=== PATIENT | male | born 1950 | race Caucasian/White ===

== ENCOUNTER → 2017-05-19 | Outpatient (CLI) | payer MEDICARE, OTHER | LOC: M ADAMS 11:13 | DX: S42.251A Displaced fracture of greater tuberosity of right humerus, initial encounter for closed fracture (principal); M85.80 Other specified disorders of bone density and structure, unspecified site; S20.211A Contusion of right front wall of thorax, initial encounter; W19.XXXA Unspecified fall, initial encounter; Y92.89 Other specified places as the place of occurrence of the external cause; Y93.89 Activity, other specified; Y99.8 Other external cause status | CPT/HCPCS: 71101 ==

== ENCOUNTER → 2019-06-22 | Outpatient (REF) | payer OTHER ==
[~2019-06-22] MED LIST: ASPI-527 PO; ATOR1TAB21 PO; DIGO0.12 PO; LEVA750T7 PO; LISI-542 PO; LOPR1TAB7 PO; METF500T13 PO; METO100T5 PO; NICO21DI3 TD; PRED20TAB PO; PROAAER10 INH; PROT1TAB2 PO; TAMS0.4C2 PO
[2019-06-22 17:34] LABS: APPEARANCE, URINE CLEAR (CLEAR); BACTERIA, URINE AUTO NEGATIVE (NEGATIVE); BILIRUBIN, URINE AUTO NEGATIVE (NEGATIVE); BLOOD, URINE BLOOD NEGATIVE (NEGATIVE); COLOR, URINE YELLOW (YELLOW); GLUCOSE, URINE (UA) AUTO 1+ mg/dL (NEGATIVE); KETONE, URINE AUTO NEGATIVE (NEGATIVE); LEUKOCYTE ESTERASE, URINE AUTO NEGATIVE (NEGATIVE); NITRITE, URINE AUTO NEGATIVE (NEGATIVE); PROTEIN, URINE AUTO NEGATIVE (NEGATIVE); RBC, URINE AUTO 1 /HPF (0-3); SQUAMOUS EPITHELIAL CELL UR AU 0 /HPF (0-6); UROBILINOGEN, URINE AUTO 0.2 mg/dL (0.0-2.0); WBC, URINE AUTO 5 /HPF (0-3)
== END ==
LOC: M SMT 16:56
PROVIDERS: ATTEND Nurse Practitioner Women's Health
DX: N40.1 Benign prostatic hyperplasia with lower urinary tract symptoms (principal)
CPT/HCPCS: 51798; 81001; 87088; 87186; G0463

== ENCOUNTER → 2019-10-25 | Outpatient (CLI) | payer MEDICARE, OTHER ==
[~2019-10-25] MED LIST changes: +AMOX875T2 PO; +CIPR-249 PO; +D3 +TAB PO; +DIGO0.123 PO; +GABA-1171 PO; +LISI2.5T2; +METF10004; +METO100T5; +TAMS1CAP17
--- NOTE | 2019-10-26 04:36 | REP ---
REASON: Heel pain. I have been given no history of trauma. The exam is limited by technique. The angle of Gissane appears somewhat acute and sclerotic. I cannot rule out the possibility of a compressed fracture involving the os calcis. Consider followup with CT. Electronically Signed by Jack Adair DO 10/26/2019 04:33 P
== END ==
LOC: M ADAMS 14:05
PROVIDERS: ATTEND Physician Assistant
DX: M79.671 Pain in right foot (principal)

== ENCOUNTER 2020-01-10 19:56 | Emergency (ER) | payer MEDICARE, OTHER ==
[~2020-01-10] VITALS: Ht 172.7 cm; Wt 94.5 kg
[~2020-01-10 19:56] MED LIST changes: -AMOX875T2 PO; -CIPR-249 PO; -D3 +TAB PO; -DIGO0.123 PO; -GABA-1171 PO; -LISI2.5T2; -METF10004; -METO100T5; -TAMS1CAP17
[2020-01-10 19:57] VITALS: BP 130/83
[2020-01-10] MEDS ORDERED: D3 +TAB PO (20:06)
[2020-01-10 21:07] LABS: HEMATOCRIT 47.6 % (42.0-52.0); HEMOGLOBIN 15.6 g/dl (13.5-17.5); MEAN CORPUSCULAR HEMOGLOBIN 32.1 pg (27.0-33.0); MEAN CORPUSCULAR HGB CONC 32.8 g/dl (32.0-36.5); MEAN CORPUSCULAR VOLUME 97.9 fl (80.0-96.0); PLATELET COUNT, AUTOMATED 188 10^3/uL (150-450); RED BLOOD COUNT 4.86 10^6/uL (4.30-6.10); WHITE BLOOD COUNT 8.8 10^3/uL (4.0-10.0)
[2020-01-10 21:32] LABS: BLOOD UREA NITROGEN 12 MG/DL (7-18); CALCIUM LEVEL 8.9 MG/DL (8.8-10.2); CARBON DIOXIDE LEVEL 29 MEQ/L (21-32); CHLORIDE LEVEL 106 MEQ/L (98-107); CREATININE FOR GFR 0.96 MG/DL (0.70-1.30); GLOMERULAR FILTRATION RATE > 60.0 (>42); GLUCOSE, FASTING 145 MG/DL (70-100); POTASSIUM SERUM 4.6 MEQ/L (3.5-5.1); SODIUM LEVEL 139 MEQ/L (136-145); URIC ACID 4.5 MG/DL (3.5-7.2)
--- NOTE | 2020-01-10 21:56 | REPVR ---
PROCEDURE INFORMATION: Exam: US Duplex Right Lower Extremity Veins, Limited Exam date and time: 01/10/2020 9:46 PM Age: 70 years old Clinical indication: Swelling (edema) of limb; Lower extremity, right; Additional info: Rubor TECHNIQUE: Imaging protocol: Real-time Duplex ultrasound of the Right Lower Extremity with 2-D bermudez scale, color Doppler flow and spectral waveform analysis with image documentation. Limited exam was focused on the right lower extremity veins. COMPARISON: No relevant prior studies available. FINDINGS: Right deep veins: Unremarkable. The common femoral, femoral, proximal profunda femoral and popliteal veins are patent without thrombus. Normal Doppler waveforms. Normal compressibility and/or augmentation response. Right superficial veins: Unremarkable. Saphenofemoral junction is patent without thrombus. Soft tissues: Unremarkable. IMPRESSION: No sonographic evidence of deep vein thrombosis. Electronically signed by: Jaswinder Varma On 01/10/2020 21:56:05 PM
[2020-01-10] MEDS ORDERED: GABA-1171 PO (22:26)
[2020-01-10] MEDS ORDERED: GABAPENTIN 100 MG CAP PO ONE (22:30)
[2020-02-09] MEDS ORDERED: DIGO0.123 PO (15:33)
[2020-02-09] MEDS ORDERED: TAMS1CAP17 (15:33)
[2020-02-09] MEDS ORDERED: LISI2.5T2 (15:33)
[2020-02-09] MEDS ORDERED: METO100T5 (15:33)
[2020-02-09] MEDS ORDERED: METF10004 (15:33)
[2020-02-16] MEDS ORDERED: AMOX875T2 PO (10:46)
[2020-02-16] MEDS ORDERED: CIPR-249 PO (13:33)
== END 2020-01-10 23:20 | disposition home or self-care (01) ==
LOC: M ED 19:56
DX: I73.9 Peripheral vascular disease, unspecified (principal); R22.41 Localized swelling, mass and lump, right lower limb; E11.40 Type 2 diabetes mellitus with diabetic neuropathy, unspecified; R20.8 Other disturbances of skin sensation; I51.9 Heart disease, unspecified; I10 Essential (primary) hypertension; E78.5 Hyperlipidemia, unspecified; J44.9 Chronic obstructive pulmonary disease, unspecified; F17.200 Nicotine dependence, unspecified, uncomplicated; Z79.82 Long term (current) use of aspirin; Z79.84 Long term (current) use of oral hypoglycemic drugs; Z79.899 Other long term (current) drug therapy

== ENCOUNTER → 2020-02-11 | Outpatient (CLI) | payer MEDICARE, OTHER ==
[~2020-02-11] MED LIST changes: +AMOX875T2 PO; +CIPR-249 PO; +D3 +TAB PO; +DIGO0.123 PO; +GABA-1171 PO; +LISI2.5T2; +METF10004; +METO100T5; +TAMS1CAP17
== END ==
LOC: M LABSMTC 10:05
PROVIDERS: ATTEND Anesthesiology
DX: Z01.812 Encounter for preprocedural laboratory examination (principal); Z20.828 Contact with and (suspected) exposure to other viral communicable diseases
CPT/HCPCS: C9803; U0003

== ENCOUNTER → 2020-02-16 | Day surgery (SDC) | payer OTHER ==
[~2020-02-16] VITALS: Ht 172.7 cm; Wt 95.6 kg
[~2020-02-16] MED LIST changes: +ACETAMINOPHEN 1000MG 100ML IV BTL (OFIRMEV) (J0131 PER 10MG) As Ordered ONE; +ACETAMINOPHEN TAB 650MG DOSE (2X325MG) PO PRN; +FUROSEMIDE 100MG/10ML VIAL (J1940) As Ordered ONE; +HumaLOG INSULIN (NovoLOG) PER UNIT As Ordered ONE; +HumaLOG INSULIN (NovoLOG) PER UNIT SC ONE; +LIDOCAINE 2% 100MG/5ML SDV (FOR ANES.) As Ordered ONE; +LR 1,000 ML IV ONE; +LR 1,000 ML IV SCH; +METOCLOPRAMIDE INJ 10MG/2ML VIAL (J2765 PER 1) IV PRN; +METOPROLOL 5 MG/5 ML VIAL As Ordered ONE; +MIDAZOLAM INJ 2MG/2ML VIAL (J2250 PER 1MG) As Ordered ONE; +ONDANSETRON 4MG/2ML VIAL As Ordered ONE; +ONDANSETRON 4MG/2ML VIAL IV PRN; +PERCOCET 5MG/325MG TAB PO PRN; +PHENYLEPHRINE 10MG/ML 1ML VIAL (J2370 PER 1) As Ordered ONE; +ROCURONIUM BROMIDE 50 MG/5 ML VIAL As Ordered ONE; +SUGAMMADEX SODIUM 500 MG/5 ML VIAL (BRIDION) As Ordered ONE; +VASOPRESSIN INJ 20 UNITS/ML VIAL As Ordered ONE; +ceFAZolin SOD 2 GM in IV 1 EA IV ONE; +dexameTHASONE 4 MG/ML 1ML VIAL (J1100 PER 1MG) As Ordered ONE; +fentaNYL 100 MCG/2 ML INJECTION (J3010) IV PRN; +fentaNYL 250 MCG/5 ML INJECTION (J3010) As Ordered ONE; +propofoL 200 MG/20 ML VIAL As Ordered ONE
--- NOTE | 2020-02-16 13:31 | ROOPDOC ---
[facility] Report Of Operation Report of Operation DATE OF PROCEDURE: 02/16/20 PREPROCEDURE DIAGNOSIS: Benign prostatic hyperplasia. POSTPROCEDURE DIAGNOSIS: Benign prostatic hyperplasia, meatal stenosis PROCEDURE: Cystoscopy, button transurethral electrovaporization of the prostate, urethral dilation. SURGEON: Daniella Vicente MD OVERHEAD LINE WORKER: None. ANESTHESIA: General. OPERATIVE INDICATIONS: This is a 70-year-old male with benign prostatic and lower urinary tract symptoms refractory to medical therapy. He was brought to the operating room today for treatment. DESCRIPTION OF PROCEDURE: The patient was brought to the operating room and general anesthesia was induced. Prophylactic antibiotics were infused. He was placed in the dorsal lithotomy position and prepped and draped in the usual sterile fashion. At this point, I attempted to insert a resectoscope into the urethral meatus using a visual obturator, but it would not go as the urethral meatus was a little bit too narrow. I, therefore, dilated the urethral meatus to a 30-Mohawk using curved metal sounds. I then was able to advance the resectoscope into the urethra and into the bladder. Of note, the patient's urethra was narrow throughout, but I was ultimately able to get the scope into the bladder. The patient had trilobar benign prostatic hyperplasia. I made note of the location of both ureteral orifices, as well as the verumontanum. At this point, I began vaporizing hyperplastic tissue on the median lobe and then circumferentially of the bladder neck. I then vaporized hyperplastic tissue on both lateral lobes. I kept doing this until there was a clear channel established. Once there was a clear channel established, hemostasis was obtained using the coagulation curren t. Once satisfied with hemostasis, the resectoscope was removed and an 18-Mohawk Stewart catheter was inserted into the bladder. The balloon was filled with 15 mL of sterile water and then the catheter was connected to gravity drainage. This marked the conclusion of the procedure. The patient was taken out of the dorsal lithotomy position, awakened from anesthesia and transported to the recovery room in stable condition. Estimated blood loss: 20 mL. Complications: None. Specimens: None. PLAN: The patient will followup in the clinic in approximately 1 week for catheter removal and a voiding trial. DANIELLA VICENTE MD Feb 16, 2020 13:31
[2020-02-16 16:00] VITALS: BP 129/81
== END | disposition home or self-care (01) ==
LOC: M SDC 09:58
PROVIDERS: ATTEND Urology
DX: N40.1 Benign prostatic hyperplasia with lower urinary tract symptoms (principal); N35.911 Unspecified urethral stricture, male, meatal; I10 Essential (primary) hypertension; I48.91 Unspecified atrial fibrillation; J44.9 Chronic obstructive pulmonary disease, unspecified; E11.9 Type 2 diabetes mellitus without complications; F17.218 Nicotine dependence, cigarettes, with other nicotine-induced disorders; E78.00 Pure hypercholesterolemia, unspecified; K21.9 Gastro-esophageal reflux disease without esophagitis; Z79.82 Long term (current) use of aspirin; Z79.84 Long term (current) use of oral hypoglycemic drugs; Z79.51 Long term (current) use of inhaled steroids; Z79.899 Other long term (current) drug therapy
CPT/HCPCS: 52601; J0131; J0690; J1100; J1940; J2250; J2370; J2405; J3010

== ENCOUNTER 2020-03-11 14:41 | Inpatient (IN) | payer OTHER ==
[~2020-03-11] VITALS: Ht 175.3 cm; Wt 99.3 kg
[~2020-03-11 14:41] MED LIST changes: -ACETAMINOPHEN 1000MG 100ML IV BTL (OFIRMEV) (J0131 PER 10MG) As Ordered ONE; -ACETAMINOPHEN TAB 650MG DOSE (2X325MG) PO PRN; -FUROSEMIDE 100MG/10ML VIAL (J1940) As Ordered ONE; -HumaLOG INSULIN (NovoLOG) PER UNIT As Ordered ONE; -HumaLOG INSULIN (NovoLOG) PER UNIT SC ONE; -LIDOCAINE 2% 100MG/5ML SDV (FOR ANES.) As Ordered ONE; -LISI2.5T2; +LISI2.5T2 PO; -LR 1,000 ML IV ONE; -LR 1,000 ML IV SCH; -METF10004; +METF10004 PO; -METO100T5; -METOCLOPRAMIDE INJ 10MG/2ML VIAL (J2765 PER 1) IV PRN; -METOPROLOL 5 MG/5 ML VIAL As Ordered ONE; -MIDAZOLAM INJ 2MG/2ML VIAL (J2250 PER 1MG) As Ordered ONE; -ONDANSETRON 4MG/2ML VIAL As Ordered ONE; -ONDANSETRON 4MG/2ML VIAL IV PRN; -PERCOCET 5MG/325MG TAB PO PRN; -PHENYLEPHRINE 10MG/ML 1ML VIAL (J2370 PER 1) As Ordered ONE; -ROCURONIUM BROMIDE 50 MG/5 ML VIAL As Ordered ONE; -SUGAMMADEX SODIUM 500 MG/5 ML VIAL (BRIDION) As Ordered ONE; -TAMS1CAP17; +TAMS1CAP17 PO; -VASOPRESSIN INJ 20 UNITS/ML VIAL As Ordered ONE; -ceFAZolin SOD 2 GM in IV 1 EA IV ONE; -dexameTHASONE 4 MG/ML 1ML VIAL (J1100 PER 1MG) As Ordered ONE; -fentaNYL 100 MCG/2 ML INJECTION (J3010) IV PRN; -fentaNYL 250 MCG/5 ML INJECTION (J3010) As Ordered ONE; -propofoL 200 MG/20 ML VIAL As Ordered ONE
[2020-03-11] MEDS ORDERED: ACETAMINOPHEN TAB 650MG DOSE (2X325MG) PO ONE (15:30)
[2020-03-11 16:15] LABS: BASO # 0.1 10^3/uL (0.0-0.2); BASO % 0.3 % (0.0-1.0); EOS % 0.1 % (0.0-3.0); HEMATOCRIT 46.2 % (42.0-52.0); HEMOGLOBIN 15.3 g/dl (13.5-17.5); LYMPH # 0.6 10^3/uL (1.5-5.0); LYMPH % 3.1 % (24.0-44.0); MEAN CORPUSCULAR HEMOGLOBIN 30.7 pg (27.0-33.0); MEAN CORPUSCULAR HGB CONC 33.1 g/dl (32.0-36.5); MEAN CORPUSCULAR VOLUME 92.8 fl (80.0-96.0); MONO # 1.2 10^3/uL (0.0-0.8); MONO % 6.3 % (0.0-5.0); NEUTROPHILS # 17.1 10^3/uL (1.5-8.5); NEUTROPHILS % 88.5 % (36.0-66.0); PLATELET COUNT, AUTOMATED 175 10^3/uL (150-450); RED BLOOD COUNT 4.98 10^6/uL (4.30-6.10); WHITE BLOOD COUNT 19.4 10^3/uL (4.0-10.0)
[2020-03-11] MEDS ORDERED: cefTRIAXone SOD 2 GM in D5W MINI-BAG PLUS 50 ML IV ONE (17:00)
--- NOTE | 2020-03-11 17:23 | REP ---
INDICATION: Altered Mental Status COMPARISON: 09/18/2015 TECHNIQUE: Portable AP view of the chest FINDINGS: The mediastinum and cardiac silhouette are stable and within normal limits for portable technique. The lung guerra are clear without acute consolidation, effusion, or pneumothorax. Skeletal structures are intact. IMPRESSION: No acute cardiopulmonary process appreciated. <Electronically signed by Kojo Meyers > 03/11/20 [id number]
[2020-03-11] MEDS ORDERED: NS 500 ML IV ONE (17:30)
[2020-03-11] MEDS ORDERED: METOPROLOL 5 MG/5 ML VIAL IV STA ×2 (17:45→18:47)
[2020-03-11 18:17] LABS: ACETAMINOPHEN LEVEL 3.6 UG/ML (10.0-30.0); ALBUMIN 3.4 GM/DL (3.2-5.2); ALT/SGPT 45 U/L (12-78); BILIRUBIN,DIRECT 0.4 MG/DL (0.0-0.2); BILIRUBIN,TOTAL 1.1 MG/DL (0.2-1.0); BLOOD UREA NITROGEN 18 MG/DL (7-18); CALCIUM LEVEL 9.5 MG/DL (8.8-10.2); CARBON DIOXIDE LEVEL 26 MEQ/L (21-32); CHLORIDE LEVEL 102 MEQ/L (98-107); CK-MB VALUE MASS 1.2 NG/ML (<3.6); CPK CREATINE PHOSPHOKINASE 47 U/L (39-308); CREATININE FOR GFR 1.09 MG/DL (0.70-1.30); DIGOXIN LEVEL 0.4 NG/ML (0.5-2.0); ETHYL ALCOHOL (ETHANOL) < 0.003 % (0.000-0.010); GLOMERULAR FILTRATION RATE > 60.0 (>42); GLUCOSE, FASTING 195 MG/DL (70-100); MB/CK RELATIVE INDEX 2.55 (< OR =4); POTASSIUM SERUM 4.7 MEQ/L (3.5-5.1); SALICYLATE LEVEL < 1.7 MG/DL (5.0-30.0); SODIUM LEVEL 136 MEQ/L (136-145); THYROID STIMULATING HORMONE 0.294 uIU/ML (0.358-3.740); TOTAL PROTEIN 6.6 GM/DL (6.4-8.2); TROPONIN I 0.04 NG/ML (< 0.10)
--- NOTE | 2020-03-11 18:18 | REPVR ---
PROCEDURE INFORMATION: Exam: CT Head Without Contrast Exam date and time: 03/11/2020 6:00 PM Age: 70 years old Clinical indication: Altered mental status/memory loss TECHNIQUE: Imaging protocol: Computed tomography of the head without contrast. Radiation optimization: All CT scans at this facility use at least one of these dose optimization techniques: automated exposure control; mA and/or kV adjustment per patient size (includes targeted exams where dose is matched to clinical indication); or iterative reconstruction. COMPARISON: No relevant prior studies available. FINDINGS: Brain: There is no acute intracranial hemorrhage, cerebral edema, or midline shift. Age-related cerebral and cerebellar volume loss is present. Cerebral ventricles: No hydrocephalus. Bones/joints: No acute fracture. Paranasal sinuses: There is no acute sinusitis. Mastoid air cells: Visualized mastoid air cells are well aerated. Orbital cavity: Unremarkable as visualized. Soft tissues: Unremarkable. IMPRESSION: No acute intracranial abnormality. Electronically signed by: Josiah Vasquez On 03/11/2020 18:18:46 PM
[2020-03-11] MEDS ORDERED: VITA-122 PO (18:44)
[2020-03-11] MEDS ORDERED: HYDR-3713 PO (18:44)
[2020-03-11] MEDS ORDERED: GUAI400T9 PO (18:44)
[2020-03-11] MEDS ORDERED: PATIENT COMMENT (18:46)
[2020-03-11 18:52] LABS: FREE T4 1.37 NG/DL (0.76-1.46)
[2020-03-11 19:14] LABS: AMPHETAMINES LEVEL URINE NEGATIVE (NEGATIVE); BARBITURATES URINE NEGATIVE (NEGATIVE); BENZODIAZEPINES URINE NEGATIVE (NEGATIVE); CANNABINOIDS URINE NEGATIVE (NEGATIVE); COCAINE METABOLITE URINE NEGATIVE (NEGATIVE); METHADONE URINE NEGATIVE (NEGATIVE); OPIATES URINE NEGATIVE (NEGATIVE); PHENCYCLIDINE URINE NEGATIVE (NEGATIVE)
[2020-03-11] MEDS ORDERED: NS 1,000 ML IV ONE (20:00)
[2020-03-11] MEDS ORDERED: MOM 30ML SUSPENSION UDC PO PRN (20:00)
[2020-03-11] MEDS ORDERED: MAALOX 30 ML SUSP *UDC PO PRN (20:00)
[2020-03-11] MEDS ORDERED: DIGOXIN INJ 0.5 MG/2 ML AMP (J1160) IV SCH (20:00)
[2020-03-11] MEDS ORDERED: SODIUM CHLORIDE 0.9% 1000ML IV ONE (20:00)
--- NOTE | 2020-03-11 20:05 | HPEPDOC ---
[facility] Medical History & Physical Date of Admission Mar 11, 2020 Date of Service: Mar 11, 2020 Primary Care Physician: Estefania Herzog Attending Physician: TRACEY MORALEZ MD History and Physical TIME OF SERVICE: 9:37 PM CHIEF COMPLAINT: Confusion HISTORY OF PRESENT ILLNESS: This 70 year old woman was found by his walking around his backyard in a confused state at around 1 PM; she noted that he appeared to be leaning to the left when he was walking. Based on EMS assessment, he was noted to be febrile. Per Dr. Solomon the patient did not answer any questions and just stared at him blankly. Some of the nursing staff reported that the patient was able to say his name but he wasn't able to provide some history. At the time of my evaluation, the patient was unable to explain why he came to the hospital, and occasionally stared at me or stared into space, as I asked him questions. During one of the moments when he was lucid, he denied having any pain. REVIEW OF SYSTEMS: Unobtainable because the patient is confused PAST MEDICAL/ SURGICAL HISTORY: Atrial fibrillation HTN Type 2 diabetes Dyslipidemia Probable COPD has a [id number] habit BPH Bilateral inguinal hernia repair and umbilical hernia repair SOCIAL HISTORY: He smokes He lives with his FAMILY HISTORY: Unobtainable because the patient is confused ALLERGIES: Please see below. HOME MEDICATIONS: Please see below. PHYSICAL EXAMINATION: Vital Signs Date Time Temp Pulse Resp B/P (MAP) Pulse Ox O2 Delivery O2 Flow Rate FiO2 03/11/20 15:00 101.0 128 20 145/78 97 Nasal Cannula 2.0 GEN: well-nourished / well developed INTEGUMENT: not flushed/ not jaundice / has multiple ulcers on RLE, the foot and leg are purplish in color and cool to touch but he does't grimace or withdraw w ith palpation of the lower leg or foot HEENT: lips acyanotic /mucus membranes moist and pink CVS: HR irregularly irregular /NMRG/ radial pulses intact/ LLE edema LUNGS: no coughing / breath sounds are diminished ABDOMEN: Contour (flat ) /soft & he doesn't grimace with palpation MSK/EXTREMITIES: NCAT / LLE is swollen when compared to RLE PSYCH: alert / not tracking my movements / inconsistently following commands and answering questions / intermittently seems distracted and stares into space LABORATORY DATA: 03/11/20 15:28 03/11/20 17:22 03/11/20 15:28: Immature Granulocyte % (Auto) 1.7, Neutrophils (%) (Auto) 88.5H, Lymphocytes (%) (Auto) 3.1L, Monocytes (%) (Auto) 6.3H, Eosinophils (%) (Auto) 0.1, Basophils (%) (Auto) 0.3, Neutrophils # (Auto) 17.1H, Lymphocytes # (Auto) 0.6L, Monocytes # (Auto) 1.2H, Eosinophils # (Auto) 0.0, Basophils # (Auto) 0.1, Nucleated Red Blood Cells % (auto) 0.0, Urine Color YELLOW, Urine Appearance CLOUDYH, Urine pH 6.0, Urine Specific Barrett 1.019, Urine Protein 1+H, Urine Glucose (UA) 1+H, Urine Ketones NEGATIVE, Urine Blood 3+H, Urine Nitrite POSITIVEH, Urine Bilirubin NEGATIVE, Urine Urobilinogen 0.2, Urine Leukocyte Esterase 3+H, Urine WBC (Auto) TNTCH, Urine RBC (Auto) 177H, Urine Hyaline Casts (Auto) 0, Urine Bacteria (Auto) 2+H, Urine Squamous Epithelial Cells 1, Urine Mucus (Auto) SMALL, Urine Sperm (Auto) , Lactic Acid Level 2.3*H, Ammonia 28, Urine Opiates Screen NEGATIVE, Urine Methadone Screen NEGATIVE, Urine Barbiturates Screen NEGATIVE, Urine Phencyclidine Screen NEGATIVE, Urine Amphetamines Screen NEGATIVE, Urine Benzodiazepines Screen NEGATIVE, Urine Cocaine Metabolite Screen NEGATIVE, Urine Cannabinoids Screen NEGATIVE 03/11/20 17:22: Anion Gap 8, Glomerular Filtration Rate > 60.0, Calcium Level 9.5, Total Bi lirubin 1.1H, Direct Bilirubin 0.4H, Aspartate Amino Transf (AST/SGOT) 14, Alanine Aminotransferase (ALT/SGPT) 45, Alkaline Phosphatase 125H, Total Creatine Kinase 47, Creatine Kinase MB 1.2, Creatine Kinase MB Relative Index 2.55, Troponin I 0.04, Total Protein 6.6, Albumin 3.4, Albumin/Globulin Ratio 1.1, Thyroid Stimulating Hormone (TSH) 0.294L, Free Thyroxine 1.37, Digoxin Level 0.4L, Salicylates Level < 1.7L, Acetaminophen Level 3.6L, Ethyl Alcohol Level < 0.003 IMAGING: CT head "No acute intracranial abnormality. " Chest xray "No acute cardiopulmonary process appreciated." MRI Brain "No acute intracranial lesion or injury within the limits of motion artifact." MRA Brain "Severely limited by motion artifact. No gross large vessel occlusion." MICROBIOLOGY: 03/11/20 Urine Culture, Received Pending 03/11/20 Respiratory Virus Panel (PCR) (DAISY) - Final, Complete 03/11/20 Blood Culture, Received Pending 03/11/20 Blood Culture, Received Pending ASSESSMENT: Mr. Vazquez is a 70-year-old with a history of atrial fibrillation, HTN, dyslipidemia, DM, BPH and probable COPD who was brought to the hospital for evaluation of confusion; he'll be admitted for management of sepsis secondary to UTI, metabolic encephalopathy, and rapid A. fib. PLAN: 1. Sepsis 2/2 UTI SIRS criteria: Temp >101 / HR >90 / WBC >12 / RR >20 Lactic acid >1 UA reviewed He received ceftriaxone and IV fluids in the ER Plan: admit to ICU / telemetry / trend lactic acid/ c/w IVF and ceftriaxone pending UCx and blood cx / Acetaminophen PRN for fever / target MAP at least 65 to 70 mmHG / f/u Is and Os with target UOP of at least 0.5 ml/kg/H / target serum glucose 140-180 while acutely ill 2. Encephalopathy Likley delerium due to infection and hypoperfusion of the brain due to rapid A. fib. I CT, MRI and MRA of the head are unrevealing Plan: frequent neurochecks / treat infection and afib / give one dose of Narcan now / hold Hydrocodone/Acetaminophen 3. Atrial Fibrillation w RVR Likely due to sepsis EKG showed rapid A. fib with a rate of 126 His dig levels were also little bit low. He received some digoxin and Lopressor in the ER, but continues to be tachycardic For unclear reasons he doesn't seem to be taking anticoagulation at home Plan: telemetry / c/w digoxin / start heparin drip / the day time team may consider calling his or PCP to obtain info about AC / trend trops & f/u Echo to r/o valvulopathy 4. Tachypnea likely 2/2 Mild Acute COPD I couldn't find documentation confirming a formal diagnosis of COPD but he has been smoking for 55yrs, takes albuterol at home and has treated for presumed acute COPD during previous hospital admissions Plan: supplemental O2 / continuous pulse oximetry / aspiration precautions / f/u VBG / Dunebs Q6H, Levalbuterol Q4HP/ Solmedrol now / Prednisone + PPI / he should be refer to [facility] for PFTs when he is ready for discharge 5. LLE swelling Plan: f/u US to r/o DVT 6. RLE discoloration and ulcers possibly due to PVD Plan: f/u RLE arterial duplex / day time team may consider Wound care consult for ulcers if they feel it is indicated in the morning 7. Chronic HTN Plan: c/w Metoprolol bc & hold lisinopril b/c I anticipate blood pressure might drop because of sepsis 8. Type 2 diabetes Plan: diabetic diet / f/u accuchecks & A1C / hypoglycemia protocol / sliding scale insulin / hold Metformin 9. Dyslipidemia Plan: Atorvastatin 10. BPH Plan: hold tamsulosin to avoid hypotension / Stewart DVT PROPHYLAXIS: Heparin drip DISPOSITION: home after more than 2 midnight's stay LATE ENTRY Hypomagnesemia. Plan: Replete magnesium Home Medications Scheduled Aspirin (Aspirin EC) 325 Mg Tab, 325 MG PO DAILY Atorvastatin Calcium (Atorvastatin Calcium) 20 Mg Tab, 20 MG PO DAILY Cholecalciferol (Vitamin D3) (Vitamin D3) 25 Mcg Tablet, 50 MCG PO DAILY Digoxin (Digoxin) 125 Mcg Tablet, 125 MCG PO DAILY Lisinopril (Lisinopril) 2.5 Mg Tablet, 2.5 MG PO DAILY Metformin HCl (Metformin HCl) 1,000 Mg Tablet, 1,000 MG PO BID Metoprolol Tartrate (Metoprolol Tartrate) 100 Mg Tablet, 100 MG PO BID Tamsulosin Hcl (Tamsulosin HCl) 0.4 Mg Capsule, 0.8 MG PO DAILY Scheduled PRN Albuterol Sulfate (Proair Hfa) 108 Mcg/Act Aer, 216 MCG INH Q4H PRN for SHORTNESS OF BREATH Guaifenesin (Guaifenesin) 400 Mg Tablet, 400 MG PO Q4H PRN for COUGH Hydrocodone/Acetaminophen (Hydrocodone-Acetamin 5-325 mg) 1 Each Tablet, 1 TAB PO Q4-6HP PRN for PAIN MDD 4 Miscellaneous Medications [Patient Comment] UNABLE TO VERIFY MEDICATIONS WITH PATIENT - MED LIST OBTAINED FROM PILL BOTTLES. PATIENT'S UNSURE IF PATIENT TOOK MORNING MEDICATIONS Allergies Coded Allergies: No Known Allergies (Unverified , 09/19/15) A-FIB/CHADSVASC A-FIB History Current/History of A-Fib/PAF?: No Current PO Anticoag Therapy: No TRACEY MORALEZ MD Mar 11, 2020 20:05
[2020-03-11] MEDS ORDERED: GLUCAGON INJ 1MG VIAL SC PRN (20:15)
[2020-03-11] MEDS ORDERED: DEXTROSE 50% 50 ML SYRINGE IV PRN (20:15)
[2020-03-11] MEDS ORDERED: HEPARIN SOD (PORCINE) 5000UNITS/ML 1ML VIAL/SYRINGE IV PRN (20:15)
[2020-03-11] MEDS ORDERED: GLUCOSE 4GM CHEW TABLET PO PRN (20:15)
[2020-03-11 21:16] LABS: VENOUS HCO3 24.2 MEQ/L (23.0-27.0); VENOUS O2 SATURATION 84.4 % (60.0-80.0); VENOUS PARTIAL PRESSURE CO2 38.1 mmHg (38.0-50.0); VENOUS STANDARD HCO3 24.1 MEQ/L; VENOUS TOTAL CO2 25.3 MEQ/L (24.0-28.0)
[2020-03-11] MEDS: HEPARIN DRIP 25,000 UNITS in IV 1 EA IV SCH (21:16)
[2020-03-11 21:21] LABS: MAGNESIUM LEVEL 1.5 MG/DL (1.8-2.4); NT-PRO BNP 591 PG/ML (<125); PHOSPHORUS LEVEL 3.1 MG/DL (2.5-4.9)
[2020-03-11 21:26] LABS: HEMATOCRIT 45.2 % (42.0-52.0); HEMOGLOBIN 14.8 g/dl (13.5-17.5); MEAN CORPUSCULAR HEMOGLOBIN 30.8 pg (27.0-33.0); MEAN CORPUSCULAR HGB CONC 32.7 g/dl (32.0-36.5); MEAN CORPUSCULAR VOLUME 94.2 fl (80.0-96.0); PLATELET COUNT, AUTOMATED 187 10^3/uL (150-450); WHITE BLOOD COUNT 20.9 10^3/uL (4.0-10.0)
--- NOTE | 2020-03-11 21:30 | REPVR ---
PROCEDURE INFORMATION: Exam: MR Head Without Contrast Exam date and time: 03/11/2020 8:40 PM Age: 70 years old Clinical indication: Altered mental status/memory loss; Confusion or disorientation; Patient HX: AMS; Additional info: CVA TECHNIQUE: Imaging protocol: MR of the head without contrast. COMPARISON: CT Head without contrast 03/11/2020 5:52 PM FINDINGS: Limitations: Extensive motion artifact limits this scan.. Brain: There is volume loss. DWI demonstrates no evidence of acute infarct. Gradient echo images demonstrate no evidence of hemorrhage. No extra-axial collection. Cerebral ventricles: There is no hydrocephalus. Bones/joints: Unremarkable. Paranasal sinuses: Normal as visualized. No acute sinusitis. Mastoid air cells: Normal as visualized. No mastoid effusion. Orbits: Unremarkable. Soft tissues: Unremarkable. IMPRESSION: No acute intracranial lesion or injury within the limits of motion artifact. Electronically signed by: Prince Fiore On 03/11/2020 21:30:27 PM
--- NOTE | 2020-03-11 21:32 | REPVR ---
PROCEDURE INFORMATION: Exam: MR Angiogram Head Without Contrast, Arteries Exam date and time: 03/11/2020 8:40 PM Age: 70 years old Clinical indication: Cognitive deficit; Altered mental status; Patient HX: AMS; Additional info: CVA TECHNIQUE: Imaging protocol: MR angiogram head without contrast. Exam focused on the arteries. 3D rendering (Not supervised by radiologist): MIP and/or 3D reconstructed images were created by the technologist. COMPARISON: CT Head without contrast 03/11/2020 5:52 PM FINDINGS: ANTERIOR CIRCULATION: Right internal carotid artery: Intracranial segment is patent with no significant stenosis. No aneurysm. Right middle cerebral artery: No occlusion or significant stenosis. No aneurysm. Right anterior cerebral artery: No occlusion or significant stenosis. No aneurysm. Left internal carotid artery: Intracranial segment is patent with no significant stenosis. No aneurysm. Left middle cerebral artery: No occlusion or significant stenosis. No aneurysm. Left anterior cerebral artery: No occlusion or significant stenosis. No aneurysm. POSTERIOR CIRCULATION: Right vertebral artery: No occlusion or significant stenosis. No aneurysm. Left vertebral artery: No occlusion or significant stenosis. No aneurysm. Basilar artery: No occlusion or significant stenosis. No aneurysm. Right posterior cerebral artery: No occlusion or significant stenosis. No aneurysm. Left posterior cerebral artery: No occlusion or significant stenosis. No aneurysm. Other findings: Extensive motion artifact limits the scan. IMPRESSION: Severely limited by motion artifact. No gross large vessel occlusion. Electronically signed by: Prince Fiore On 03/11/2020 21:31:57 PM
[2020-03-11 21:40] LABS: INR 1.16; PROTHROMBIN TIME 15.1 SECONDS (12.5-14.3)
[2020-03-11 21:41] LABS: PARTIAL THROMBOPLASTIN TIME 31.5 SECONDS (24.2-38.5)
[2020-03-11 22:00] VITALS: BP 122/79
--- NOTE | 2020-03-11 22:09 | ECGEPIP ---
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
[2020-03-11 23:45] VITALS: BP 127/74
--- NOTE | 2020-03-11 23:52 | REPVR ---
PROCEDURE INFORMATION: Exam: US Duplex Left Lower Extremity Veins, Limited Exam date and time: 03/11/2020 11:46 PM Age: 70 years old Clinical indication: Swelling (edema) of limb; Lower extremity, left; Additional info: R/O dvt TECHNIQUE: Imaging protocol: Real-time Duplex ultrasound of the Left Lower Extremity with 2-D bermudez scale, color Doppler flow and spectral waveform analysis with image documentation. Limited exam focused on the left lower extremity veins. COMPARISON: No relevant prior studies available. FINDINGS: Left deep veins: Unremarkable. The common femoral, femoral, proximal profunda femoral and popliteal veins are patent without thrombus. Normal Doppler waveforms. Normal compressibility and/or augmentation response. Left superficial veins: Unremarkable. Saphenofemoral junction is patent without thrombus. Soft tissues: Unremarkable. IMPRESSION: No evidence of deep vein thrombosis. Electronically signed by: Prince Fiore On 03/11/2020 23:52:01 PM
[2020-03-11] MEDS ORDERED: NALOXONE INJ 0.4MG/1ML VIAL (J2310 PER 1MG) IV STA (23:54)
[2020-03-12] VITALS (23 sets, daily range): BP systolic 102–170; BP diastolic 56–84
[2020-03-12] MEDS ORDERED: ACETAMINOPHEN 650 MG SUPP PR ONE
[2020-03-12] MEDS: HumaLOG INSULIN (NovoLOG) PER UNIT SC SCH ×4 (00:14→17:24)
[2020-03-12] MEDS ORDERED: methylPREDNISolone 125MG 2ML VIAL IV STA (01:28)
[2020-03-12] MEDS ORDERED: LEVALBUTEROL 1.25 MG/0.5 ML CONCENTRATE NEB INH PRN (01:30)
[2020-03-12] MEDS ORDERED: MAG SULF 1GM/100ML (MAG RUN) 1 GM in IV 1 EA IV ONE (01:30)
[2020-03-12] MEDS ORDERED: NS 1,000 ML IV ONE (01:30)
[2020-03-12] MEDS ORDERED: cefTRIAXone SOD 1GM VIAL (J0696 PER 250MG) IM SCH (02:00)
[2020-03-12 03:00] LABS: PHOSPHORUS LEVEL 2.2 MG/DL (2.5-4.9); TROPONIN I 0.05 NG/ML (< 0.10)
[2020-03-12] MEDS: NICOTINE 14 MG/24 HR TRANSDERMAL TD SCH ×2 (03:56→20:38)
[2020-03-12] MEDS ORDERED: ACETAMINOPHEN 650 MG SUPP PR PRN (05:00)
[2020-03-12] MEDS: IPRATROPIUM 0.5MG/ALBUTEROL 2.5MG INH SOL UD 3ML (DUONEB) NEB SCH ×4 (05:44→19:16)
[2020-03-12] MEDS: METOPROLOL TART 25 MG TABLET PO SCH ×3 (07:51→22:16)
[2020-03-12] MEDS: LACTOBACILLUS ACIDOPHILUS CAP (BACID) PO SCH ×3 (08:00→17:24)
[2020-03-12 08:18] LABS: BASO % 0.2 % (0.0-1.0); HEMATOCRIT 41.5 % (42.0-52.0); HEMOGLOBIN 13.7 g/dl (13.5-17.5); LYMPH # 0.7 10^3/uL (1.5-5.0); LYMPH % 4.3 % (24.0-44.0); MEAN CORPUSCULAR HEMOGLOBIN 31.1 pg (27.0-33.0); MEAN CORPUSCULAR VOLUME 94.1 fl (80.0-96.0); MONO # 0.7 10^3/uL (0.0-0.8); MONO % 4.1 % (0.0-5.0); NEUTROPHILS # 15.4 10^3/uL (1.5-8.5); NEUTROPHILS % 89.1 % (36.0-66.0); PLATELET COUNT, AUTOMATED 150 10^3/uL (150-450); RED BLOOD COUNT 4.41 10^6/uL (4.30-6.10); WHITE BLOOD COUNT 17.3 10^3/uL (4.0-10.0)
[2020-03-12 08:30] LABS: D-DIMER QUANT 1087.76 ng/ml (<500)
[2020-03-12 08:49] LABS: FREE THYROXINE INDEX 2.8 % (1.4-3.8); THYROID STIMULATING HORMONE 0.386 uIU/ML (0.358-3.740); THYROXINE (T4) 7.7 UG/DL (4.5-12.0)
[2020-03-12] MEDS ORDERED: ASPIRIN ENTERIC 325 MG TAB PO SCH (09:00)
[2020-03-12] MEDS ORDERED: METOPROLOL TARTRATE 100 MG TAB PO SCH (09:00)
[2020-03-12] MEDS ORDERED: VANCOMYCIN HCL 1,000 MG, VIAL MATE ADAPTER 1 EACH in D5W 250 ML IV ONE (09:00)
[2020-03-12] MEDS ORDERED: LISINOPRIL *2.5 MG* TAB PO SCH (09:00)
[2020-03-12 09:01] LABS: ALT/SGPT 35 U/L (12-78); BILIRUBIN,TOTAL 0.7 MG/DL (0.2-1.0); BLOOD UREA NITROGEN 17 MG/DL (7-18); C REACTIVE PROTEIN QUANTITATIV 9.91 MG/DL (0.00-0.30); CALCIUM LEVEL 8.8 MG/DL (8.8-10.2); CARBON DIOXIDE LEVEL 23 MEQ/L (21-32); CHLORIDE LEVEL 105 MEQ/L (98-107); CK-MB VALUE MASS 4.9 NG/ML (<3.6); CPK CREATINE PHOSPHOKINASE 599 U/L (39-308); CREATININE FOR GFR 1.03 MG/DL (0.70-1.30); FERRITIN 468 NG/ML (26-388); GLOMERULAR FILTRATION RATE > 60.0 (>42); GLUCOSE, FASTING 215 MG/DL (70-100); LDH LACTATE DEHYDROGENASE 221 U/L (87-241); MB/CK RELATIVE INDEX 0.82 (< OR =4); POTASSIUM SERUM 4.1 MEQ/L (3.5-5.1); SODIUM LEVEL 137 MEQ/L (136-145); TOTAL PROTEIN 6.2 GM/DL (6.4-8.2); TROPONIN I 0.05 NG/ML (< 0.10)
[2020-03-12 09:08] LABS: ERYTHROCYTE SEDIMENTATION RATE 20 mm/hr (0-20)
[2020-03-12] MEDS: PANTOPRAZOLE 40MG TAB (PROTONIX) PO SCH (09:14)
[2020-03-12] MEDS: TAMSULOSIN 0.4 MG CAP PO SCH (09:14)
[2020-03-12] MEDS: predniSONE 20 MG TAB PO SCH (09:14)
[2020-03-12] MEDS: ATORVASTATIN 20 MG TAB PO SCH (09:14)
[2020-03-12] MEDS: VITAMIN D 1,000 INTERNATIONAL UNITS TABLET PO SCH (09:14)
[2020-03-12] MEDS: DIGOXIN 0.125 MG TAB PO SCH (09:14)
[2020-03-12] MEDS ORDERED: VANCOMYCIN HCL 750 MG, VIAL MATE ADAPTER 1 EACH in D5W 250 ML IV ONE (10:00)
[2020-03-12 10:14] LABS: HEMOGLOBIN A1c 7.2 %
--- NOTE | 2020-03-12 10:26 | IPNPDOC ---
Date Seen The patient was seen on 03/12/20. Progress Note SUBJECTIVE: All patient was seen and examined at the bedside chart it's been reviewed. He remains tachycardic in atrial fibrillation but denies any chest pain, pressure, tightness, lightheadedness, palpitations, no nausea, vomiting, epigastric pain, feeling of impending doom or diaphoresis. He remains febrile with MAXIMUM TEMPERATURE of 103.8 despite being on IV ceftriaxone 1 g every 24 hourly. OBJECTIVE: PHYSICAL EXAMINATION: VITAL SIGNS: SEE BELOW. GENERAL: Awake, alert, oriented to person, answering questions appropriately. No respiratory distress or use of respiratory accessory muscles. HEENT: Dry mucous membranes, no JVD, thyromegaly or cervical lymphadenopathy. LUNGS: Diminished breath sounds. No wheezing or rales. No adventitious breath sounds. No use of respiratory accessory muscles. HEART: S1, S2, irregularly irregular. Tachycardic ABDOMEN:, Soft, nontender, nondistended, positive bowel sounds. No rebound or guarding EXTREMITIES: 2+ pitting edema to the sacrum. Chronic venous stasis changes bilaterally. Ecchymosis. Chronic venous ulcers noted in the right lower extr emity. 2 on the medial aspect 2 in the dorsal and 2 on the lateral aspect. No signs of cellulitis clean without purulence. LABORATORY DATA: SEE BELOW. MICROBIOLOGY: SEE BELOW. IMAGING STUDIES: SEE BELOW ASSESSMENT: 70-year-old with past medical history significant for chronic A. fib, hypertension, staph epi UTI, diabetes, dyslipidemia, [id number] history of tobacco abuse, BPH, bilateral inguinal hernia repair and umbilical hernia repair, still actively smoking cigarettes presented to the emergency room with complaints of confusion was found to have urinary tract infection and A. fib wit h RVR. Sepsis secondary to urinary tract infection Urinary tract infection A. fib with RVR Diabetes Dyslipidemia. Tobacco abuse. Actively smoking. BPH. Hypertension. Dyslipidemia. Acute encephalopathy secondary to sepsis and A. fib with RVR. Chronic venous sufficiency. Chronic venous ulcers in the bilateral lower extremities. PLAN: Patient has a history of gram-positive urinary tract infection. We will continue the patient's ceftriaxone but will add vancomycin and check an MRSA screen. If t he MRSA screen is negative, we'll discontinue patient's intravenous vancomycin. Blood cultures have also been sent and we will await the results. Due to increased risk of C. difficile with broad-spectrum antibiotics. We will start him on CHANDRA ID with meals and at hour of sleep. He is continued on his metoprolol for rate control, but will increase the dose to 75 mg every 8 hourly for a goal of 5 less than 100 on the heart rate. He is continued on a 22 g sodium consistent carbohydrate diet, sliding scale, fingersticks every before meals and at bedtime. Tobacco cessation counseling. Nicotine patch. Continue all other medications. If it has not already been checked. We'll also check A1c and lipid panel and adjust medications accordingly to reach his goals, PT will be consulted once patient's heart rate is improved and rate controlled. He may be transferred to medical surgical floor for now. He continues to need PCU. Digoxin level was within normal 0.4. If the blood pressure were to decrease less than 100. He may need IV digoxin for better rate control.. [facility] Vital Signs Date Time Temp Pulse Resp B/P (MAP) Pulse Ox O2 Delivery O2 Flow Rate FiO2 03/12/20 09:14 102 03/12/20 07:51 146/80 03/12/20 06:00 103.8 29 95 Room Air 03/11/20 16:30 2.0 I&O- Last 24 Hours up to 6 AM 03/12/20 06:00 Intake Total 3773.0 ml Output Total 330 ml Balance 3443.0 ml Laboratory Data 24H LABS Laboratory Tests 2 03/11/20 15:28: Immature Granulocyte % (Auto) 1.7, Neutrophils (%) (Auto) 88.5H, Lymphocytes (%) (Auto) 3.1L, Monocytes (%) (Auto) 6.3H, Eosinophils (%) (Auto) 0.1, Basophils (%) (Auto) 0.3, Neutrophils # (Auto) 17.1H, Lymphocytes # (Auto) 0.6L, Monocytes # (Auto) 1.2H, Eosinophils # (Auto) 0.0, Basophils # (Auto) 0.1, Nucleated Red Blood Cells % (auto) 0.0, Urine Color YELLOW, Urine Appearance CLOUDYH, Urine pH 6.0, Urine Specific [place] 1.019, Urine Protein 1+H, Urine Glucose (UA) 1+H, Urine Ketones NEGATIVE, Urine Blood 3+H, Urine Nitrite POSITIVEH, Urine Bilir ubin NEGATIVE, Urine Urobilinogen 0.2, Urine Leukocyte Esterase 3+H, Urine WBC (Auto) TNTCH, Urine RBC (Auto) 177H, Urine Hyaline Casts (Auto) 0, Urine Bacteria (Auto) 2+H, Urine Squamous Epithelial Cells 1, Urine Mucus (Auto) SMALL, Urine Sperm (Auto) , Lactic Acid Level 2.3*H, Ammonia 28, Urine Opiates Screen NEGATIVE, Urine Methadone Screen NEGATIVE, Urine Barbiturates Screen NEGATIVE, Urine Phencyclidine Screen NEGATIVE, Urine Amphetamines Screen NEGATIVE, Urine Benzodiazepines Screen NEGATIVE, Urine Cocaine Metabolite Screen NEGATIVE, Urine Cannabinoids Screen NEGATIVE 03/11/20 17:22: Anion Gap 8, Glomerular Filtration Rate > 60.0, Calcium Level 9.5, Phosphorus Level 3.1, Magnesium Level 1.5L, Total Bilirubin 1.1H, Direct Bilirubin 0.4H, Aspartate Amino Transf (AST/SGOT) 14, Alanine Aminotransferase (ALT/SGPT) 45, Alkaline Phosphatase 125H, Total Creatine Kinase 47, Creatine Kinase MB 1.2, Creatine Kinase MB Relative Index 2.55, Troponin I 0.04, CK-Nwn-B-Type Natriuretic Peptide 591H, Total Protein 6.6, Albumin 3.4, Albumin/Globulin Ratio 1.1, Thyroid Stimulating Hormone (TSH) 0.294L, Free Thyroxine 1.37, Digoxin Level 0.4L, Salicylates Level < 1.7L, Acetaminophen Level 3.6L, Ethyl Alcohol Level < 0.003 03/11/20 21:09: Nucleated Red Blood Cells % (auto) 0.0, Prothrombin Time 15.1H, Prothromb Time International Ratio 1.16, Activated Partial Thromboplast Time 31.5, Blood Gas Bicarbonate Standard 24.1, Venous Blood pH 7.420, Venous Blood Partial Pressure CO2 38.1, Venous Blood Partial Pressure O2 46.0, Venous Blood Total Carbon Dioxide 25.3, Venous Blood HCO3 24.2, Venous Blood Oxygen Saturation 84.4H, Venous Blood Base Excess 0.0, Lactic Acid Followup at 4 Hours 3.2*H 03/11/20 23:39: Bedside Glucose (Misc Panel) 187H 03/12/20 01:45: Activated Partial Thromboplast Time 70.0H, Lactic Acid Level 2.7*H, Phosphorus Level 2.2#L, Troponin I 0.05# 03/12/20 05:48: Bedside Glucose (Misc Panel) 182H 03/12/20 07:53: Activated Partial Thromboplast Time 98.5H, Troponin I 0.05, Immature Granulocyte % (Auto) 2.3, Neutrophils (%) (Auto) 89.1H, Lymphocytes (%) (Auto) 4.3L, Monocytes (%) (Auto) 4.1, Eosinophils (%) (Auto) 0.0, Basophils (%) (Auto) 0.2, Neutrophils # (Auto) 15.4H, Lymphocytes # (Auto) 0.7L, Monocytes # (Auto) 0.7, Eosinophils # (Auto) 0.0, Basophils # (Auto) 0.0, Nucleated Red Blood Cells % (auto) 0.0, Erythrocyte Sedimentation Rate 20, Fibrinogen 466H, D-Dimer, Quantitative 1087.76H, Anion Gap 9, Glomerular Filtration Rate > 60.0, Estimated Mean Plasma Glucose 160H, Hemoglobin A1c 7.2, Lactic Acid Followup at 4 Hours 2.7*H, Calcium Level 8.8, Ferritin 468H, Total Bilirubin 0.7, Aspartate Amino Transf (AST/SGOT) 27, Alanine Aminotransferase (ALT/SGPT) 35, Alkaline Phosphatase 97, Lactate Dehydrogenase 221, Total Creatine Kinase 599#H, Creatine Kinase MB 4.9H, Creatine Kinase MB Relative Index 0.82, C-Reactive Protein, Quantitative 9.91H, Total Protein 6.2L, Albumin 3.0L, Albumin/Globulin Ratio 0.9, Thyroid Stimulating Hormone (TSH) 0.386, Free Thyroxine Index 2.8, Thyroxine (T4) 7.7, Triiodothyronine (T3) Uptake 36 CBC/BMP Laboratory Tests 03/11/20 15:28 03/11/20 17:22 03/11/20 21:09 03/12/20 07:53 Microbiology Microbiology 03/11/20 Urine Culture, Received Pending 03/11/20 Respiratory Virus Panel (PCR) (DAISY) - Final, Complete 03/11/20 Blood Culture, Received Pending 03/11/20 Blood Culture, Received Pending TRICIA GREEN MD Mar 12, 2020 10:26
[2020-03-12 10:58] LABS: DIGOXIN LEVEL 0.6 NG/ML (0.5-2.0)
[2020-03-12] MEDS: HEPARIN DRIP 25,000 UNITS in IV 1 EA IV SCH (14:29)
--- NOTE | 2020-03-12 14:47 | REP ---
INDICATION: cool purple leg COMPARISON: None. TECHNIQUE: Real time linares scale and color Doppler evaluation of the right lower extremity arterial vasculature using linear high frequency transducer. FINDINGS: Linares scale and color images demonstrate severe atherosclerotic disease including findings to suggest proximal disease likely involving the iliac artery with monophasic essentially venous appearing arterial waveforms with little cardiac phasicity. Trickle flow is noted within the superficial femoral artery distally. Evaluation was significantly limited due to overlying wound dressings. Peak systolic velocities (cm/sec) Common femoral artery: Right 78 Profunda femoris: Right 32 SFA (proximal): Right 17 SFA (mid): Right 19 SFA (distal): Right 12 Popliteal artery: Right 18/23 MARIA LUISA (prox.): Right 12 Tibioperoneal trunk: Right - ASSISTANT HEALTH EDUCATOR (prox.): Right 7 ASSISTANT HEALTH EDUCATOR (distal): Right 4 MARIA LUISA (distal): Right - IMPRESSION: Severe atherosclerotic disease with findings to suggest significant upstream stenosis likely involving the more proximal iliac artery. <Electronically signed by Kojo Meyers > 03/12/20 1426
[2020-03-12] MEDS ORDERED: cefTRIAXone SOD 1 GM in D5W MINI-BAG PLUS 50 ML IV SCH (17:00)
[2020-03-12] MEDS: cefTRIAXone SOD 2 GM in D5W MINI-BAG PLUS 50 ML IV SCH (17:24)
[2020-03-12] MEDS: ACETAMINOPHEN TAB 650MG DOSE (2X325MG) PO PRN ×3 (18:10→23:29)
[2020-03-12] MEDS ORDERED: VANCOMYCIN HCL 1,000 MG, VIAL MATE ADAPTER 1 EACH in D5W 250 ML IV SCH (21:00)
[2020-03-12] MEDS ORDERED: HumaLOG INSULIN (NovoLOG) PER UNIT SC SCH (21:00)
[2020-03-13] VITALS (17 sets, daily range): BP systolic 103–134; BP diastolic 55–87
[2020-03-13 00:10] LABS: HEMATOCRIT 37.2 % (42.0-52.0); HEMOGLOBIN 12.5 g/dl (13.5-17.5)
[2020-03-13] MEDS: NS 1,000 ML IV SCH ×3 (00:46→16:20)
[2020-03-13] MEDS: IPRATROPIUM 0.5MG/ALBUTEROL 2.5MG INH SOL UD 3ML (DUONEB) NEB SCH ×4 (01:28→20:07)
[2020-03-13 05:00] LABS: HEMATOCRIT 38.8 % (42.0-52.0); HEMOGLOBIN 13.1 g/dl (13.5-17.5); MEAN CORPUSCULAR HEMOGLOBIN 31.7 pg (27.0-33.0); MEAN CORPUSCULAR HGB CONC 33.8 g/dl (32.0-36.5); MEAN CORPUSCULAR VOLUME 93.9 fl (80.0-96.0); PLATELET COUNT, AUTOMATED 157 10^3/uL (150-450); RED BLOOD COUNT 4.13 10^6/uL (4.30-6.10); WHITE BLOOD COUNT 18.3 10^3/uL (4.0-10.0)
[2020-03-13 05:22] LABS: ALBUMIN 2.6 GM/DL (3.2-5.2); ALT/SGPT 43 U/L (12-78); BILIRUBIN,TOTAL 0.9 MG/DL (0.2-1.0); BLOOD UREA NITROGEN 17 MG/DL (7-18); CALCIUM LEVEL 8.7 MG/DL (8.8-10.2); CARBON DIOXIDE LEVEL 27 MEQ/L (21-32); CHLORIDE LEVEL 98 MEQ/L (98-107); CREATININE FOR GFR 0.93 MG/DL (0.70-1.30); GLOMERULAR FILTRATION RATE > 60.0 (>42); GLUCOSE, FASTING 139 MG/DL (70-100); POTASSIUM SERUM 4.3 MEQ/L (3.5-5.1); SODIUM LEVEL 130 MEQ/L (136-145); TOTAL PROTEIN 6.4 GM/DL (6.4-8.2)
[2020-03-13] MEDS: ACETAMINOPHEN TAB 650MG DOSE (2X325MG) PO PRN ×2 (05:29→20:31)
[2020-03-13] MEDS: METOPROLOL TART 25 MG TABLET PO SCH ×4 (05:30→23:12)
[2020-03-13] MEDS ORDERED: NS 500 ML IV ONE (07:30)
[2020-03-13] MEDS: HumaLOG INSULIN (NovoLOG) PER UNIT SC SCH ×5 (09:12→20:04)
[2020-03-13] MEDS: predniSONE 20 MG TAB PO SCH (09:13)
[2020-03-13] MEDS: TAMSULOSIN 0.4 MG CAP PO SCH (09:13)
[2020-03-13] MEDS: PANTOPRAZOLE 40MG TAB (PROTONIX) PO SCH (09:14)
[2020-03-13] MEDS: VITAMIN D 1,000 INTERNATIONAL UNITS TABLET PO SCH (09:14)
[2020-03-13] MEDS: LACTOBACILLUS ACIDOPHILUS CAP (BACID) PO SCH ×3 (09:14→17:14)
[2020-03-13] MEDS: DIGOXIN 0.125 MG TAB PO SCH (09:14)
[2020-03-13] MEDS: ATORVASTATIN 20 MG TAB PO SCH (09:14)
--- NOTE | 2020-03-13 09:58 | IPNPDOC ---
Date Seen The patient was seen on 03/13/20. Progress Note SUBJECTIVE: Patient is seen and examined the bedside chart it's been reviewed. Patient continues to be febrile with elevated white count despite changing to vancomycin and continuing with gram-negative coverage with ceftriaxone. His A. fib remains uncontrolled despite increasing dose of metoprolol. He currently has no complaints. Denies fever, chills, chest pain, pressure, tightness, lighthea dedness, dizziness or palpitations. He has not been out of bed. OBJECTIVE: PHYSICAL EXAMINATION: VITAL SIGNS: SEE BELOW. GENERAL: Awake, alert, oriented to person, place and time. No respiratory dist ress HEENT: Moist mucous membranes, no JVD, thyromegaly or cervical lymphadenopathy. LUNGS: Diminished breath sounds. No wheezing or rales. . No use of respiratory accessory muscles. HEART: S1, S2, irregularly irregular. Tachycardic ABDOMEN:, Soft, nontender, nondistended, positive bowel sounds. No rebound or guarding no abdominal bruit EXTREMITIES: 2+ pitting edema to the sacrum. Chronic venous stasis changes bilaterally. Ecchymosis. Chronic venous ulcers noted in the right lower extremity. LABORATORY DATA: SEE BELOW. MICROBIOLOGY: SEE BELOW. IMAGING STUDIES: SEE BELOW ASSESSMENT: 70-year-old with past medical history significant for chronic A. fib, hypertension, staph epi UTI, diabetes, dyslipidemia, [id number] history of tobacco abuse, BPH, bilateral inguinal hernia repair and umbilical hernia repair, still actively smoking cigarettes presented to the emergency room with complaints of confusion was found to have urinary tract infection and A. fib with RVR. Sepsis secondary to urinary tract infection Urinary tract infection A. fib with RVR Diabetes Dyslipidemia. Tobacco abuse. Actively smoking. BPH. Hypertension. Dyslipidemia. Acute encephalopathy secondary to sepsis and A. fib with RVR. Chronic venous sufficiency. Chronic venous ulcers in the bilateral lower extremities. PLAN: Despite Adam and metoprolol. Patient remains with A. fib with RVR. Metoprolol is currently increased to every 6 hourly. Patient's digoxin level was 0.8 yesterday. Patient is broadly covered her Vanco ceftriaxone. We have discontinued the vancomycin due to MRSA being negative. Patient is not medically stable, not medically stable to be transferred to medical surgical floor at this time. He continues to require telemetry for rate control. We will continue to titrate patient's metoprolol due to low blood pressure. We have had to give him IV fluids to increase the blood pressure for rate control medications to work well. If needed. Patient may need amiodarone or more digoxin. VS, I&O, 24H, Fishbone Vital Signs/I&O Vital Signs Date Time Temp Pulse Resp B/P (MAP) Pulse Ox O2 Delivery O2 Flow Rate FiO2 03/13/20 09:14 121 03/13/20 08:00 100.9 22 123/84 (97) 93 Room Air 03/11/20 16:30 2.0 I&O- Last 24 Hours up to 6 AM 03/13/20 06:00 Intake Total 1940 ml Output Total 1245 ml Balance 695 ml Laboratory Data 24H LABS Laboratory Tests 2 03/12/20 14:08: Bedside Glucose (Misc Panel) 243H 03/12/20 17:14: Bedside Glucose (Misc Panel) 222H 03/12/20 17:38: Methicillin-Resist S.aureus DNA PCR NOT DETECTED 03/13/20 00:08: Bedside Glucose (Misc Panel) 144H 03/13/20 04:38: Nucleated Red Blood Cells % (auto) 0.0, Activated Partial Thromboplast Time 32.0, Anion Gap 5L, Glomerular Filtration Rate > 60.0, Calcium Level 8.7L, Total Bilirubin 0.9, Aspartate Amino Transf (AST/SGOT) 54H, Alanine Aminotransferase (ALT/SGPT) 43, Alkaline Phosphatase 87, Total Protein 6.4, Albumin 2.6L, Albumin/Globulin Ratio 0.7 03/13/20 08:17: Bedside Glucose (Misc Panel) 153H CBC/BMP Laboratory Tests 03/12/20 23:51 03/13/20 04:38 Microbiology Microbiology 03/11/20 Urine Culture, Received Pending 03/11/20 Respiratory Virus Panel (PCR) (DAISY) - Final, Complete 03/11/20 Blood Culture - Preliminary, Resulted No growth after 24 hours . All specim... 03/11/20 Blood Culture - Preliminary, Resulted No growth after 24 hours . All specim... TRICIA GREEN MD Mar 13, 2020 09:58
--- NOTE | 2020-03-13 10:10 | REP ---
INDICATION: SEPSIS R/O PNEUMONIA COMPARISON: None TECHNIQUE: Axial noncontrast images from the thoracic inlet to the upper abdomen with coronal and sagittal reformations. This CT examination was performed using the following dose reduction techniques: Automated exposure control, adjustment of mA and/or kv according to the patient's size, and use of iterative reconstruction technique. FINDINGS: Chronic emphysematous changes and age-related interstitial findings are noted. Very small subtle superimposed alveolar infiltrates are suggested in the right apex and posterior/medial left upper lobe. Mild right basilar atelectasis and small pleural reaction also noted. Tracheobronchial tree is patent. No significant adenopathy noted. No pneumothorax. Significant atherosclerotic changes to the thoracic aorta and coronary arteries noted without aortic aneurysm or cardiomegaly. No pericardial effusion. Musculoskeletal structures demonstrate age-related changes without acute osseous abnormality. IMPRESSION: 1. Small alveolar infiltrates at the right apex and left upper lobe as well as minimal right basilar atelectasis and small right pleural reaction. Findings are nonspecific and should be correlated clinically. Early pneumonia cannot be excluded. <Electronically signed by Kojo Meyers > 03/13/20 [id number]
--- NOTE | 2020-03-13 10:14 | REP ---
INDICATION: SEPSIS R/O PYELONEPHRITIS/PERINEPHRIC ABSCESS COMPARISON: None TECHNIQUE: Axial noncontrast images from the lung bases to the pubic symphysis with coronal and sagittal reformations. This CT examination was performed using the following dose reduction techniques: Automated exposure control, adjustment of mA and/or kv according to the patient's size, and use of iterative reconstruction technique. FINDINGS: Evaluation is limited due to significant motion artifact. Liver, spleen, pancreas, gallbladder, and bilateral adrenal glands are relatively normal for noncontrast evaluation. Bilateral perinephric stranding noted without hydronephrosis or nephrolithiasis. The enteric system is without obvious acute obstruction or inflammatory process. Colonic and sigmoid diverticula noted without acute diverticulitis. Normal appendix identified in the right lower quadrant. A thin wires identified extending via the anus into the rectum. Pelvis demonstrates Stewart catheter in partially collapsed bladder and essentially age-appropriate prostate/seminal vesicles. Incidental 1.2 cm right posterior bladder diverticulum noted. No ascites. No free air. No significant adenopathy. Atherosclerotic changes to the aorta and vasculature without aneurysm. Musculoskeletal structures demonstrate age-related degenerative changes without acute osseous abnormality. IMPRESSION: 1. Bilateral perinephric stranding may represent chronic change although correlation with urinalysis is recommended to exclude the possibility of pyelonephritis. 2. Chronic nonacute findings as described above. <Electronically signed by Kojo Meyers > 03/13/20 1163
[2020-03-13] MEDS: cefTRIAXone SOD 2 GM in D5W MINI-BAG PLUS 50 ML IV SCH (16:19)
[2020-03-13] MEDS: NICOTINE 14 MG/24 HR TRANSDERMAL TD SCH (20:20)
[2020-03-14] VITALS (14 sets, daily range): BP systolic 107–141; BP diastolic 65–93
[2020-03-14] MEDS: IPRATROPIUM 0.5MG/ALBUTEROL 2.5MG INH SOL UD 3ML (DUONEB) NEB SCH ×4 (02:02→19:28)
[2020-03-14] MEDS: NS 1,000 ML IV SCH (02:43)
[2020-03-14 05:23] LABS: BASO % 0.2 % (0.0-1.0); EOS % 0.2 % (0.0-3.0); HEMATOCRIT 37.7 % (42.0-52.0); HEMOGLOBIN 12.3 g/dl (13.5-17.5); LYMPH # 1.3 10^3/uL (1.5-5.0); LYMPH % 10.5 % (24.0-44.0); MEAN CORPUSCULAR HEMOGLOBIN 30.9 pg (27.0-33.0); MEAN CORPUSCULAR HGB CONC 32.6 g/dl (32.0-36.5); MEAN CORPUSCULAR VOLUME 94.7 fl (80.0-96.0); MONO % 7.4 % (0.0-5.0); NEUTROPHILS # 10.2 10^3/uL (1.5-8.5); NEUTROPHILS % 79.5 % (36.0-66.0); PLATELET COUNT, AUTOMATED 142 10^3/uL (150-450); RED BLOOD COUNT 3.98 10^6/uL (4.30-6.10); WHITE BLOOD COUNT 12.8 10^3/uL (4.0-10.0)
[2020-03-14 05:44] LABS: BLOOD UREA NITROGEN 10 MG/DL (7-18); CALCIUM LEVEL 8.5 MG/DL (8.8-10.2); CARBON DIOXIDE LEVEL 29 MEQ/L (21-32); CHLORIDE LEVEL 104 MEQ/L (98-107); CREATININE FOR GFR 0.84 MG/DL (0.70-1.30); GLOMERULAR FILTRATION RATE > 60.0 (>42); GLUCOSE, FASTING 137 MG/DL (70-100); POTASSIUM SERUM 3.8 MEQ/L (3.5-5.1); SODIUM LEVEL 137 MEQ/L (136-145)
[2020-03-14] MEDS: ACETAMINOPHEN TAB 650MG DOSE (2X325MG) PO PRN ×2 (05:52→20:22)
[2020-03-14] MEDS: METOPROLOL TART 25 MG TABLET PO SCH (05:53)
[2020-03-14] MEDS ORDERED: AMIODARONE HCL 150 MG in IV 1 EA IV ONE (07:15)
[2020-03-14] MEDS: HumaLOG INSULIN (NovoLOG) PER UNIT SC SCH ×4 (08:04→20:22)
[2020-03-14] MEDS: ATORVASTATIN 20 MG TAB PO SCH (08:05)
[2020-03-14] MEDS: TAMSULOSIN 0.4 MG CAP PO SCH (08:05)
[2020-03-14] MEDS: VITAMIN D 1,000 INTERNATIONAL UNITS TABLET PO SCH (08:05)
[2020-03-14] MEDS: LACTOBACILLUS ACIDOPHILUS CAP (BACID) PO SCH ×3 (08:05→18:09)
[2020-03-14] MEDS: PANTOPRAZOLE 40MG TAB (PROTONIX) PO SCH (08:05)
[2020-03-14] MEDS: predniSONE 20 MG TAB PO SCH (08:05)
[2020-03-14] MEDS ORDERED: AMIODARONE HCL 360 MG in IV 1 EA IV SCH (08:30)
[2020-03-14] MEDS: APIXABAN 5 MG TAB (ELIQUIS) PO SCH ×2 (09:14→20:23)
--- NOTE | 2020-03-14 10:27 | IPNPDOC ---
Date Seen The patient was seen on 03/14/20. Progress Note SUBJECTIVE: Patient was seen and examined the bedside chart it's been reviewed. Despite 300 mg of metoprolol and digoxin. Patient's heart rate remains in atrial fibrillation with rapid ventricular rate of 05/09/1970 at the bedside with blood pressure maintained at 110-120. Patient has slight dyspnea today, even with he is resting in bed, but denies any chest pressure, tightness, CT chest, abdomen and pelvis yesterday was obtained due to persistent leukocytosis and elevated white count. Sepsis with only documented UTI as reason for patient's fevers. CT chest shows possible early infiltrate versus pulmonary edema. Patient denies any PND or orthopnea. Was able to lay down about 2 pillows without any trouble breathing this morning. Patient was started on meropenem for healthcare associated pneumonia for broader coverage for Pseudomonas. His MRSA screen was negative. Therefore, vancomycin was discontinued. He is continued on doxycycline for atypical coverage as well as for staph epidermidis urinary tract infection. Patient denies any palpitations, lightheadedness or dizziness, but has not been ambulating at all. He complains of bilateral lower extremity discomfort secondary to persistent lower extremity edema. Patient was initially given IV fluids in order to increase the blood pressure enough so that we can obtain rate control with metoprolol with increasing doses of beta blockade. OBJECTIVE: PHYSICAL EXAMINATION: VITAL SIGNS: SEE BELOW. GENERAL: Awake, alert, oriented to person, place and time. Mild respiratory distress. No use of respiratory accessory muscle 6-7 word conversational dyspnea HEENT: Moist mucous membranes, slightly elevated JVD, thyromegaly or cervical lymphadenopathy. LUNGS: Diminished breath sounds with bibasilar crackles. No rhonchi HEART: S1, S2, irregularly irregular. Tachycardic ABDOMEN:, Soft, nontender, nondistended, positive bowel sounds. No rebound or guarding no abdominal bruit EXTREMITIES: 2+ pitting edema to the sacrum. Chronic venous stasis changes bilaterally. Ecchymosis. Chronic venous ulcers noted in the right lower extremity. LABORATORY DATA: SEE BELOW. MICROBIOLOGY: SEE BELOW. IMAGING STUDIES: SEE BELOW ASSESSMENT: 70-year-old with past medical history significant for chronic A. fib, hypertension, staph epi UTI, diabetes, dyslipidemia, [id number] history of tobacco abuse, BPH, bilateral inguinal hernia repair and umbilical hernia repair, still actively smoking cigarettes presented to the emergency room with complaints of confusion was found to have urinary tract infection and A. fib with RVR. Sepsis secondary to urinary tract infection and possible hospital-acquired pneumonia Urinary tract infection with staph epidermidis Hospital-acquired pneumonia A. fib with RVR, uncontrolled New onset diastolic congestive heart failure secondary to fluid overload with preserved systolic function, exacerbated by infection in the urinary tract and possible pneumonia Diabetes Dyslipidemia. Tobacco abuse. Actively smoking. BPH. Hypertension. Dyslipidemia. Acute encephalopathy secondary to sepsis and A. fib with RVR. Chronic venous sufficiency. Chronic venous ulcers in the bilateral lower extremities. PLAN: Patient did not respond well to DIGOXIN and an increasing doses of metoprolol at 300 mg daily total dose with still uncontrolled rate of 160-170 at the bedside without any hypotension. Patient's ECG is normal. He will be started on amiodarone per protocol for better control. Patient was found to have possible early pneumonia and CT chest and with recurrent fevers despite decrease in white count. Patient's antibiotics will be broadly increased to meropenem, renal dosing as well as doxycycline for UTI as well as coverage for atypical bacteria causing pneumonia. We'll obtain urine legionella antigen and strep pneumonia antigen. Sputum culture and further titrate antibiotics accordingly. Once cul ture results are obtained. Since the patient was MRSA negative. His vancomycin has been discontinued due to increasing effusions and infiltrates on CT of the chest. IV fluids have been discontinued. If he continues to have worsening distress. Patient will be given intravenous Lasix, providing that the blood pressure remains stable. Patient is now medically stable to be transferred from telemetry unit. Therefore, he will remain here today until patient's rate is controlled and respiratory status has improved. Monitor patient's electrolytes as well as serial basic metabolic panel in order to monitor for elevated sodium and elevated creatinine. VS, I&O, 24H, Fishbone Vital Signs/I&O Vital Signs Date Time Temp Pulse Resp B/P (MAP) Pulse Ox O2 Delivery O2 Flow Rate FiO2 03/14/20 10:00 99.7 114 24 121/90 (100) 97 Room Air 03/11/20 16:30 2.0 I&O- Last 24 Hours up to 6 AM 03/14/20 06:00 Intake Total 4070 ml Output Total 2715 ml Balance 1355 ml Laboratory Data 24H LABS Laboratory Tests 2 03/13/20 11:33: Bedside Glucose (Misc Panel) 226H 03/13/20 17:10: Bedside Glucose (Misc Panel) 166H 03/13/20 20:01: Bedside Glucose (Misc Panel) 190H 03/14/20 05:03: Immature Granulocyte % (Auto) 2.2, Neutrophils (%) (Auto) 79.5H, Lymphocytes (%) (Auto) 10.5L, Monocytes (%) (Auto) 7.4H, Eosinophils (%) (Auto) 0.2, Basophils (%) (Auto) 0.2, Neutrophils # (Auto) 10.2H, Lymphocytes # (Auto) 1.3L, Monocytes # (Auto) 1.0H, Eosinophils # (Auto) 0.0, Basophils # (Auto) 0.0, Nucleated Red Blood Cells % (auto) 0.0, Anion Gap 4L, Glomerular Filtration Rate > 60.0, Calcium Level 8.5L CBC/BMP Laboratory Tests 03/14/20 05:03 Microbiology Microbiology 03/11/20 Urine Culture - Final, Complete Staphylococcus Epidermidis 03/11/20 Respiratory Virus Panel (PCR) (DAISY) - Final, Complete 03/11/20 Blood Culture - Preliminary, Resulted No Growth after 48 hours. All Specime... 03/11/20 Blood Culture - Preliminary, Resulted No Growth after 48 hours. All Specime... TRICIA GREEN MD Mar 14, 2020 10:27
[2020-03-14] MEDS ORDERED: FUROSEMIDE 40MG/4ML VIAL (J1940) IV ONE (10:30)
[2020-03-14] MEDS: MEROPENEM INJ 1 GM in IV 1 EA IV SCH ×2 (11:05→18:09)
[2020-03-14] MEDS: DOXYCYCLINE HYCLATE 100 MG in D5W MINI-BAG PLUS 100 ML IV SCH (12:14)
[2020-03-14] MEDS ORDERED: METOPROLOL 5 MG/5 ML VIAL IV STA (14:24)
[2020-03-14] MEDS: atenoloL 50 MG TAB PO SCH ×2 (15:16→20:23)
[2020-03-14] MEDS: DIGOXIN INJ 0.5 MG/2 ML AMP (J1160) IV SCH ×2 (15:18→20:22)
[2020-03-14] MEDS: AMIODARONE HCL 360 MG in IV 1 EA IV SCH (15:22)
[2020-03-14] MEDS: NICOTINE 14 MG/24 HR TRANSDERMAL TD SCH (20:24)
[2020-03-15] VITALS (10 sets, daily range): BP systolic 118–145; BP diastolic 65–86
[2020-03-15] MEDS: DOXYCYCLINE HYCLATE 100 MG in D5W MINI-BAG PLUS 100 ML IV SCH ×2 (00:58→13:18)
[2020-03-15] MEDS: IPRATROPIUM 0.5MG/ALBUTEROL 2.5MG INH SOL UD 3ML (DUONEB) NEB SCH ×2 (02:00→07:20)
[2020-03-15] MEDS: DIGOXIN INJ 0.5 MG/2 ML AMP (J1160) IV SCH (02:38)
[2020-03-15] MEDS: AMIODARONE HCL 360 MG in IV 1 EA IV SCH (02:41)
[2020-03-15] MEDS: MEROPENEM INJ 1 GM in IV 1 EA IV SCH ×3 (02:41→20:06)
[2020-03-15 05:28] LABS: BASO % 0.3 % (0.0-1.0); EOS # 0.2 10^3/uL (0.0-0.5); EOS % 1.3 % (0.0-3.0); HEMATOCRIT 37.6 % (42.0-52.0); HEMOGLOBIN 12.5 g/dl (13.5-17.5); LYMPH # 1.6 10^3/uL (1.5-5.0); LYMPH % 13.9 % (24.0-44.0); MEAN CORPUSCULAR HEMOGLOBIN 31.2 pg (27.0-33.0); MEAN CORPUSCULAR HGB CONC 33.2 g/dl (32.0-36.5); MEAN CORPUSCULAR VOLUME 93.8 fl (80.0-96.0); MONO # 0.9 10^3/uL (0.0-0.8); MONO % 7.4 % (0.0-5.0); NEUTROPHILS # 8.7 10^3/uL (1.5-8.5); NEUTROPHILS % 76.4 % (36.0-66.0); PLATELET COUNT, AUTOMATED 168 10^3/uL (150-450); RED BLOOD COUNT 4.01 10^6/uL (4.30-6.10); WHITE BLOOD COUNT 11.4 10^3/uL (4.0-10.0)
[2020-03-15 06:55] LABS: BLOOD UREA NITROGEN 17 MG/DL (7-18); CALCIUM LEVEL 8.6 MG/DL (8.8-10.2); CARBON DIOXIDE LEVEL 29 MEQ/L (21-32); CHLORIDE LEVEL 103 MEQ/L (98-107); CREATININE FOR GFR 0.82 MG/DL (0.70-1.30); DIGOXIN LEVEL 1.1 NG/ML (0.5-2.0); GLOMERULAR FILTRATION RATE > 60.0 (>42); GLUCOSE, FASTING 124 MG/DL (70-100); POTASSIUM SERUM 3.6 MEQ/L (3.5-5.1); SODIUM LEVEL 138 MEQ/L (136-145)
[2020-03-15] MEDS: LACTOBACILLUS ACIDOPHILUS CAP (BACID) PO SCH ×3 (07:38→18:16)
[2020-03-15] MEDS: ATORVASTATIN 20 MG TAB PO SCH (07:38)
[2020-03-15] MEDS: HumaLOG INSULIN (NovoLOG) PER UNIT SC SCH ×4 (07:38→21:00)
[2020-03-15] MEDS: VITAMIN D 1,000 INTERNATIONAL UNITS TABLET PO SCH (07:39)
[2020-03-15] MEDS: PANTOPRAZOLE 40MG TAB (PROTONIX) PO SCH (07:39)
[2020-03-15] MEDS: TAMSULOSIN 0.4 MG CAP PO SCH (07:39)
[2020-03-15] MEDS: APIXABAN 5 MG TAB (ELIQUIS) PO SCH ×2 (07:39→20:06)
[2020-03-15] MEDS: atenoloL 50 MG TAB PO SCH ×2 (07:42→20:10)
[2020-03-15] MEDS: predniSONE 20 MG TAB PO SCH (07:42)
[2020-03-15] MEDS ORDERED: FUROSEMIDE 40MG/4ML VIAL (J1940) IV ONE (10:00)
[2020-03-15] MEDS ORDERED: DIGOXIN 0.125 MG TAB PO ONE (10:30)
--- NOTE | 2020-03-15 10:53 | IPNPDOC ---
Date Seen The patient was seen on 03/15/20. Progress Note SUBJECTIVE: Overnight. Patient's heart rate has been better controlled now ranging from 70- 90 after amiodarone drip. He is on atenolol 100 mg twice a day and digoxin level has been reviewed. He denies any palpitations, shortness of breath, chest pain. He admits to slight cough without chills or fever. Chest x-ray shows possible infiltrates bilaterally. Patient was started on antibiotics. Urine culture showed staph epidermidis sensitive to doxycycline. Patient has no nausea, vomiting. He has not ambulated outside his room. He still complains of bilateral lower extremity discomfort with chronic lower extremity edema and chronic venous stasis ulcers on the right leg. OBJECTIVE: PHYSICAL EXAMINATION: VITAL SIGNS: SEE BELOW. GENERAL: Sitting at 90 in bed, answering questions appropriately. No use of respiratory accessory muscles HEENT: Moist mucous membranes, slightly elevated JVD, thyromegaly or cervical lymphadenopathy. LUNGS: Diminished breath sounds with bibasilar crackles. No rhonchi. Air entry is equal bilaterally HEART: S1, S2, irregularly irregular. Tachycardic ABDOMEN:, Soft, nontender, nondistended, positive bowel sounds. No rebound or guarding no abdominal bruit EXTREMITIES: 2+ pitting edema to the sacrum. Chronic venous stasis changes bilaterally. Ecchymosis. Chronic venous ulcers noted in the right lower extremity. LABORATORY DATA: SEE BELOW. MICROBIOLOGY: SEE BELOW. IMAGING STUDIES: SEE BELOW ASSESSMENT: 70-year-old with past medical history significant for chronic A. fib, hypertension, staph epi UTI, diabetes, dyslipidemia, [id number] history of tobacco abuse, BPH, bilateral inguinal hernia repair and umbilical hernia repair, still actively smoking cigarettes presented to the emergency room with complaints of confusion was found to have urinary tract infection and A. fib with RVR. Sepsis secondary to urinary tract infection and possible hospital-acquired pneumonia Urinary tract infection with staph epidermidis sensitive to doxycycline Hospital-acquired pneumonia A. fib with RVR, controlled New onset diastolic congestive heart failure secondary to fluid overload with preserved systolic function, exacerbated by infection in the urinary tract and possible pneumonia Diabetes Dyslipidemia. Tobacco abuse. Actively smoking. BPH. Hypertension. Dyslipidemia. Acute encephalopathy secondary to sepsis and A. fib with RVR. Chronic venous sufficiency. Chronic venous ulcers in the bilateral lower extremities. PLAN: Despite a total of 300 mg of metoprolol and digoxin. Patient's rate was not controlled and he was started on intravenous amiodarone drip yesterday with significant improvement. Per Dr. Lama. Patient may be continued now just on atenolol 100 twice a day and his home dose of digoxin 125 g daily and not to continue on amiodarone orally. He is to follow with Dr. Flood as outpatient after hospital discharge due to bilateral infiltrates and recurrent fevers. Patient was started on intravenous meropenem and doxycycline for staph epidermidis UTI as well as for atypical coverage for pneumonia. Patient's white count and fevers have improved since antibiotic coverage was broadened. He was MRSA negative and vancomycin has been discontinued. Patient continues to have 2+ to 3+ edema in the lower extremities with complains of legs feeling heavy. Therefore, if the blood pressure permits. We will continue with Lasix diuresis. Patient may be transferred to medical surgical floor, but needs to be continued on telemetry due to A. fib with RVR with medications being titrated currently. Physical therapy will be consulted. VS, I&O, 24H, [facility] Vital Signs/I&O Vital Signs Date Time Temp Pulse Resp B/P (MAP) Pulse Ox O2 Delivery O2 Flow Rate FiO2 03/15/20 10:00 70 23 141/77 (98) 97 Room Air 03/15/20 08:00 99.5 03/11/20 16:30 2.0 I&O- Last 24 Hours up to 6 AM 03/15/20 06:00 Intake Total 3504 ml Output Total 5520 ml Balance -2016 ml Laboratory Data 24H LABS Laboratory Tests 2 03/14/20 11:19: 03/14/20 11:48: Bedside Glucose (Misc Panel) 232H 03/14/20 16:44: Bedside Glucose (Misc Panel) 260H 03/14/20 20:04: Bedside Glucose (Misc Panel) 256H 03/15/20 05:18: Immature Granulocyte % (Auto) 0.7, Neutrophils (%) (Auto) 76.4H, Lymphocytes (%) (Auto) 13.9L, Monocytes (%) (Auto) 7.4H, Eosinophils (%) (Auto) 1.3, Basophils (%) (Auto) 0.3, Neutrophils # (Auto) 8.7H, Lymphocytes # (Auto) 1.6, Monocytes # (Auto) 0.9H, Eosinophils # (Auto) 0.2, Basophils # (Auto) 0.0, Nucleated Red Blood Cells % (auto) 0.0, Anion Gap 6L, Glomerular Filtration Rate > 60.0, Calcium Level 8.6L, Digoxin Level 1.1 03/15/20 07:25: Bedside Glucose (Misc Panel) 138H CBC/BMP Laboratory Tests 03/15/20 05:18 Microbiology Microbiology 03/14/20 Gram Stain - Final, Resulted 03/14/20 Sputum Culture, Resulted Pending 03/11/20 Urine Culture - Final, Complete Staphylococcus Epidermidis 03/11/20 Respiratory Virus Panel (PCR) (DAISY) - Final, Complete 03/11/20 Blood Culture - Preliminary, Resulted No Growth after 72 hours. All specime... 03/11/20 Blood Culture - Preliminary, Resulted No Growth after 72 hours. All specime... TRICIA GREEN MD Mar 15, 2020 10:53
--- NOTE | 2020-03-15 10:54 | REP ---
INDICATION: cough r/o chf COMPARISON: 03/11/2020 TECHNIQUE: PA and lateral. FINDINGS: The mediastinum and cardiac silhouette are normal. Lung guerra demonstrate stable chronic interstitial changes. There is subtle right basilar atelectasis and small right pleural reaction with blunting of the costophrenic angle on both frontal and lateral radiographs similar to the findings on recent CT dated 03/13/2020. No obvious significant focal consolidation. No pneumothorax. Skeletal structures again demonstrate age-related osteopenia and degenerative changes. IMPRESSION: 1. Small right basilar atelectasis and trace right pleural reaction similar to findings on CT dated 03/13/2020. 2. No significant area of consolidation otherwise noted. 3. No evidence for CHF. <Electronically signed by Kojo Meyers > 03/15/20 [id number]
[2020-03-15] MEDS ORDERED: AMIODARONE 200 MG TAB (PACERONE) PO SCH (12:00)
[2020-03-15] MEDS ORDERED: VANCOMYCIN HCL 1,000 MG, VIAL MATE ADAPTER 1 EACH in D5W 250 ML IV ONE ×2 (14:00→18:00)
[2020-03-15] MEDS: NICOTINE 14 MG/24 HR TRANSDERMAL TD SCH (20:07)
[2020-03-16] MEDS: DOXYCYCLINE HYCLATE 100 MG in D5W MINI-BAG PLUS 100 ML IV SCH ×2 (01:03→13:51)
[2020-03-16] MEDS: MEROPENEM INJ 1 GM in IV 1 EA IV SCH (02:35)
[2020-03-16 03:51] VITALS: O2SAT 95
[2020-03-16 06:00] VITALS: BP 130/89
[2020-03-16] MEDS ORDERED: VANCOMYCIN HCL 750 MG, VIAL MATE ADAPTER 1 EACH in D5W 250 ML IV SCH ×2 (06:00→07:00)
[2020-03-16 06:28] LABS: BASO # 0.1 10^3/uL (0.0-0.2); BASO % 0.6 % (0.0-1.0); EOS # 0.2 10^3/uL (0.0-0.5); HEMATOCRIT 37.7 % (42.0-52.0); HEMOGLOBIN 12.3 g/dl (13.5-17.5); MEAN CORPUSCULAR HEMOGLOBIN 30.5 pg (27.0-33.0); MEAN CORPUSCULAR HGB CONC 32.6 g/dl (32.0-36.5); MEAN CORPUSCULAR VOLUME 93.5 fl (80.0-96.0); MONO # 1.1 10^3/uL (0.0-0.8); MONO % 9.5 % (0.0-5.0); NEUTROPHILS # 7.9 10^3/uL (1.5-8.5); NEUTROPHILS % 68.4 % (36.0-66.0); PLATELET COUNT, AUTOMATED 189 10^3/uL (150-450); RED BLOOD COUNT 4.03 10^6/uL (4.30-6.10); WHITE BLOOD COUNT 11.6 10^3/uL (4.0-10.0)
[2020-03-16 06:55] LABS: BLOOD UREA NITROGEN 14 MG/DL (7-18); CALCIUM LEVEL 8.7 MG/DL (8.8-10.2); CARBON DIOXIDE LEVEL 30 MEQ/L (21-32); CHLORIDE LEVEL 101 MEQ/L (98-107); CREATININE FOR GFR 0.72 MG/DL (0.70-1.30); GLOMERULAR FILTRATION RATE > 60.0 (>42); GLUCOSE, FASTING 131 MG/DL (70-100); POTASSIUM SERUM 3.4 MEQ/L (3.5-5.1); SODIUM LEVEL 137 MEQ/L (136-145)
[2020-03-16] MEDS: HumaLOG INSULIN (NovoLOG) PER UNIT SC SCH ×4 (08:38→21:03)
[2020-03-16] MEDS: TAMSULOSIN 0.4 MG CAP PO SCH (08:39)
[2020-03-16] MEDS: ATORVASTATIN 20 MG TAB PO SCH (08:39)
[2020-03-16] MEDS: PANTOPRAZOLE 40MG TAB (PROTONIX) PO SCH (08:39)
[2020-03-16] MEDS: predniSONE 20 MG TAB PO SCH (08:39)
[2020-03-16] MEDS: APIXABAN 5 MG TAB (ELIQUIS) PO SCH ×2 (08:40→21:02)
[2020-03-16] MEDS: DIGOXIN 0.125 MG TAB PO SCH (08:40)
[2020-03-16] MEDS: VITAMIN D 1,000 INTERNATIONAL UNITS TABLET PO SCH (08:40)
[2020-03-16] MEDS: LACTOBACILLUS ACIDOPHILUS CAP (BACID) PO SCH ×3 (08:40→17:14)
[2020-03-16] MEDS: atenoloL 50 MG TAB PO SCH ×2 (08:41→21:02)
--- NOTE | 2020-03-16 09:48 | IPNPDOC ---
Date Seen The patient was seen on 03/16/20. Progress Note SUBJECTIVE: no sob, palpitations, fever, or chills. denies cough. OBJECTIVE: PHYSICAL EXAMINATION: VITAL SIGNS: SEE BELOW. GENERAL: no distress HEENT: Moist mucous membranes, LUNGS: Diminished breath sounds No rhonchi. HEART: S1, S2, irregularly irregular. ABDOMEN:, Soft, nontender, nondistended, positive bowel sounds. EXTREMITIES: 2+ pitting edema to the sacrum. Chronic venous stasis changes bilaterally. Ecchymosis. Chronic venous ulcers noted in the right lower extremity. LABORATORY DATA: SEE BELOW. MICROBIOLOGY: SEE BELOW. IMAGING STUDIES: SEE BELOW ASSESSMENT: 70-year-old with past medical history significant for chronic A. fib, hypertension, staph epi UTI, diabetes, dyslipidemia, [id number] history of tobacco abuse, BPH, bilateral inguinal hernia repair and umbilical hernia repair, still actively smoking cigarettes presented to the emergency room with complaints of confusion was found to have urinary tract infection and A. fib with RVR. Sepsis secondary to urinary tract infection Urinary tract infection A. fib with RVR, controlled New onset diastolic congestive heart failure secondary to fluid overload with preserved systolic function, exacerbated by infection in the urinary tract Diabetes Dyslipidemia. Tobacco abuse. Actively smoking. BPH. Hypertension. Dyslipidemia. Acute encephalopathy secondary to sepsis and A. fib with RVR. Chronic venous sufficiency. Chronic venous ulcers in the bilateral lower extremities. PLAN: Per Dr. Lama continue atenolol and digoxin. dc vanco and cefepime since repeat cxr-cleared infiltrates and no consolidation. continue doxy for urine. rate controlled and continue net negative diuresis. VS, I&O, 24H, [facility] Vital Signs/I&O Vital Signs Date Time Temp Pulse Resp B/P (MAP) Pulse Ox O2 Delivery O2 Flow Rate FiO2 03/16/20 08:41 81 138/75 03/16/20 06:00 98.1 17 95 03/16/20 03:51 Room Air 03/11/20 16:30 2.0 l I&O- Last 24 Hours up to 6 AM 03/16/20 06:00 Intake Total 1871 ml Output Total 3355 ml Balance -1484 ml Laboratory Data 24H LABS Laboratory Tests 2 03/15/20 11:35: Bedside Glucose (Misc Panel) 263H 03/15/20 17:16: Bedside Glucose (Misc Panel) 239H 03/15/20 21:45: Bedside Glucose (Misc Panel) 241H 03/16/20 05:44: Immature Granulocyte % (Auto) 2.5, Neutrophils (%) (Auto) 68.4H, Lymphocytes (%) (Auto) 17.0L, Monocytes (%) (Auto) 9.5H, Eosinophils (%) (Auto) 2.0, Basophils (%) (Auto) 0.6, Neutrophils # (Auto) 7.9, Lymphocytes # (Auto) 2.0, Monocytes # (Auto) 1.1H, Eosinophils # (Auto) 0.2, Basophils # (Auto) 0.1, Nucleated Red Blood Cells % (auto) 0.0, Anion Gap 6L, Glomerular Filtration Rate > 60.0, Calcium Level 8.7L CBC/BMP Laboratory Tests 03/16/20 05:44 Microbiology Microbiology 03/14/20 Gram Stain - Final, Resulted 03/14/20 Sputum Culture - Preliminary, Resulted Yeast Like Organism 03/11/20 Urine Culture - Final, Complete Staphylococcus Epidermidis 03/11/20 Respiratory Virus Panel (PCR) (DAISY) - Final, Complete 03/11/20 Blood Culture - Preliminary, Resulted No Growth after 72 hours. All specime... 03/11/20 Blood Culture - Preliminary, Resulted No Growth after 72 hours. All specime... TRICIA GREEN MD Mar 16, 2020 09:48
[2020-03-16] MEDS: POTASSIUM CHLORIDE 10 MEQ SR TABLET PO SCH ×2 (10:28→21:01)
[2020-03-16] MEDS ORDERED: metOLazone 5 MG TAB PO ONE (10:30)
[2020-03-16] MEDS: FUROSEMIDE 40MG/4ML VIAL (J1940) IV SCH ×3 (11:03→23:20)
[2020-03-16] MEDS ORDERED: MAG SULF 1GM/100ML (MAG RUN) 1 GM in IV 1 EA IV ONE (13:00)
[2020-03-16] MEDS ORDERED: POTASSIUM CHLORIDE 10 MEQ SR TABLET PO ONE (13:00)
[2020-03-16 14:00] VITALS: BP 142/84
[2020-03-16] MEDS: NICOTINE 14 MG/24 HR TRANSDERMAL TD SCH (21:02)
[2020-03-16 22:00] VITALS: BP 117/83
[2020-03-16 23:15] VITALS: BP 136/84
[2020-03-17] VITALS (7 sets, daily range): BP systolic 105–137; BP diastolic 61–88; O2SAT 92–94
[2020-03-17] MEDS: DOXYCYCLINE HYCLATE 100 MG in D5W MINI-BAG PLUS 100 ML IV SCH ×2 (00:56→13:15)
[2020-03-17] MEDS: FUROSEMIDE 40MG/4ML VIAL (J1940) IV SCH ×4 (05:11→23:59)
[2020-03-17 05:55] LABS: HEMATOCRIT 45.1 % (42.0-52.0); MEAN CORPUSCULAR HEMOGLOBIN 30.8 pg (27.0-33.0); MEAN CORPUSCULAR HGB CONC 33.3 g/dl (32.0-36.5); MEAN CORPUSCULAR VOLUME 92.6 fl (80.0-96.0); PLATELET COUNT, AUTOMATED 243 10^3/uL (150-450); RED BLOOD COUNT 4.87 10^6/uL (4.30-6.10); WHITE BLOOD COUNT 15.9 10^3/uL (4.0-10.0)
[2020-03-17 06:17] LABS: BLOOD UREA NITROGEN 15 MG/DL (7-18); CALCIUM LEVEL 9.8 MG/DL (8.8-10.2); CARBON DIOXIDE LEVEL 38 MEQ/L (21-32); CHLORIDE LEVEL 90 MEQ/L (98-107); CREATININE FOR GFR 0.99 MG/DL (0.70-1.30); GLOMERULAR FILTRATION RATE > 60.0 (>42); GLUCOSE, FASTING 144 MG/DL (70-100); POTASSIUM SERUM 3.6 MEQ/L (3.5-5.1); SODIUM LEVEL 136 MEQ/L (136-145)
[2020-03-17 06:37] LABS: ATYPICAL LYMPH 1 % (0-5); EOSINOPHILS 4 % (0-3); LYMPHOCYTES 24 % (16-44); METAMYELOCYTES 3 % (0-0); MONOCYTES 8 % (0-5); MYELOCYTES 1 % (0-0); NEUTROPHILS 57 % (28-66)
[2020-03-17 06:38] LABS: PLATELET ESTIMATE NORMAL (NORMAL)
[2020-03-17 06:39] LABS: ANISOCYTOSIS 1+
[2020-03-17] MEDS: HumaLOG INSULIN (NovoLOG) PER UNIT SC SCH ×4 (08:39→21:07)
[2020-03-17] MEDS: predniSONE 20 MG TAB PO SCH (08:40)
[2020-03-17] MEDS: POTASSIUM CHLORIDE 10 MEQ SR TABLET PO SCH ×3 (08:40→21:06)
[2020-03-17] MEDS: TAMSULOSIN 0.4 MG CAP PO SCH (08:40)
[2020-03-17] MEDS: atenoloL 50 MG TAB PO SCH ×2 (08:40→21:06)
[2020-03-17] MEDS: DIGOXIN 0.125 MG TAB PO SCH (08:41)
[2020-03-17] MEDS: PANTOPRAZOLE 40MG TAB (PROTONIX) PO SCH (08:41)
[2020-03-17] MEDS: VITAMIN D 1,000 INTERNATIONAL UNITS TABLET PO SCH (08:41)
[2020-03-17] MEDS: ATORVASTATIN 20 MG TAB PO SCH (08:41)
[2020-03-17] MEDS: LACTOBACILLUS ACIDOPHILUS CAP (BACID) PO SCH ×3 (08:41→18:02)
[2020-03-17] MEDS: APIXABAN 5 MG TAB (ELIQUIS) PO SCH ×2 (08:41→21:05)
--- NOTE | 2020-03-17 12:32 | IPNPDOC ---
Date Seen The patient was seen on 03/17/20. Progress Note SUBJECTIVE: feeling better and wants to go home soon. no fever chills. no sob. no james. denies cp, pressure, lightheadedness, or dizziness. OBJECTIVE: PHYSICAL EXAMINATION: VITAL SIGNS: SEE BELOW. GENERAL: no distress sitting on chair at bedside. no use of respiratory acc mm. HEENT: Moist mucous membranes, no jvd LUNGS: Diminished breath sounds No rhonchi. HEART: S1, S2, irregularly irregular. ABDOMEN:, Soft, nontender, nondistended, positive bowel sounds. EXTREMITIES: 1+ pitting edema to the sacrum. Chronic venous stasis changes bilaterally. Ecchymosis. Chronic venous ulcers noted in the right lower extremity. LABORATORY DATA: SEE BELOW. MICROBIOLOGY: SEE BELOW. IMAGING STUDIES: SEE BELOW ASSESSMENT: 70-year-old with past medical history significant for chronic A. fib, hypertension, staph epi UTI, diabetes, dyslipidemia, [id number] history of tobacco abuse, BPH, bilateral inguinal hernia repair and umbilical hernia repair, still actively smoking cigarettes presented to the emergency room with complaints of confusion was found to have urinary tract infection and A. fib with RVR. Sepsis secondary to urinary tract infection Urinary tract infection A. fib with RVR, controlled New onset diastolic congestive heart failure secondary to fluid overload with preserved systolic function, exacerbated by infection in the urinary tract Diabetes Dyslipidemia. Tobacco abuse. Actively smoking. BPH. Hypertension. Dyslipidemia. Acute encephalopathy secondary to sepsis and A. fib with RVR. Chronic venous sufficiency. Chronic venous ulcers in the bilateral lower extremities. PLAN: doing well with diuresis. no orthostatic complaints. feels much better. continue with creatinine and urine output monitoring. once cleared by physical therapy,may dc home if euvolemic continue w fluid restriction, dialy weights, electrolyte supplementation. per dr. Lama, no need for po amio as long as rate controlled. monitor electrolytes anddigoxin level. stillerman consult for venous ulcers. VS, I&O, 24H, Fishbone Vital Signs/I&O Vital Signs Date Time Temp Pulse Resp B/P (MAP) Pulse Ox O2 Delivery O2 Flow Rate FiO2 03/17/20 09:56 94 Room Air 03/17/20 08:41 101 03/17/20 08:40 138/87 03/17/20 06:00 97.9 18 03/11/20 16:30 2.0 I&O- Last 24 Hours up to 6 AM 03/17/20 06:00 Intake Total 3195 ml Output Total 5100 ml Balance -1905 ml Laboratory Data 24H LABS Laboratory Tests 2 03/16/20 12:05: Bedside Glucose (Misc Panel) 254H 03/16/20 16:29: Bedside Glucose (Misc Panel) 270H 03/16/20 20:41: Bedside Glucose (Misc Panel) 324H 03/17/20 05:35: Immature Granulocyte % (Auto) , Neutrophils (%) (Auto) , Nucleated Red Blood Cells % (auto) 0.0, Neutrophils 57, Band Neutrophils 2, Lymphocytes (Manual) 24, Monocytes (Manual) 8H, Eosinophils (Manual) 4H, Metamyelocytes 3H, Myelocytes 1H, Atypical Lymphocytes 1, Anisocytosis 1+, Platelet Estimate NORMAL, Anion Gap 8, Glomerular Filtration Rate > 60.0, Calcium Level 9.8 CBC/BMP Laboratory Tests 03/17/20 05:35 Microbiology Microbiology 03/14/20 Gram Stain - Final, Complete 03/14/20 Sputum Culture - Final, Complete Yeast Like Organism 03/11/20 Urine Culture - Final, Complete Staphylococcus Epidermidis 03/11/20 Respiratory Virus Panel (PCR) (DAISY) - Final, Complete 03/11/20 Blood Culture - Final, Complete NO GROWTH AFTER 5 DAYS 03/11/20 Blood Culture - Final, Complete NO GROWTH AFTER 5 DAYS TRICIA GREEN MD Mar 17, 2020 10:15
[2020-03-17] MEDS ORDERED: atenoloL 25 MG TAB PO ONE (13:00)
[2020-03-17 13:06] LABS: BODY FLUID CULTURE Not indicated. (.); LEGIONELLA ANTIGEN URINE Negative (Negative); ORGANISM ID Not indicated. (.); SPECIMEN SOURCE Urine (.); URINE STREP PNEUMONIAE ANTIGEN Negative (Negative)
[2020-03-17 15:19] LABS: MAGNESIUM LEVEL 1.7 MG/DL (1.8-2.4); POTASSIUM SERUM 4.5 MEQ/L (3.5-5.1)
[2020-03-17] MEDS: MAGNESIUM CHLORIDE 64 MG TABCR (SLO MAG) PO SCH (15:21)
[2020-03-17] MEDS ORDERED: MAG SULF 1GM/100ML (MAG RUN) 1 GM in IV 1 EA IV ONE (16:00)
[2020-03-17] MEDS ORDERED: HumaLOG INSULIN (NovoLOG) PER UNIT SC STA (18:22)
[2020-03-17] MEDS ORDERED: LEVEMIR (INSULIN DETEMIR) 1 UNITS/0.01ML SC SCH (21:00)
[2020-03-17] MEDS: NICOTINE 14 MG/24 HR TRANSDERMAL TD SCH (21:06)
[2020-03-18] MEDS ORDERED: POTA1TAB14 PO (05:29)
[2020-03-18] MEDS ORDERED: LASI40TA9 PO (05:29)
[2020-03-18] MEDS ORDERED: SLOWTAB2 PO (05:29)
[2020-03-18] MEDS ORDERED: PRED10TA2 PO (05:30)
[2020-03-18] MEDS: FUROSEMIDE 40MG/4ML VIAL (J1940) IV SCH ×2 (05:32→12:30)
[2020-03-18 06:00] VITALS: BP 130/79
[2020-03-18 06:17] LABS: HEMATOCRIT 46.2 % (42.0-52.0); HEMOGLOBIN 15.8 g/dl (13.5-17.5); MEAN CORPUSCULAR HGB CONC 34.2 g/dl (32.0-36.5); MEAN CORPUSCULAR VOLUME 90.8 fl (80.0-96.0); PLATELET COUNT, AUTOMATED 277 10^3/uL (150-450); RED BLOOD COUNT 5.09 10^6/uL (4.30-6.10); WHITE BLOOD COUNT 17.6 10^3/uL (4.0-10.0)
[2020-03-18 06:44] LABS: BLOOD UREA NITROGEN 25 MG/DL (7-18); CALCIUM LEVEL 9.8 MG/DL (8.8-10.2); CARBON DIOXIDE LEVEL 36 MEQ/L (21-32); CHLORIDE LEVEL 89 MEQ/L (98-107); CREATININE FOR GFR 0.98 MG/DL (0.70-1.30); GLOMERULAR FILTRATION RATE > 60.0 (>42); GLUCOSE, FASTING 136 MG/DL (70-100); POTASSIUM SERUM 4.4 MEQ/L (3.5-5.1); SODIUM LEVEL 131 MEQ/L (136-145)
[2020-03-18 06:55] LABS: EOSINOPHILS 4 % (0-3); LYMPHOCYTES 27 % (16-44); MONOCYTES 5 % (0-5); NEUTROPHILS 64 % (28-66); NUCLEATED RED BLOOD CELL 1 % (0-0); PLATELET ESTIMATE NORMAL (NORMAL)
[2020-03-18 06:59] LABS: HEMOGLOBIN A1c 7.9 %
[2020-03-18] MEDS: HumaLOG INSULIN (NovoLOG) PER UNIT SC SCH ×2 (07:30→12:33)
[2020-03-18] MEDS: APIXABAN 5 MG TAB (ELIQUIS) PO SCH (08:33)
[2020-03-18] MEDS: LACTOBACILLUS ACIDOPHILUS CAP (BACID) PO SCH ×2 (08:34→12:33)
[2020-03-18] MEDS: ATORVASTATIN 20 MG TAB PO SCH (08:34)
[2020-03-18] MEDS: TAMSULOSIN 0.4 MG CAP PO SCH (08:34)
[2020-03-18] MEDS: VITAMIN D 1,000 INTERNATIONAL UNITS TABLET PO SCH (08:34)
[2020-03-18] MEDS: POTASSIUM CHLORIDE 10 MEQ SR TABLET PO SCH (08:34)
[2020-03-18] MEDS: predniSONE 20 MG TAB PO SCH (08:34)
[2020-03-18] MEDS: DIGOXIN 0.125 MG TAB PO SCH (08:35)
[2020-03-18] MEDS: PANTOPRAZOLE 40MG TAB (PROTONIX) PO SCH (08:35)
[2020-03-18 08:36] VITALS: BP 128/79
[2020-03-18] MEDS: atenoloL 50 MG TAB PO SCH (08:36)
[2020-03-18] MEDS: MAGNESIUM CHLORIDE 64 MG TABCR (SLO MAG) PO SCH (08:37)
[2020-03-18] MEDS: DOXYCYCLINE HYCLATE 100 MG in D5W MINI-BAG PLUS 100 ML IV SCH ×3 (12:32)
[2020-03-18 14:00] VITALS: BP 114/73
== END 2020-03-18 16:42 | disposition home or self-care (01) | DRG 871 ==
LOC: M ED 14:41 → M ED INP 19:59 → ENRESERV 20:45 → M ICU 21:52 → M MSPAV 03-15 16:12
PROVIDERS: ADMIT Internal Medicine; ATTEND General Practice
DX: A41.9 Sepsis, unspecified organism (principal); G93.41 Metabolic encephalopathy; J18.9 Pneumonia, unspecified organism; I50.31 Acute diastolic (congestive) heart failure; N39.0 Urinary tract infection, site not specified; I48.20 Chronic atrial fibrillation, unspecified; E11.51 Type 2 diabetes mellitus with diabetic peripheral angiopathy without gangrene; N40.0 Benign prostatic hyperplasia without lower urinary tract symptoms; E78.5 Hyperlipidemia, unspecified; J44.9 Chronic obstructive pulmonary disease, unspecified; I11.0 Hypertensive heart disease with heart failure; Z79.82 Long term (current) use of aspirin; Z79.899 Other long term (current) drug therapy; F17.210 Nicotine dependence, cigarettes, uncomplicated

== ENCOUNTER → 2020-03-26 | Outpatient (REF) | payer OTHER ==
[~2020-03-26] MED LIST changes: +GUAI400T9 PO; +HYDR-3713 PO; +LASI40TA9 PO; +PATIENT COMMENT; +POTA1TAB14 PO; +PRED10TA2 PO; +SLOWTAB2 PO; +VITA-122 PO
[2020-03-26 14:58] LABS: APPEARANCE, URINE CLOUDY (CLEAR); BACTERIA, URINE AUTO NEGATIVE (NEGATIVE); BILIRUBIN, URINE AUTO NEGATIVE (NEGATIVE); BLOOD, URINE BLOOD 2+ (NEGATIVE); CALCIUM OXALATE CRYSTALS LARGE; COLOR, URINE YELLOW (YELLOW); GLUCOSE, URINE (UA) AUTO 2+ mg/dL (NEGATIVE); KETONE, URINE AUTO TRACE mg/dL (NEGATIVE); LEUKOCYTE ESTERASE, URINE AUTO 3+ (NEGATIVE); NITRITE, URINE AUTO NEGATIVE (NEGATIVE); PROTEIN, URINE AUTO 2+ mg/dL (NEGATIVE); RBC, URINE AUTO 104 /HPF (0-3); SPECIFIC GRAVITY URINE AUTO 1.024 (1.002-1.035); SQUAMOUS EPITHELIAL CELL UR AU 0 /HPF (0-6); WBC, URINE AUTO TNTC /HPF (0-3)
== END ==
LOC: M SMT 13:20
PROVIDERS: ATTEND Nurse Practitioner Women's Health
DX: N39.0 Urinary tract infection, site not specified (principal)
CPT/HCPCS: 51798; 81001; 87088; 87186; G0463

== ENCOUNTER 2020-04-17 22:44 | Emergency (ER) | payer MEDICARE, OTHER ==
[~2020-04-17] VITALS: Ht 175.3 cm; Wt 90.5 kg
[2020-04-17] MEDS ORDERED: BUPR150T5 (23:11)
--- NOTE | 2020-04-17 23:33 | REPVR ---
PROCEDURE INFORMATION: Exam: CT Cervical Spine Without Contrast Exam date and time: 04/17/2020 10:58 PM Age: 70 years old Clinical indication: Neck pain; Additional info: Fall TECHNIQUE: Imaging protocol: Computed tomography images of the cervical spine without contrast. Radiation optimization: All CT scans at this facility use at least one of these dose optimization techniques: automated exposure control; mA and/or kV adjustment per patient size (includes targeted exams where dose is matched to clinical indication); or iterative reconstruction. COMPARISON: No relevant prior studies available. FINDINGS: Bones/joints: Trace anterolisthesis C4 on C5. Vertebral body heights are preserved. Moderate degenerative change about the dens. There are bilateral facet joint degenerative changes. No acute cervical spine fracture. Discs/Spinal canal/Neural foramina: No definite significant central canal stenosis within limitations of technique. Lungs: Emphysema. Pleural space: No visible pneumothorax. Vasculature: Vascular calcification. Soft tissues: Unremarkable. IMPRESSION: No acute cervical spine fracture. Electronically signed by: Thomas Reaves On 04/17/2020 23:33:49 PM
--- NOTE | 2020-04-17 23:43 | REPVR ---
PROCEDURE INFORMATION: Exam: CT Head Without Contrast Exam date and time: 04/17/2020 10:58 PM Age: 70 years old Clinical indication: Injury or trauma; Fall; Concussion/head injury; Consciousness not specified TECHNIQUE: Imaging protocol: Computed tomography of the head without contrast. Radiation optimization: All CT scans at this facility use at least one of these dose optimization techniques: automated exposure control; mA and/or kV adjustment per patient size (includes targeted exams where dose is matched to clinical indication); or iterative reconstruction. COMPARISON: CT Head without contrast 03/11/2020 5:52 PM FINDINGS: Brain: Mild decreased attenuation of the supratentorial white matter is likely secondary to chronic microvascular ischemia. No acute intracranial hemorrhage. Cerebral ventricles: Ventricular and subarachnoid spaces are age appropriate. Bones/joints: Unremarkable. No acute fracture. Paranasal sinuses: Visualized sinuses are unremarkable. No fluid levels. Mastoid air cells: Visualized mastoid air cells are well aerated. Vasculature: Intracranial vascular calcification. Soft tissues: Unremarkable. IMPRESSION: No acute intracranial abnormality. Electronically signed by: Thomas Reaves On 04/17/2020 23:43:47 PM
[2020-04-18 00:19] LABS: BASO # 0.1 10^3/uL (0.0-0.2); BASO % 0.4 % (0.0-1.0); EOS # 0.1 10^3/uL (0.0-0.5); EOS % 0.6 % (0.0-3.0); HEMATOCRIT 42.7 % (42.0-52.0); HEMOGLOBIN 13.7 g/dl (13.5-17.5); LYMPH # 1.5 10^3/uL (1.5-5.0); LYMPH % 9.9 % (24.0-44.0); MEAN CORPUSCULAR HEMOGLOBIN 30.4 pg (27.0-33.0); MEAN CORPUSCULAR HGB CONC 32.1 g/dl (32.0-36.5); MEAN CORPUSCULAR VOLUME 94.9 fl (80.0-96.0); MONO # 1.4 10^3/uL (0.0-0.8); MONO % 8.6 % (0.0-5.0); NEUTROPHILS # 12.4 10^3/uL (1.5-8.5); NEUTROPHILS % 79.4 % (36.0-66.0); PLATELET COUNT, AUTOMATED 301 10^3/uL (150-450); WHITE BLOOD COUNT 15.6 10^3/uL (4.0-10.0)
[2020-04-18 00:49] LABS: ALT/SGPT 51 U/L (12-78); BILIRUBIN,DIRECT 0.3 MG/DL (0.0-0.2); BILIRUBIN,TOTAL 0.7 MG/DL (0.2-1.0); BLOOD UREA NITROGEN 16 MG/DL (7-18); CALCIUM LEVEL 9.3 MG/DL (8.8-10.2); CARBON DIOXIDE LEVEL 29 MEQ/L (21-32); CHLORIDE LEVEL 100 MEQ/L (98-107); CK-MB VALUE MASS 1.2 NG/ML (<3.6); CPK CREATINE PHOSPHOKINASE 40 U/L (39-308); CREATININE FOR GFR 0.91 MG/DL (0.70-1.30); GLOMERULAR FILTRATION RATE > 60.0 (>42); GLUCOSE, FASTING 131 MG/DL (70-100); NT-PRO BNP 439 PG/ML (<125); POTASSIUM SERUM 4.4 MEQ/L (3.5-5.1); SODIUM LEVEL 135 MEQ/L (136-145); TROPONIN I < 0.02 NG/ML (< 0.10)
[2020-04-18 01:36] LABS: APPEARANCE, URINE HAZY (CLEAR); BACTERIA, URINE AUTO 1+ (NEGATIVE); BILIRUBIN, URINE AUTO NEGATIVE (NEGATIVE); BLOOD, URINE BLOOD 1+ (NEGATIVE); COLOR, URINE YELLOW (YELLOW); GLUCOSE, URINE (UA) AUTO 1+ mg/dL (NEGATIVE); KETONE, URINE AUTO NEGATIVE (NEGATIVE); LEUKOCYTE ESTERASE, URINE AUTO 2+ (NEGATIVE); MUCUS, URINE SMALL (NEGATIVE); NITRITE, URINE AUTO NEGATIVE (NEGATIVE); PROTEIN, URINE AUTO 1+ mg/dL (NEGATIVE); RBC, URINE AUTO 29 /HPF (0-3); SPECIFIC GRAVITY URINE AUTO 1.024 (1.002-1.035); SQUAMOUS EPITHELIAL CELL UR AU 0 /HPF (0-6); WBC, URINE AUTO 137 /HPF (0-3)
[2020-04-18] MEDS ORDERED: METOPROLOL TARTRATE 100 MG TAB PO STA (02:07)
[2020-04-18 02:45] VITALS: BP 102/63
[2020-04-18 05:23] VITALS: BP 117/67
[2020-04-18] MEDS ORDERED: LEVO750T13 PO (05:39)
[2020-04-18] MEDS ORDERED: LevoFLOXacin 750 MG TABLET PO ONE (05:45)
--- NOTE | 2020-04-18 13:35 | ECGEPIP ---
[facility] - ED Test Date: 2020-04-18 Pat Name: JOSS DALE Department: Room: - Gender: Male Ticket Sorter: RIMMA : 1950 Requested By: BERTHA Wong Order Number: [id number] Reading MD: Kelsi Askew Measurements Intervals [place] Rate: 114 P: CO: 0 QRS: 46 QRSD: 77 T: 161 QT: 313 QTc: 433 Interpretive Statements ATRIAL FIBRILLATION WITH RAPID VENTRICULAR RESPONSE NONSPECIFIC T-WAVE ABNORMALITY baseline artifact may affect interpretation DECREASED RATE 03/11/20 Electronically Signed on 04-18-2020 13:35:31 EST by Kelsi Askew
== END 2020-04-18 07:33 | disposition home or self-care (01) ==
LOC: M ED 22:44
DX: N39.0 Urinary tract infection, site not specified (principal); I48.91 Unspecified atrial fibrillation; Z79.82 Long term (current) use of aspirin; Z79.84 Long term (current) use of oral hypoglycemic drugs; Z79.899 Other long term (current) drug therapy

== ENCOUNTER → 2020-04-22 | Outpatient (CLI) | payer OTHER ==
[~2020-04-22] MED LIST changes: +BUPR150T5; +ISOVUE-300 61% 50ML VIAL As Ordered ONE; +LEVO750T13 PO; +LIDOCAINE 1% MDV 20ML VIAL As Ordered ONE; +MIDAZOLAM INJ 2MG/2ML VIAL (J2250 PER 1MG) As Ordered ONE; +diphenhydrAMINE 50MG/ML VIAL (J1200) As Ordered ONE; +fentaNYL 100 MCG/2 ML INJECTION (J3010) As Ordered ONE
--- NOTE | 2020-04-22 12:42 | IRHP ---
[facility] IR Pre-Procedure H & P General Date of Service: Apr 22, 2020 Procedure: Same Day Surgery Interval History and Physical I have seen the patient and reviewed last H & P performed within 30 days. There is no significant interval change. History of Present Illness Chief Complaint The patient is a 70-year-old male admitted with a reason for visit of PAD. PRE-PROCEDURE DIAGNOSIS: PAD HEART: normal rate. LUNGS: normal breathing at rest. ASA Classification ASA Classification: III-Severe systemic dis. Mallampati Score: II NPO: Yes Problems with prior sedation: No Obstructive Sleep Apnea: No Plan moderate sedation Allergies Coded Allergies: No Known Allergies (Unverified , 09/19/15) Home Medications Scheduled Aspirin (Aspirin EC), 325 MG PO DAILY, (Reported) Atorvastatin Calcium (Atorvastatin Calcium), 20 MG PO DAILY, (Reported) Cholecalciferol (Vitamin D3) (Vitamin D3), 50 MCG PO DAILY, (Reported) Digoxin (Digoxin), 125 MCG PO DAILY, (Reported) Lisinopril (Lisinopril), 2.5 MG PO DAILY, (Reported) Metformin HCl (Metformin HCl), 1,000 MG PO BID, (Reported) Metoprolol Tartrate (Metoprolol Tartrate), 100 MG PO BID, (Reported) Tamsulosin Hcl (Tamsulosin HCl), 0.8 MG PO DAILY, (Reported) Scheduled PRN Albuterol Sulfate (Proair Hfa), 216 MCG INH Q4H PRN for SHORTNESS OF BREATH, ( Reported) Miscellaneous Medications Bupropion Hcl (Bupropion HCl Sr), (Reported) [Patient Comment], (Reported) Discontinued Medications Furosemide (Lasix), 40 MG PO DAILY Discontinued Reason: Pt states not taking Guaifenesin (Guaifenesin), 400 MG PO Q4H PRN for COUGH, (Reported) Discontinued Reason: Pt states not taking Hydrocodone/Acetaminophen (Hydrocodone-Acetamin 5-325 mg), 1 TAB PO Q4-6HP PRN for PAIN, (Reported) Discontinued Reason: Pt states not taking Levofloxacin (Levofloxacin), 1 TAB PO DAILY Discontinued Reason: Pt states not taking Magnesium Chloride (Slow-Mag), 1 TAB PO DAILY PRN for 0 Discontinued Reason: Pt states not taking Potassium Chloride (Potassium Chloride), 40 MEQ PO DAILY Discontinued Reason: Pt states not taking Prednisone (Prednisone), 10 MG PO TAPER Discontinued Reason: Pt states not taking VS, I&O, 24H, Fishbone Vital Signs/I&O Vital Signs Date Time Temp Pulse Resp B/P (MAP) Pulse Ox O2 Delivery O2 Flow Rate FiO2 04/22/20 12:16 97.8 84 18 97 Room Air SIENA ZAMORA MD Apr 22, 2020 12:42
[2020-04-22 17:45] VITALS: BP 112/68
--- NOTE | 2020-04-24 13:36 | POST-OPPD ---
Postoperative Procedure Note Date Of Procedure: Apr 22, 2020 Time Of Procedure: 16:00 IR Right leg angiogram. IR Attempted right SFA recanalization. IR Moderate sedation. Clinical Information:Nonhealing right lower extremity ulcers. Right lower extremity rest pain. Limb salvage. Physician: Dr. Bolton. Procedure: The patient was advised of the benefits, risks, and alternatives of the procedure and informed consent was obtained. A time out was performed with verification of the patient's name, MRN, site of procedure, and type of procedure to be performed. The patient was positioned in the supine position on the angiographic table. The site was prepped and draped in the usual sterile fashion. Moderate sedation was performed by the physician including the presence of an independent trained RN, who assisted in monitoring the patient's level of consciousness and physiological status. Following the administration of fentanyl and Versed, the physician spent 120 minutes of continuous [id number] time with the patient. A infusion rn radiograph reveals right common femoral and SFA calcifications. Lidocaine was used for local anesthesia. The left common femoral artery was accessed, under ultrasound guidance with a microintroducer set. A short 0.018" [place] wire was inserted and the needle was exchanged for a 4 Fr microintroducer sheath. The guidewire and dilator were removed and a 0.035" [place] wire was placed into the abdominal aorta. A 6 Fr sheath was placed over the wire. A flush catheter was advanced over the wire and used to catheterize the infrarenal abdominal aorta. A pelvic arteriogram was performed. This demonstrates unremarkable infrarenal abdominal aorta. Patent bilateral common iliac, internal and external iliac arteries. Complete occlusion of the right common femoral and superficial femoral artery junction. The catheter and wire were used to gain up and over access into the right external iliac artery. The catheter was exchanged over the wire for a Glidecath. The Glidecath was used to catheterize the right external iliac artery. A right leg angiogram was performed. This demonstrates complete occlusion of the right common femoral, superficial femoral artery junction and the right superficial femoral artery. Occlusion of the right profunda femoris. There are few collaterals in the right thigh. Angiography further down the right leg was performed and this demonstrates complete occlusion of the proximal, mid and distal superficial femoral artery. Occlusion of the profunda femoris. There is faint reconstitution of the popliteal artery at the knee which is severely delayed. Poor collateralization in the thigh. The catheter was exchanged over the wire for a [place] catheter. Heparin was administered. A [place] catheter in conjunction with a wire was used under fluoroscopy guidance to try to recanalize the right superficial femoral artery. Intermittent injection of contrast confirmed intraluminal location. After catheterization to the proximal thigh and angiogram was performed and this demonstrates catheterization of the collateral vessel and not [place] SFA. Multiple attempts were then made with a [place] catheter and wire to try to recanalize the [place] calcified right superficial femoral artery. This was not successful. The catheter, wire and sheath were removed. A 6 [place] Mynx device was used to close the left groin arteriotomy. Hemostasis achieved and a sterile dressing was applied to the site. The patient tolerated the procedure well and was returned to the PRU in stable condition. EBL: < 5 mL. Complications:None. Impression: 1. Right leg angiogram demonstrates complete occlusion of the right common femoral superficial femoral artery junction, proximal, mid and distal superficial femoral artery with faint reconstitution of the popliteal artery at the knee. Patient has poor collateralization in the right leg and near to [id number] supply. 2. Unsuccessful recanalization of right superficial femoral artery via cont ralateral up and over access. We will reattempt with an ipsilateral right leg antegrade and retrograde approach. Patient has severe disease burden with occlusion of both SFA and profunda femoris, poor collateralization and therefore extremely low and delayed below-knee flow. Other options include consideration for femoropopliteal bypass. Patient remains at high risk of amputation. Thank you for this referral CC SIENA Guevara MD Apr 24, 2020 13:36
== END ==
LOC: M IRPRO 11:46
PROVIDERS: ATTEND Radiology Diagnostic Radiology
DX: I70.239 Atherosclerosis of native arteries of right leg with ulceration of unspecified site (principal); I70.221 Atherosclerosis of native arteries of extremities with rest pain, right leg; I70.92 Chronic total occlusion of artery of the extremities; Z79.84 Long term (current) use of oral hypoglycemic drugs; Z79.899 Other long term (current) drug therapy
CPT/HCPCS: 36246; 75710; 99152; 99153; C1760; C1769; C1887; C1894; G0269; J1200; J1644; J2250; J3010; Q9967

== ENCOUNTER → 2020-09-24 | Outpatient (REF) | payer OTHER ==
[~2020-09-24] MED LIST changes: +ACET1TAB16 PO; +ALBU83IN INH; +ALBU83IN NEB; +ASPI81TA26; +DOCU100C16; +GLIP5TAB8; -ISOVUE-300 61% 50ML VIAL As Ordered ONE; -LIDOCAINE 1% MDV 20ML VIAL As Ordered ONE; -LISI-542 PO; -LISI2.5T2 PO; +LISI2.5T9 PO; +LISI5TAB11 PO; -MIDAZOLAM INJ 2MG/2ML VIAL (J2250 PER 1MG) As Ordered ONE; -VITA-122 PO; +VITA-168 PO; -diphenhydrAMINE 50MG/ML VIAL (J1200) As Ordered ONE; -fentaNYL 100 MCG/2 ML INJECTION (J3010) As Ordered ONE
[2020-09-24 13:56] LABS: APPEARANCE, URINE CLOUDY (CLEAR); BACTERIA, URINE AUTO 1+ (NEGATIVE); BILIRUBIN, URINE AUTO NEGATIVE (NEGATIVE); BLOOD, URINE BLOOD 1+ (NEGATIVE); CALCIUM OXALATE CRYSTALS SMALL; COLOR, URINE YELLOW (YELLOW); GLUCOSE, URINE (UA) AUTO NEGATIVE (NEGATIVE); KETONE, URINE AUTO NEGATIVE (NEGATIVE); LEUKOCYTE ESTERASE, URINE AUTO 3+ (NEGATIVE); MUCUS, URINE SMALL (NEGATIVE); NITRITE, URINE AUTO POSITIVE (NEGATIVE); PROTEIN, URINE AUTO NEGATIVE (NEGATIVE); RBC, URINE AUTO 15 /HPF (0-3); SPECIFIC GRAVITY URINE AUTO 1.024 (1.002-1.035); SQUAMOUS EPITHELIAL CELL UR AU 1 /HPF (0-6); UROBILINOGEN, URINE AUTO 0.2 mg/dL (0.0-2.0); WBC, URINE AUTO TNTC /HPF (0-3)
== END ==
LOC: M SMT 12:51
PROVIDERS: ATTEND Nurse Practitioner Women's Health
DX: N40.1 Benign prostatic hyperplasia with lower urinary tract symptoms (principal)
CPT/HCPCS: 51798; 81001; 87088; 87186; G0463

== ENCOUNTER 2020-09-28 12:03 | Emergency (ER) | payer MEDICARE, OTHER ==
[~2020-09-28] VITALS: Ht 172.7 cm; Wt 79.7 kg
[~2020-09-28 12:03] MED LIST changes: -ACET1TAB16 PO; -ALBU83IN INH; -ALBU83IN NEB; -ASPI81TA26; -DOCU100C16; -GLIP5TAB8; +LISI-898 PO; +LISI2.5T2 PO; -LISI2.5T9 PO; -LISI5TAB11 PO
[2020-09-28] MEDS ORDERED: LEVALBUTEROL HFA 45MCG/ACT 15 GM INHALER INH PRN (12:45)
[2020-09-28 13:28] LABS: BASO # 0.1 10^3/uL (0.0-0.2); EOS # 0.4 10^3/uL (0.0-0.5); EOS % 5.1 % (0.0-3.0); HEMOGLOBIN 15.4 g/dl (13.5-17.5); LYMPH # 1.3 10^3/uL (1.5-5.0); LYMPH % 14.9 % (24.0-44.0); MEAN CORPUSCULAR HEMOGLOBIN 31.3 pg (27.0-33.0); MEAN CORPUSCULAR HGB CONC 33.5 g/dl (32.0-36.5); MEAN CORPUSCULAR VOLUME 93.5 fl (80.0-96.0); MONO # 0.9 10^3/uL (0.0-0.8); NEUTROPHILS # 5.7 10^3/uL (1.5-8.5); NEUTROPHILS % 67.8 % (36.0-66.0); RED BLOOD COUNT 4.92 10^6/uL (4.30-6.10); WHITE BLOOD COUNT 8.4 10^3/uL (4.0-10.0)
[2020-09-28 13:54] LABS: ALBUMIN 3.4 GM/DL (3.2-5.2); BILIRUBIN,DIRECT 0.1 MG/DL (0.0-0.2); BILIRUBIN,TOTAL 0.3 MG/DL (0.2-1.0); TOTAL PROTEIN 6.6 GM/DL (6.4-8.2)
--- NOTE | 2020-09-28 14:41 | REP ---
INDICATION: congestion. COMPARISON: Comparison chest x-ray 15 March 2020. TECHNIQUE: Two views.. FINDINGS: The lungs are quite hyperinflated with an increase in the AP diameter of the chest and flattening of the hemidiaphragms. This is unchanged. Pleural angles appear to be sharp. There are old healed rib fractures bilaterally. No acute bony abnormality is seen. Degenerative changes are seen in the thoracic spine. The heart is at the upper range of normal in size. Pulmonary vasculature is not increased. There is some platelike atelectasis in the left base. No acute infiltrate is seen. IMPRESSION: Hyperinflation consistent with COPD. Platelike atelectasis left base. No acute infiltrate. Borderline heart size.. <Electronically signed by Adi Huntley > 09/28/20 [id number]
[2020-09-28 14:49] VITALS: BP 111/67
[2020-09-28] MEDS ORDERED: ALBU83IN NEB (14:50)
[2020-09-29] MEDS ORDERED: ALBU83IN INH (15:56)
== END 2020-09-28 15:05 | disposition home or self-care (01) ==
LOC: M ED 12:03
DX: J02.9 Acute pharyngitis, unspecified (principal); J44.9 Chronic obstructive pulmonary disease, unspecified; R05 Cough; R06.2 Wheezing; I48.91 Unspecified atrial fibrillation; E11.9 Type 2 diabetes mellitus without complications; E78.5 Hyperlipidemia, unspecified; I10 Essential (primary) hypertension; F17.200 Nicotine dependence, unspecified, uncomplicated; Z79.82 Long term (current) use of aspirin; Z79.84 Long term (current) use of oral hypoglycemic drugs; Z79.899 Other long term (current) drug therapy

== ENCOUNTER 2020-11-27 10:46 | Emergency (ER) | payer MEDICARE, OTHER ==
[~2020-11-27] VITALS: Ht 172.7 cm; Wt 175.0 kg
[~2020-11-27 10:46] MED LIST changes: +ALBU83IN INH; +ALBU83IN NEB; -LISI2.5T2 PO; +LISI2.5T9 PO
[2020-11-27] MEDS ORDERED: ACET1TAB16 PO (14:09)
--- NOTE | 2020-11-27 14:20 | REP ---
INDICATION: fall, pain. COMPARISON: None. TECHNIQUE: Three views FINDINGS: There is a comminuted nondisplaced fracture of the humeral neck and head. IMPRESSION: Comminuted nondisplaced fracture humeral head and neck. <Electronically signed by Reynold Holliday > 11/27/20 [id number]
[2020-11-27 14:27] VITALS: BP 164/87
== END 2020-11-27 14:29 | disposition home or self-care (01) ==
LOC: M ED 10:46
DX: S42.295A Other nondisplaced fracture of upper end of left humerus, initial encounter for closed fracture (principal); W19.XXXA Unspecified fall, initial encounter; Y92.099 Unspecified place in other non-institutional residence as the place of occurrence of the external cause; Y93.9 Activity, unspecified; Y99.9 Unspecified external cause status; E11.9 Type 2 diabetes mellitus without complications; I10 Essential (primary) hypertension; E78.5 Hyperlipidemia, unspecified; Z79.82 Long term (current) use of aspirin; Z79.84 Long term (current) use of oral hypoglycemic drugs; Z79.899 Other long term (current) drug therapy

== ENCOUNTER → 2021-01-31 | Outpatient (CLI) | payer MEDICARE, OTHER ==
[~2021-01-31] MED LIST changes: +ACET1TAB16 PO
== END ==
LOC: M LABSMTC 10:07
PROVIDERS: ATTEND Anesthesiology
DX: Z01.812 Encounter for preprocedural laboratory examination (principal); Z20.822 Contact with and (suspected) exposure to COVID-19

== ENCOUNTER 2021-02-05 06:34 | Day surgery (SDC) | payer OTHER ==
[~2021-02-05] VITALS: Ht 172.7 cm; Wt 90.7 kg
[~2021-02-05 06:34] MED LIST changes: +ASPI81TA26; +DOCU100C16; +GLIP5TAB8; +NS 1,000 ML IV ONE
--- OUTSIDE RECORDS SUMMARY | 2021-02-05 06:37 | CCD | Continuity of Care Document ---
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 Name Role Phone Kelsi Askew MD AUTM Problems Active Problems Provider Date Essential hypertension Mathieu Her MD Onset: 05/21/2017 Pure hypercholesterolemia Mathieu Her MD Onset: 018 Type 2 diabetes mellitus YADIEL Davalos Onset: 12/03/19 21 Social History Type Date Description Comments Sex Unknown ETOH Use Rarely consumes alcohol Tobacco Use Start: Unknown Patient is a current smoker, smo kes every day Allergies and adverse reactions Description No Known Drug Allergies Medications Active Medications SIG Qnty Indications Ordering Provide r Date Tylenol With Codeine #3 300-30mg T ablets 1 tabs every 6 hours as needed pain 30tabs S42.295D Mathieu Her MD 12/06/2020 Atorvastatin Calcium 20mg Tablets 1 by mouth every day Unknown Tamsulosin HCL 0.4mg Capsules 1 by mouth every day Unknown Metoprolol Succinate ER 100mg Tablets ER 24HR twice a day Unknown Lisinopril 2.5mg Tablets take one tablet by mouth at bedtime Unknown Metformin HCL 500mg Tablets take one tablet by mouth twice a day Unknown Digoxin 125mcg Tablets 1 by mouth every day Unknown Hydroxyzine HCL 25mg Tablets take 1-2 tabs by mouth for breakthru anxiety Unknown 0 Ranitidine HCL 150mg Tablets take one tablet by mouth twice a day Unknown Vitamin D High Potency 1000Unit Ca psules twice daily Unknown Immunizations Description No Information Available Vital Signs Date Vital Result Comment 01/24/2021 3:24pm Body Temperature 97.1 F Height 68 inches 5'8" Weight 213.00 lb BMI (Body Mass Index) 32.4 kg/m2 05/21/2017 10:37am Body Temperature 97.8 F Height 66 inches 5'6" Weight 213.00 lb BMI (Body Mass Index) 34.4 kg/m2 Results Test Acquired Date Facility Test Result H/L Range Note Respiratory Panel 09/28/2020 [facility] ntr [address] [place] [address] (315)- - Respiratory Panel This respiratory <SEE NOTE> 1 Liver Profile 09/28/2020 [facility] ntr [address] [place] [address] (315)- - Ast/Sgot 16 U/L Normal 7-37 Alt/SGPT 37 U/L Normal 12-78 Alkaline Phosphatase 102 U/L Normal 45-117 Bilirubin,Total 0.3 mg/dL Normal 0.2-1.0 Bilirubin,Direct 0.1 mg/dL Normal 0.0-0.2 Total Protein 6.6 GM/DL Normal 6.4-8.2 Albumin 3.4 GM/DL Normal 3.2-5.2 Albumin/Globulin Ratio 1.1 Normal CBC With Differential 09/28/[address] [address] (315)- - White Blood Count 8.4 10 Normal 4.0-10.0 Red Blood Count 4.92 10 Normal 4.30-6.10 Hemoglobin 15.4 g/dL Normal 13.5-17.5 Hematocrit 46.0 % Normal 42.0-52.0 Mean Corpuscular Volume 93.5 fl Normal 80.0-96.0 Mean Corpuscular Hemoglobin 31.3 pg Normal 27.0-33.0 Mean Corpuscular HGB Conc 33.5 g/dL Normal 32.0-36.5 Red Cell Distribution Width 13.3 % Normal 11.5-14.5 Platelet Count, Automated TNP 10 Normal 150-450 2 Neutrophils % 67.8 % High 36.0-66.0 Lymph % 14.9 % Low 24.0-44.0 [place] % 11.0 % High 2.0-8.0 Eos % 5.1 % High 0.0-3.0 Baso % 1.0 % Normal 0.0-1.0 Immature Granulocyte % 0.2 % Normal 0-3.0 Nucleated Red Blood Cell % 0.0 % Normal 0-0 Neutrophils # 5.7 10 Normal 1.5-8.5 Lymph # 1.3 10 Low 1.5-5.0 [place] # 0.9 10 High 0.0-0.8 Eos # 0.4 10 Normal 0.0-0.5 Baso # 0.1 10 Normal 0.0-0.2 1 This respiratory PCR panel d etects Influenza A H1, H3 and 2009 H1 viruses, Influenza B virus, Resp iratory Syncytial Virus, Human metapneumovirus, Parainfluenza virus 1, 2, 3 and 4, Adenovirus, Rhinovirus/Enterovirus, Coronavirus HKU1, NL63, OC43, 229E and SARS-CoV-2 (COVID 19), Bordetella pertussis, Bordetella parapertussis, Mycoplasma pneumoniae and Chlamydia pneumoniae. NEGATIVE by MULTIPLEXED NUCLEIC ACID PCR SARS-CoV-2 (COVID 19) NEGATIVE - SARS-CoV-2 (COVID19) 2 UNABLE TO REPORT A PLATELET COUNT DUE TO CLUMPING. Procedures Date Code Description Status 01/24/2021 25739 Office/Outpatient Established Lo w MDM 20-29 Min Completed 01/24/2021 49028 X-Ray Shoulder Complete Complete d 01/03/2021 02621 Office/Outpatient Established Lo w MDM 20-29 Min Completed 01/03/2021 64118 X-Ray Shoulder Complete Complete d 12/06/2020 36678 Office/Outpatient Established Lo w MDM 20-29 Min Completed 12/06/2020 84003 X-Ray Shoulder Complete Complete d 11/29/2020 92785 Office/Outpatient New Moderate M DM 45-59 Minutes Completed Medical Devices Description No Information Available Encounters Type Date Location Provider Dx Diagnosis Office Visit 01/24/2021 3:00p [place] YADILE Davalos S42.295D Oth nondisp fx of upr melanie [place] for fx w routn heal Office Visit 01/03/2021 11:15a [place] YADIEL Davalos S42.295D Oth nondisp [facility] 12/06/2020 8:30a [place] Candi Her PA-C S42.295 D Oth nondisp fx of upr end l humer, subs for fx w routn [facility] Office Visit 11/29/2020 9:00a [place] YADIEL Davalos S42.295A Oth nondisp fx of upper end of left humerus, init Assessments Date Code Description Provider 01/24/2021 S42.295D Other nondisplaced f racture of upper end of left humerus, subsequent encounter for fracture with routine healing YADIEL Davalos 01/03/2021 S42.295D Other nondisplaced f racture of upper end of left humerus, subsequent encounter for fracture with routine healing YADIEL Davalos 12/06/2020 S42.295D Other nondisplaced f racture of upper end of left humerus, subsequent encounter for fracture with routine healing Candi Her PA-C 11/29/2020 S42.295A Other nondisplaced f racture of upper end of left humerus, initial encounter for closed fracture YADIEL Davalos Plan of Treatment Future Appointment(s):* 02/12/2021 9:15 am - YADIEL Davalos at [place] 01/24/2021 - YADIEL Davalos* S42.295D Other nondisplaced fracture of upper end of left humerus, subsequent encounter for fracture with routine healing* Follow up:* 2 weeks Lt. shoulder shonna with 3 view xray with IID. Functional Status Description No Information Available Mental Status Description No Information Available Referrals Description No Information Available
--- OUTSIDE RECORDS SUMMARY | 2021-02-05 06:37 | CCD | Continuity of Care Document ---
Author Author Duke OTERO PA Organization Unknown Address [address] [place] [address], [address] [place] [address] Phone [phone] Care Team Providers Care Dog Bather Name Role Phone Kelsi Askew MD AUTM [phone] Problems Active Problems Provider Date Essential hypertension Mathieu Her MD Onset: 05/21/2017 Pure hypercholesterolemia Mathieu Her MD Onset: 018 Type 2 diabetes mellitus YADIEL Davalos Onset: 12/03/19 21 Social History Type Date Description Comments Sex Unknown ETOH Use Rarely consumes alcohol Tobacco Use Start: Unknown Patient is a current smoker, smo kes every day Allergies, Adverse Reactions, Alerts Description No Known Drug Allergies Medications Active [...] Available Vital Signs Date Vital Result Comment 05/21/2017 10:37am Body Temperature 97.8 F Height 66 inches 5'6" Weight 213.00 lb BMI (Body Mass Index) 34.4 kg/m2 Results Test Acquired Date Facility Test Result H/L Range Note Respiratory Panel 09/28/2020 [facility] ntr [address] [place] [address] (315)- - Respiratory Panel This respiratory <SEE NOTE> 1 Liver Profile 09/28/2020 [facility] ntr [address] [place] [address] (315)- - Ast/Sgot 16 U/L Normal 7-37 Alt/SGPT 37 U/L Normal 12-78 Alkaline Phosphatase 102 U/L Normal 45-117 Bilirubin,Total 0.3 mg/dL Normal 0.2-1.0 Bilirubin,Direct 0.1 mg/dL Normal 0.0-0.2 Total Protein 6.6 GM/DL Normal 6.4-8.2 Albumin 3.4 GM/DL Normal 3.2-5.2 Albumin/Globulin Ratio 1.1 Normal CBC With Differential 09/28/2020 [facility] [address] [place] [address] (315)- - White Blood Count 8.4 10 [...] 36.0-66.0 Lymph % 14.9 % Low 24.0-44.0 [place] % 11.0 % High 2.0-8.0 Eos % 5.1 % High 0.0-3.0 Baso % 1.0 % Normal 0.0-1.0 Immature Granulocyte % 0.2 % Normal 0-3.0 Nucleated Red Blood Cell % 0.0 % Normal 0-0 Neutrophils # 5.7 10 Normal 1.5-8.5 Lymph # 1.3 10 Low 1.5-5.0 [place] # 0.9 10 High 0.0-0.8 Eos # [...] TO CLUMPING. Procedures Date Code Description Status 01/03/2021 84725 Office/Outpatient Established Lo w MDM 20-29 Min Completed 01/03/2021 28657 X-Ray Shoulder Complete Complete d 12/06/2020 62239 Office/Outpatient Established Lo w MDM 20-29 Min Completed 12/06/2020 12651 X-Ray Shoulder Complete Complete d 11/29/2020 98319 Office/Outpatient New Moderate M DM 45-59 Minutes Completed Medical Devices Description No Information Available Encounters Type Date Location Provider Dx Diagnosis Office Visit [place] S42.295D Oth nondisp fx of upr end l humer, subs for fx w [facility] Office Visit 12/06/2020 8[place]a [place] S42.295 D Oth nondisp fx of upr end l humer, subs for fx w [facility] Office Visit 11/29/2020 9[place] S42.295A Oth nondisp fx of upper end of left humerus, init Assessments Date Code Description Provider 01/03/2021 S42.295D Other nondisplaced f racture of upper end of left humerus, subsequent encounter for fracture with routine healing YADIEL Davalos 12/06/2020 S42.295D Other nondisplaced f racture of upper end of left humerus, subsequent encounter for fracture with routine healing YADIEL Merino-C 11/29/2020 S42.295A Other nondisplaced f racture of upper end of left humerus, initial encounter for closed fracture YADIEL Davalos Plan of Treatment Future Appointment(s):* 01/24/2021 3:00 pm - YADIEL Davalos at [place] 01/03/2021 - YADIEL Davalos* S42.295D Other nondisplaced fracture of upper end of left humerus, subsequent encounter for fracture with routine healing* Follow up:* 3 week lt shoulder recheck w/IID, please repeat x-rays Functional Status Description No Information Available Mental Status Description No Information Available Referrals Description No Information Available
--- OUTSIDE RECORDS SUMMARY | 2021-02-05 06:37 | CCD | Continuity of Care Document ---
Author Author Duke OTERO PA Organization Unknown Address [address] [place] [address], [address] [place] [address] Phone [phone] Care Team Providers Care Intermission Coordinator Name Role Phone Kelsi Askew MD AUTM [...] Result H/L Range Note Respiratory Panel 09/28/2020 [facility] ntr [address] [place] [address] (315)- - Respiratory Panel This respiratory <SEE NOTE> 1 Liver Profile 09/28/2020 [facility] ntr [address] [place] [address] (315)- - Ast/Sgot 16 U/L Normal 7-37 Alt/SGPT 37 U/L Normal 12-78 Alkaline Phosphatase 102 U/L Normal 45-117 Bilirubin,Total 0.3 mg/dL Normal 0.2-1.0 Bilirubin,Direct 0.1 mg/dL Normal 0.0-0.2 Total Protein 6.6 GM/DL Normal 6.4-8.2 Albumin 3.4 GM/DL Normal 3.2-5.2 Albumin/Globulin Ratio 1.1 Normal CBC With Differential 09/28/[address] [address] (315)- - White Blood Count 8.4 10 [...] 36.0-66.0 Lymph % 14.9 % Low 24.0-44.0 [place] % 11.0 % High 2.0-8.0 Eos % 5.1 % High 0.0-3.0 Baso % 1.0 % Normal 0.0-1.0 Immature Granulocyte % 0.2 % Normal 0-3.0 Nucleated Red Blood Cell % 0.0 % Normal 0-0 Neutrophils # 5.7 10 Normal 1.5-8.5 Lymph # 1.3 10 Low 1.5-5.0 [place] # 0.9 10 High 0.0-0.8 Eos # [...] CLUMPING. Procedures Date Code Description Status 01/24/2021 29687 X-Ray Shoulder Complete Complete d 01/03/2021 10619 Office/Outpatient Established Lo w MDM 20-29 Min Completed 01/03/2021 59362 X-Ray Shoulder Complete Complete d 12/06/2020 61732 Office/Outpatient Established Lo w MDM 20-29 Min Completed 12/06/2020 60659 X-Ray Shoulder Complete Complete d 11/29/2020 37898 Office/Outpatient New Moderate M DM 45-59 Minutes Completed Medical Devices Description No Information Available Encounters Type Date Location Provider Dx Diagnosis Office Visit 01/03/2021 11:15a YADIEL Aggarwal S42.295D Oth nondisp fx of upr end l tara, melanie for fx w routn heal Office Visit 12/06/2020 [place] S42.295 D Oth nondisp fx of upr end l tara, subs for fx w ирина heal Office Visit 11/29/2020 9:00a YADIEL Aggarwal S42.295A Oth nondisp fx of upper end [...] subsequent encounter for fracture with routine healing J[place]ICA MerinoC 11/29/2020 S42.295A Other nondisplaced f racture of upper end of left humerus, initial encounter for closed fracture YADIEL Davalos Plan of Treatment 01/24/2021 - YADIEL Davalos* S42.295D Other nondisplaced fracture of upper end of left humerus, subsequent encounter for fracture with routine healing* Follow up:* 2 weeks Lt. shoulder shonna with 3 view xray with IID. Functional Status Description No Information Available Mental Status Description No Information Available Referrals Description No Information Available
--- OUTSIDE RECORDS SUMMARY | 2021-02-05 06:37 | CCD | Continuity of Care Document ---
Author Author DARIO CHO, Duke Kellogg Organization Unknown Address [address] [place] [address] Phone [phone] Care Team Providers Care Disability Counselor Name Role Phone EziodalilaLeslye N.P. AUTM [phone] Problems Active Problems Provider Date Essential hypertension Naresh Haynes MD Onset: 021 Social History Type Date Description Comments Sex Unknown ETOH Use Rarely consumes alcohol 2 a year Tobacco Use Start: Unknown Patient is a current smoker, smo kes every day 1 ppd x50 years Recreational Drug Use Denies Drug Use Allergies, Adverse Reactions, Alerts Description No Known Drug Allergies Medications Active Medications SIG Qnty Indications Ordering Provide r Date Aspirin 81mg Tablets DR 1 by mouth every day Unknown Metformin HCL 1000mg Tablets 1 by mouth twice a day Unknown Docusate Sodium 100mg Capsules 1 by mouth twice a day Unknown Tamsulosin HCL 0.4mg Capsules 2 by mouth every day Unknown Vitamin D3 50mcg (1999 [address]) Chewtab s every day Unknown Metoprolol Tartrate 100mg Tablets twice a day Unknown Digoxin 125mcg Tablets 1 by mouth every day Unknown Immunizations Description No Information Available Vital Signs Date Vital Result Comment 11/14/2020 10:29am BP Systolic 129 mmHg BP Diastolic 90 mmHg Body Temperature 97.6 F Height 68 inches 5'8" Weight 182.00 lb BMI (Body Mass Index) 27.7 kg/m2 [place] Body Weight 154 lb Weight 82.555 kg BSA (Body Surface Area) 1.96 m2 Results Description No Information Available Procedures Description No Information Available Medical Devices Description No Information Available Encounters Description No Information Available Assessments Date Code Description Provider 11/14/2020 Z86.010 History of adenomatous polyp of colon Naresh Haynes MD 11/14/2020 Z12.11 Encounter for screening for keiry gnant neoplasm of colon Naresh Haynes MD Plan of Treatment Future Appointment(s):* 02/18/2021 11:15 am - YADIEL Sim at [facility] * 02/05/2021 7:30 am - Naresh Haynes MD at [facility] 11/14/2020 - Naresh Haynes MD* Z86.010 History of adenomatous polyp of colon* Comments:* Patient here to discuss colonoscopy. He is not having any specific symptoms that require urgent or emergent colonoscopy. He does have a prior colonoscopy that was done in 2012 that I found in [facility] and they remove adenomatous polyps at that time. We will perform surveillance colonoscopy.I discussed with him how to perform a split dose bowel prepI discussed with the patient the details of the proposed procedure, the benefits of performing the procedure, the most common risks on doing the procedure. This may include risks of abdominal cramps, pain, vomiting with bowel prep as well as dehydration, risks of bleeding significant enough to landing back in the hospital, perforation that may require operative intervention even colostomy due to the colonoscopy as well as risks for the IV sedation. I have given him a chance to ask questions, voice out concerns. Patient has agreed to proceed * Z12.11 Encounter for screening for malignant neoplasm of colon Functional Status Description No Information Available Mental Status Description No Information Available Referrals Refer to Reason for Referral Status Appt Date Naresh Haynes MD COLONOSCOPY Scheduled 10/03/2020 [address] [place], [place] [id number] [phone]
--- OUTSIDE RECORDS SUMMARY | 2021-02-05 06:38 | CCD ---
Author Author [facility] Organization [facility] Address Unknown Phone Unavailable Care Team Providers Care Retort Forker Name Role Phone Bryce Worthington MD Unavailable Unavailable Elin, Bryce Gutierrez MD Unavailable Unavailable Bryce Worthington MD Unavailable Unavailable XebartoloerBryce MD Unavailable Unavailable Xeller, Bryce Gutierrez MD Unavailable Unavailable XellerBryce MD Unavailable Unavailable Duckworth, Yara HAND TUFTER Unavailable Unavailable Duckworth, Yara HAND TUFTER Unavailable Unavailable Duckworth, Yara HAND TUFTER Unavailable Unavailable Duckworth, Yara HAND TUFTER Unavailable Unavailable Duckworth, Yara HAND TUFTER Unavailable Unavailable Duckworth, Yara HAND TUFTER Unavailable Unavailable Duckworth, Yara HAND TUFTER Unavailable Unavailable Duckworth, Yara HAND TUFTER Unavailable Unavailable Duckworth, Yara HAND TUFTER Unavailable Unavailable Duckworth, Yara HAND TUFTER Unavailable Unavailable Duckworth, Yara HAND TUFTER Unavailable Unavailable Duckworth, Yara HAND TUFTER Unavailable Unavailable Duckworth, Yara HAND TUFTER Unavailable Unavailable Natalie Her, PA-C Unavailable Unavailabl e Natalie Her, PA-C Unavailable Unavailabl e Natalie Her, PA-C Unavailable Unavailabl e Natalie Her, PA-C Unavailable Unavailabl e Natalie Her, PA-C Unavailable Unavailabl e Natalie Her, PA-C Unavailable Unavailabl e Natalie Her, PA-C Unavailable Unavailabl e Natalie Her MPAS, PA-C Unavailable Unavailabl e Fish, [facility], PA-C Unavailable Unavailabl e Fish, [facility], PA-C Unavailable Unavailabl e Fish, [facility], PA-C Unavailable Unavailabl e Fish, [facility], PA-C Unavailable Unavailabl e Fish, [facility], PA-C Unavailable Unavailabl e Fish, [facility], PA-C Unavailable Unavailabl e Fish, [facility], PA-C Unavailable Unavailabl e Fish, [facility], PA-C Unavailable Unavailabl e Fish, [facility], PA-C Unavailable Unavailabl e Fish, [facility], PA-C Unavailable Unavailabl e Fish, [facility], PA-C Unavailable Unavailabl e Fish, [facility], PA-C Unavailable Unavailabl e Fish, [facility], PA-C Unavailable Unavailabl e Fish, [facility], PA-C Unavailable Unavailabl e Fish, [facility], PA-C Unavailable Unavailabl e Fish, [facility], PA-C Unavailable Unavailabl e Fish, [facility], PA-C Unavailable Unavailabl e Fish, [facility], PA-C Unavailable Unavailabl e Fish, [facility], PA-C Unavailable Unavailabl e Fish, [facility], PA-C Unavailable Unavailabl e Fish, [facility], PA-C Unavailable Unavailabl e Fish, [facility], PA-C Unavailable Unavailabl e Fish, [facility], PA-C Unavailable Unavailabl e Fish, [facility], PA-C Unavailable Unavailabl e Fish, [facility], PA-C Unavailable Unavailabl e Fish, [facility], PA-C Unavailable Unavailabl e Fish, [facility], PA-C Unavailable Unavailabl e SHANNA, I RADHA PA Unavailable Unavailable DRAZEK, I RADHA PA Unavailable Unavailable DRAZEK, I RADHA PA Unavailable Unavailable DRAZEK, I RADHA PA Unavailable Unavailable DRAZEK, I RADHA PA Unavailable Unavailable DRAZEK, I RADHA PA Unavailable Unavailable DRAZEK, I RADHA PA Unavailable Unavailable DRAZEK, I RADHA PA Unavailable Unavailable DRAZEK, I RADHA PA Unavailable Unavailable DRAZEK, I RADHA PA Unavailable Unavailable DRAZEK, I RADHA PA Unavailable Unavailable DRAZEK, I RADHA PA Unavailable Unavailable DRAZEK, I RADHA PA Unavailable Unavailable DRAZEK, I RADHA PA Unavailable Unavailable DRAZEK, I RADHA PA Unavailable Unavailable DRAZEK, I RADHA PA Unavailable Unavailable DRAZEK, I RADHA PA Unavailable Unavailable DRAZEK, I RADHA PA Unavailable Unavailable DRAZEK, I RADHA PA Unavailable Unavailable DRAZEK, I RADHA PA Unavailable Unavailable DRAZEK, I RADHA PA Unavailable Unavailable DRAZEK, I RADHA PA Unavailable Unavailable DRAZEK, I RADHA PA Unavailable Unavailable DRAZEK, I RADHA PA Unavailable Unavailable DRAZEK, I RADHA PA Unavailable Unavailable DRAZEK, I RADHA PA Unavailable Unavailable DRAZEK, I RADHA PA Unavailable Unavailable DRAZEK, I RADHA PA Unavailable Unavailable DRAZEK, I RADHA PA Unavailable Unavailable DRAZEK, I RADHA PA Unavailable Unavailable Re-disclosure Warning The records that you are about to access may contain information from federally-assisted alcohol or drug abuse programs. If such information is present, then the following federally mandated warning applies: This information has been disclosed to you from records protected by federal confidentiality rules (42 CFR part 2). The federal rules prohibit you from making any further disclosure of this information unless further disclosure is expressly permitted by the written consent of the person to whom it pertains or as otherwise permitted by 42 CFR part 2. A general authorization for the release of medical or other information is NOT sufficient for this purpose. The Federal rules restrict any use of the information to criminally investigate or prosecute any alcohol or drug abuse patient.The records that you are about to access may contain highly sensitive health information, the redisclosure of which is protected by Article 27-F of the [facility] Public Health law. If you continue you may have access to information: Regarding HIV / AIDS; Provided by facilities licensed or operated by the [facility] Office of Mental Health; or Provided by the [facility] Office for People With Developmental Disabilities. If such information is present, then the following [facility] mandated warning applies: This information has been disclosed to you from confidential records which are protected by state law. State law prohibits you from making any further disclosure of this information without the specific written consent of the person to whom it pertains, or as otherwise permitted by law. Any unauthorized further disclosure in violation of state law may result in a fine or fdc sentence or both. A general authorization for the release of medical or other information is NOT sufficient authorization for further disc losure. Allergies and Adverse Reactions Type Description Substance Reaction Status Data Source(s ) No Known Drug Allergies No Known Drug Allergies No Known Drug Aller gies active NETSMART ([facility] ) Family History Family Member Name Family Member Gender Family Member Status Date o f Status Description Data Source(s) Unknown Unknown Problem MEDENT ([facility]) mother,father Unknown Male Problem MEDENT ([facility]) Encounters Encounter Providers Location Date Indications Data Source(s ) OFFICE OUTPATIENT VISIT 15 MINUTES Attender: RADHA COTTO Phys ical Therapy 01/24/2021 03:00:00 PM EDT MEDENT ([facility]) OFFICE OUTPATIENT VISIT 15 MINUTES Attender: RADHA COTTO Phys ical Therapy 01/03/2021 11:15:00 AM EDT MEDENT ([facility]) OFFICE OUTPATIENT VISIT 15 MINUTES Attender: Candi WOOD PA-C Physical Therapy 12/06/2020 08:30:00 AM EDT MEDENT ([facility]) Outpatient Attender: RADHA COTTO Physical Therapy 11/29/2020 0 9:00:00 AM EDT MEDENT ([facility]) [place] [address] [facility] [address] 09/26/2020 12:00:00 AM EDT eCW1 ([facility]) Out[place] [address] [facility] [address] 09/24/2020 12:00:00 AM EDT eCW1 ([facility]) Outpatient Attender: Matt Worthington MD ER-LAB 08/12/2020 10:41:00 AM EDT [facility] Outpatient Attender: Yraa santana 07/11/2020 01:00:00 PM EDT MEDENT ([facility]) 05/30/2020 12:00:00 AM EST - 021 09:44:29 AM EDT NETSMART ([facility]) [place] [address] [facility] [address] 04/29/2020 12:00:00 AM EST eCW1 ([facility]) Unknown [address] [facility] [place] [address] 04/24/2020 12:00:00 AM EST eCW1 ([facility]) Outpatient [address] [facility] [address] 04/17/2020 12:00:00 AM EST eCW1 ([facility]) Unknown [address] [facility] [address] 04/15/2020 12:00:00 AM EST eCW1 ([facility]) Outpatient [address] [facility] [address] 04/10/2020 12:00:00 AM EST eCW1 ([facility]) ([id number]) For Template Perry [address] [place] [address] 04/03/2020 12:00:00 AM EST eCW1 ([facility]) Unknown [address] [facility] [address] 03/28/2020 12:00:00 AM EST eCW1 ([facility]) Unknown [address] [facility] [address] 03/28/2020 12:00:00 AM EST eCW1 ([facility]) (WND NP120) New Patient [address] [place] [address] 03/27/2020 12:00:00 AM EST eCW1 ([facility]) Outpatient [address] [facility] [id number] 03/26/2020 12:00:00 AM EST eCW1 ([facility]) Unknown [address] [facility] [place] [address] 03/18/2020 12:00:00 AM EST eCW1 ([facility]) [place] [address] [facility] [address] 02/26/2020 12:00:00 AM EST eCW1 ([facility]) Postop visit [address] [facility], [place] [address] 02/22/2020 12:00:00 AM EST eCW1 ([facility]) [place] [address] [facility] [address] 02/22/2020 12:00:00 AM EST eCW1 ([facility]) Outpatient [address] [facility], [place] [address] 02/02/2020 12:00:00 AM EDT eCW1 ([facility]) Medications Medication Brand Name Start Date Product Form Dose Route Admi nistrative Instructions Pharmacy Instructions Status Indications Reaction Description Data Source(s) Acetaminophen 300 MG / Codeine Phosphate 30 MG Oral Ta blet 300-30 mg ACETAMINOPHEN WITH CODEINE 12/06/2020 12:00:00 AM EDT tablet 30 TAKE ONE TABLET BY MOUTH EVERY 6 HOURS NEEDED FOR PAIN, MAXIMUM DAILY DOSE = 4 TABLETS TAKE ONE TABLET BY MOUTH EVERY 6 HOURS A S NEEDED FOR PAIN, MAXIMUM DAILY DOSE = 4 TABLETS SOLD: 12/06/2020 [facility] Acetaminophen 300 MG / Codeine Phosphate 30 MG Oral Tablet [Tylenol with Codeine] Tylenol With Codeine #3 12/06/2020 12:00:00 AM EDT active MEDENT ([facility]) Acetaminophen 300 MG / Codeine Phosphate 30 MG Oral Ta blet 300-30 mg ACETAMINOPHEN WITH CODEINE 11/27/2020 12:00:00 AM EDT tablet 12 TAKE ONE TABLET BY MOUTH EVERY 6 HOURS NEEDED FOR PAIN MAXIMUM DAILY DOSE = 4 TAKE ONE TABLET BY MOUTH EVERY 6 HOURS NEEDED FOR PAIN MAXIMUM DAILY DOSE = 4 SOLD: 11/27/2020 [facility] 90 mcg/actuation 09/29/2020 12:00:00 AM EDT HFA aerosol inha ler 8 INHALE 2 PUFFS EVERY 6 TO 8 HOURS NEEDED CONGESTION INHALE 2 PUFFS EVERY 6 TO 8 HOURS NEEDED CONGESTION SOLD: 09/29/2020 [facility] 2.5 mg /3 mL (0.083 %) 09/28/2020 12:00:00 AM EDT solu tion for nebulization 150 INHALE CONTENTS OF 1 VIAL VIA NEBULIZER EVERY 4 HOURS NEEDED WHEEZING INHALE CONTENTS OF 1 VIAL VIA NEBULIZER EVERY 4 HOURS NEEDED WHEEZING SOLD: 09/28/2020 [facility] 500 mg 09/26/2020 12:00:00 AM EDT tablet 10 TAKE ONE TABLET BY MOUTH EVERY DAY TAKE ONE TABLET BY MOUTH EVERY DAY SOLD: 09/26/2020 [facility] Levofloxacin 500 MG Oral Tablet Levaquin 500 MG Levaquin 500 MG 09/26/2020 12:00:00 AM EDT 1.0 {tablet} active Le vaquin 500 MG eCW1 ([facility]) Polymyxin B-Trimethoprim 21823-9.1 UNIT/ML-% Polymyxin B-Tri methoprim 07/11/2020 01:00:00 AM EDT completed NETSMART ([facility]) 10,000 unit- 1 mg/mL 07/11/2020 12:00:00 AM EDT drops 10 INSTILL ONE DROP INTO BOTH EYES FOUR TIMES A DAY DIRECTED FOR 7 DAYS INSTILL ONE DROP INTO BOTH EYES FOUR TIMES A DAY DIRECTED FOR 7 DAYS SOLD: 07/11/2020 [facility] Polymyxin B 44374 UNT/ML / Trimethoprim 1 MG/ML Ophtha lmic Solution Polymyxin B Sulfate/Trimethoprim Sulfate 07/11/2020 12:00:00 AM EDT OPHT HALMIC active MEDENT ([facility]) BuPROPion HCl ER (Smoking Det) 150 MG BuPROPion HCl ER (Smok ing Det) 05/31/2020 12:00:00 AM EST completed NETSMART ([facility]) Tylenol Extra Strength 500 MG Tylenol Extra Strength 05/30/2020 12:00:00 AM EST completed NETSMA RT ([facility]) Metoprolol Tartrate 100 MG Metoprolol Tartrate 05/30/2020 12:00:00 AM EST completed NETSMART ([facility]) Atorvastatin Calcium 20 MG Atorvastatin Calcium 05/30/2020 12:00:00 A M EST completed NETSMART ( [facility]) Furosemide 40 MG Furosemide 05/30/2020 12:00:00 AM EST completed NETSMART ([facility] ) MetFORMIN HCl 1000 MG MetFORMIN HCl 05/30/2020 12:00:00 AM EST completed NETSMART ([facility]) Vitamin D3 1000 UNIT Vitamin D3 05/30/2020 12:00:00 AM EST completed NETSMART ([facility]) Tamsulosin HCl 0.4 MG Tamsulosin HCl 05/30/2020 12:00:00 AM EST completed NETSMART ([facility]) Aspirin Aspirin 05/30/2020 12:00:00 AM EST 81.0 {mg} co mpleted NETSMART ([facility]) Digoxin 125 MCG Digoxin 05/30/2020 12:00:00 AM EST completed NETSMART ([facility]) Docusate Sodium 100 MG Docusate Sodium 05/30/2020 12:00:00 AM EST completed NETSMART ([facility]) Lisinopril 2.5 MG Lisinopril 05/30/2020 12:00:00 AM EST completed NETSMART ([facility] ) 750 mg 04/18/2020 12:00:00 AM EST tablet 4 TAKE ONE TABLET BY MOUTH EVERY DAY FOR UTI TAKE ONE TABLET BY MOUTH EVERY DAY FOR UTI SOLD: 04/18/2020 [facility] Ciprofloxacin 500 MG Oral Tablet [Cipro] Cipro 500 MG Cipro 500 MG 03/28/2020 12:00:00 AM EST 1.0 {tablet} suspended Cipro 500 MG eCW1 ([facility]) Ciprofloxacin 500 MG Oral Tablet [Cipro] Cipro 500 MG Cipro 500 MG 03/28/2020 12:00:00 AM EST 1.0 {tablet} active Ci pro 500 MG eCW1 ([facility]) Ciprofloxacin 500 MG Oral Tablet [Cipro] Cipro 500 MG Cipro 500 MG 03/28/2020 12:00:00 AM EST 1.0 {tablet} active Ci pro 500 MG eCW1 ([facility]) Ciprofloxacin 500 MG Oral Tablet [Cipro] Cipro 500 MG Cipro 500 MG 03/28/2020 12:00:00 AM EST 1.0 {tablet} active Ci pro 500 MG eCW1 ([facility]) Ciprofloxacin 500 MG Oral Tablet [Cipro] Cipro 500 MG Cipro 500 MG 03/28/2020 12:00:00 AM EST 1.0 {tablet} active Ci pro 500 MG eCW1 ([facility]) Ciprofloxacin 500 MG Oral Tablet [Cipro] Cipro 500 MG Cipro 500 MG 03/28/2020 12:00:00 AM EST 1.0 {tablet} suspended Cipro 500 MG eCW1 ([facility]) Ciprofloxacin 500 MG Oral Tablet [Cipro] Cipro 500 MG Cipro 500 MG 03/28/2020 12:00:00 AM EST 1.0 {tablet} active Ci pro 500 MG eCW1 ([facility]) Ciprofloxacin 500 MG Oral Tablet [Cipro] Cipro 500 MG Cipro 500 MG 03/28/2020 12:00:00 AM EST 1.0 {tablet} active Ci pro 500 MG eCW1 ([facility]) Ciprofloxacin 500 MG Oral Tablet [Cipro] Cipro 500 MG Cipro 500 MG 03/28/2020 12:00:00 AM EST 1.0 {tablet} active Ci pro 500 MG eCW1 ([facility]) 500 mg 03/28/2020 12:00:00 AM EST tablet 20 TAKE ONE TABLET BY MOUTH EVERY 12 HOURS FOR 10 DAYS TAKE ONE TABLET BY MOUTH EVERY 12 HOURS FOR 10 DAYS SO LD: 03/28/2020 [facility] Ciprofloxacin 500 MG Oral Tablet [Cipro] Cipro 500 MG Cipro 500 MG 03/28/2020 12:00:00 AM EST 1.0 {tablet} active Ci pro 500 MG eCW1 ([facility]) Ciprofloxacin 500 MG Oral Tablet [Cipro] Cipro 500 MG Cipro 500 MG 03/28/2020 12:00:00 AM EST 1.0 {tablet} active Ci pro 500 MG eCW1 ([facility]) Ciprofloxacin 500 MG Oral Tablet [Cipro] Cipro 500 MG Cipro 500 MG 03/28/2020 12:00:00 AM EST 1.0 {tablet} active Ci pro 500 MG eCW1 ([facility]) NITROFURANTOIN, MACROCRYSTALS 25 MG / Ni trofurantoin, Monohydrate 75 MG Oral Capsule [Macrobid] Macrobid 100 MG Macrobid 100 MG 03/26/2020 12:00:00 AM EST active Macrobid 100 MG eCW1 ([facility]) NITROFURANTOIN, MACROCRYSTALS 25 MG / Ni trofurantoin, Monohydrate 75 MG Oral Capsule [Macrobid] Macrobid 100 MG Macrobid 100 MG 03/26/2020 12:00:00 AM EST active Macrobid 100 MG eCW1 ([facility]) NITROFURANTOIN, MACROCRYSTALS 25 MG / Ni trofurantoin, Monohydrate 75 MG Oral Capsule [Macrobid] Macrobid 100 MG Macrobid 100 MG 03/26/2020 12:00:00 AM EST suspended Macrobid 100 MG eCW1 ( [facility]) NITROFURANTOIN, MACROCRYSTALS 25 MG / Ni trofurantoin, Monohydrate 75 MG Oral Capsule [Macrobid] Macrobid 100 MG Macrobid 100 MG 03/26/2020 12:00:00 AM EST suspended Macrobid 100 MG eCW1 ( [facility]) NITROFURANTOIN, MACROCRYSTALS 25 MG / Ni trofurantoin, Monohydrate 75 MG Oral Capsule [Macrobid] Macrobid 100 MG Macrobid 100 MG 03/26/2020 12:00:00 AM EST active Macrobid 100 MG eCW1 ([facility]) NITROFURANTOIN, MACROCRYSTALS 25 MG / Ni trofurantoin, Monohydrate 75 MG Oral Capsule [Macrobid] Macrobid 100 MG Macrobid 100 MG 03/26/2020 12:00:00 AM EST active Macrobid 100 MG eCW1 ([facility]) 100 mg 03/26/2020 12:00:00 AM EST capsule 28 TAKE ONE CAPSULE BY MOUTH TWICE A DAY FOR 14 DAYS TAKE ONE CAPSULE BY MOUTH TWICE A DAY FOR 14 DAYS SOLD : 03/26/2020 [facility] NITROFURANTOIN, MACROCRYSTALS 25 MG / Ni trofurantoin, Monohydrate 75 MG Oral Capsule [Macrobid] Macrobid 100 MG Macrobid 100 MG 03/26/2020 12:00:00 AM EST active Macrobid 100 MG eCW1 ([facility]) NITROFURANTOIN, MACROCRYSTALS 25 MG / Ni trofurantoin, Monohydrate 75 MG Oral Capsule [Macrobid] Macrobid 100 MG Macrobid 100 MG 03/26/2020 12:00:00 AM EST active Macrobid 100 MG eCW1 ([facility]) NITROFURANTOIN, MACROCRYSTALS 25 MG / Ni trofurantoin, Monohydrate 75 MG Oral Capsule [Macrobid] Macrobid 100 MG Macrobid 100 MG 03/26/2020 12:00:00 AM EST active Macrobid 100 MG eCW1 ([facility]) NITROFURANTOIN, MACROCRYSTALS 25 MG / Ni trofurantoin, Monohydrate 75 MG Oral Capsule [Macrobid] Macrobid 100 MG Macrobid 100 MG 03/26/2020 12:00:00 AM EST active Macrobid 100 MG eCW1 ([facility]) NITROFURANTOIN, MACROCRYSTALS 25 MG / Ni trofurantoin, Monohydrate 75 MG Oral Capsule [Macrobid] Macrobid 100 MG Macrobid 100 MG 03/26/2020 12:00:00 AM EST active Macrobid 100 MG eCW1 ([facility]) NITROFURANTOIN, MACROCRYSTALS 25 MG / Ni trofurantoin, Monohydrate 75 MG Oral Capsule [Macrobid] Macrobid 100 MG Macrobid 100 MG 03/26/2020 12:00:00 AM EST active Macrobid 100 MG eCW1 ([facility]) 10 mg 03/18/2020 12:00:00 AM EST tablet 30 TAKE 4 TABLETS BY MOUTH ONCE DAILY FOR 3 DAYS THEN 3 TABLETS ONCE DAILY FOR 3 DAYS THEN 2 TABLETS ONCE DAILY FOR 3 DAYS THEN 1 TABLET ONCE DAILY FOR 3 DAYS AND STOP TAKE 4 TABLETS BY MOUTH ONCE DAILY FOR 3 DAYS THEN 3 TABLETS ONCE DAILY FOR 3 DAYS THEN 2 TABLETS ONCE DAILY FOR 3 DAYS THEN 1 TABLET ONCE DAILY FOR 3 DAYS AND STOP SOLD: 03/18/2020 [facility] 40 mg 03/18/2020 12:00:00 AM EST tablet 30 TAKE ONE TABLET BY MOUTH EVERY DAY TAKE ONE TABLET BY MOUTH EVERY DAY SOLD: 03/19/2020 [facility] 20 mEq 03/18/2020 12:00:00 AM EST tablet extended release 20 TAKE TWO TABLETS BY MOUTH EVERY DAY TAKE TWO TABLETS BY MOUTH EVERY DAY SOLD: 03/19/2020 [facility] 500 mg 02/16/2020 12:00:00 AM EDT tablet 14 TAKE ONE TABLET BY MOUTH TWICE A DAY FOR 7 DAYS TAKE ONE TABLET BY MOUTH TWICE A DAY FOR 7 DAYS SOLD: 02/16/2020 [facility] 875-125 mg 02/09/2020 12:00:00 AM EDT tablet 20 TAKE ONE TABLET BY MOUTH TWICE A DAY FOR 10 DAYS TAKE ONE TABLET BY MOUTH TWICE A DAY FOR 10 DAYS SOLD: 02/09/2020 [facility] 100 mg 01/11/2020 12:00:00 AM EDT capsule 90 TAKE ONE CAPSULE BY MOUTH THREE TIMES A DAY TAKE ONE CAPSULE BY MOUTH THREE TIMES A DAY SOLD: 01/11/2020 [facility] Insurance Providers Payer name Policy type / Coverage type Policy ID Covered democrat ID Covered democrat's relationship to perry Policy Perry Plan Information [facility] (pr) [facility] Part B [id number] Self [id number] [facility] (pr) [facility] Part B [id number] Self [id number] [facility] (pr) [facility] Part B [id number] Self [id number] [facility] (pr) [facility] Part B [id number] Self [id number] [facility] [facility] (pr) [facility] Part B [id number] Self [id number] [employer] (pr) [facility] Part B [id number] 9446.0 Self [id number] [employer] (pr) [employer] Part B [id number] 9446.0 Self [id number] [employer] (pr) Med[employer]ap Part B [id number] 9446.0 Self [id number] [employer] (pr) Medigap Part B [id number] 9446.0 Self [id number] [employer] (pr) Medigap Part B [id number] 9446.0 Self [id number] [facility] (TFL) Medigap Part B [id number] Self [id number] Medicare [place] Medicare Primary [id number] 0 [id number] [facility] (TFL) Medigap Part B [id number] Self [id number] [facility] (TFL) Medigap Part B [id number] Self [id number] Medicare [place] Medicare Primary [id number] Self [id number] [facility] (TFL) Medigap Part B [id number] Self [id number] Medicare [place] Medicare Primary [id number] 0 [id number] Medicare [place] Medicare Primary [id number] Self [id number] [facility] (TFL) Medigap Part B [id number] Self [id number] Medicare [place] Medicare Primary [id number] 0 [id number] [facility] (pr) Medigap Part B [id number].1944 6.0 Self [id number] [facility] Medigap Part B [id number] 9.1767.35119.0 Self [id number] Medicare Natl Gov't Servi Medicare Primary [id number] 2.0.1.942978.3.227.99.1767.39529.0 Self [id number] For Life [facility] Medigap Part B [id number] Self [id number] [facility] Medigap Part B [id number] 9.1767.98214.0 Self [id number] Medicare Natl Gov't Servi Medicare Primary [id number] .[id number] Self [id number] For Life WPS Medigap Part B [id number] [id number] Self [id number] [facility] Medigap Part B [id number] 9.1767.00155.0 Self [id number] Medicare Natl Gov't Servi Medicare Primary [id number] Self [id number] [facility] (pr) Medigap Part B [id number] Self [id number] [facility] Medigap Part B [id number] Self [id number] For Life WPS Medigap Part B [id number] .[id number] Self [id number] Medicare Natl Gov't Servi Medicare Primary [id number] Self [id number] [employer] Medigap Part B [id number] .[id number] 70.0 Self [id number] [employer] PPO O [id number] S [id number] MEDICARE C [id number] S [id number] A MEDICARE [id number] SP [id number] A [employer] [id number] SP [id number] For Life WPS Medigap Part B [id number] Self [id number] Medicare Natl Gov't Servi Medicare Primary [id number] Self [id number] For Life WPS Medigap Part B [id number] Self [id number] Medicare Natl Gov't Servi Medicare Primary [id number] Self [id number] For Life WPS Medigap Part B [id number] Self [id number] Medicare Natl Gov't Servi Medicare Primary [id number] Self [id number] For Life WPS Medigap Part B [id number] Self [id number] Medicare Natl Gov't Servi Medicare Primary [id number] Self [id number] For Life WPS Medigap Part B [id number] Self [id number] Medicare Natl Gov't Servi Medicare Primary [id number] Self [id number] For Life [employer]PS Medigap Part B [id number] Self [id number] Medicare Natl Gov't Servi Medicare Primary [id number] Self [id number] For Life [employer]PS Medigap Part B [id number] Self [id number] Medicare Natl Gov't Servi Medicare Primary [id number] Self [id number] For Life [employer]PS Medigap Part B [id number] Self [id number] Medicare Natl Gov't Servi Medicare Primary [id number] Self [id number] For Life WPS Medigap Part B [id number] Self [place] Medigap Part B [id number] Self Medicare Natl Gov't Servi Medicare Primary [id number] Self MEDICARE [id number] SP [id number] A PGBA [facility] [id number] SP [id number] [facility] SA[facility] [id number] SP [id number] [employer] [facility] [id number] SP [id number] 'S ADMINISTRATION [id number] SP [id number] [facility] [id number] SP [id number] [id number] SP [id number] MEDICARE [id number] SP [id number] V60 FOR LIFE [id number] SP [id number] MEDICARE [id number] SP [id number] [facility] [id number] SP [id number] [facility] [id number] S [id number] [facility] PART B C [id number] S [id number] [facility] [id number] SP [id number] [facility] [id number] SP [id number] UMR O [id number] S [id number] MEDICARE C [id number] S [id number] V60 FOR LIFE O [id number] S [id number] For Life [employer]PS Medigap Part B [id number] Self [id number] U[facility]/[employer] Medigap Part B [id number] Self [id number] Medicare Natl Gov't Servi Medicare Primary [id number] Self [id number] For Life WPS [facility] Part B [id number] Self [id number] Umr/[facility] Part B [id number] Self [id number] Medicare Natl Gov't Servi Medicare Primary [id number] Self [id number] For Life WPS [facility] Part B [id number] Self [id number] Problems, Conditions, and Diagnoses Code Display Name Description Problem Type Effective Dates Data Source(s) B96.89 Other specified bacterial ag ents as the cause of diseases classified elsewhere OT BACTERIAL AGENTS THE CAUSE OF DISEASES CLAS Diagnosis 08/12/2020 10:41:00 AM EDT [facility] R82.998 OTHER ABNORMAL FINDINGS IN URINE OTHER ABNORMAL FINDINGS IN URINE Diagnosis 08/12/2020 10:41:00 AM EDT [facility] E11.9 Type 2 diabetes mellitus without complic ations TYPE 2 DIABETES MELLITUS WITHOUT COMPLICATIONS Diagnosis 08/12/2020 10:41:00 AM [id number] Type 2 diabetes mellitus Type 2 diabetes mellitus Prob maura 12/02/2020 12:00:00 AM EDT HUE ([facility]) [id number] Essential hypertension Essential hypertension Problem 11/14/2020 12:00:00 AM EDT HUE ([facility]) Z47.89 Encounter for other orthopedic aftercare Encounter for other orthopedic aftercare Problem 05/28/2020 12:00:00 AM EST ALFREDITO ([facility]) I73.9 [id number] Peripheral vascular disease Problem 03/27/20 12:00:00 AM EST eCW1 ([facility]) I70.233 [id number] 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 Problem 03/27/2020 12:00:00 AM EST eCW1 ([facility]) L97.812 [id number] Non-pressure chronic ulcer of other part of right lower leg with fat layer exposed Problem 03/27/2020 12:00:00 AM EST eCW1 ([facility]) Surgeries/Procedures Procedure Description Date Indications Data Source(s) RADEX SHOULDER COMPLETE MINIMUM 2 VIEWS 01/24/2021 12: 00:00 AM EDT MEDENT ([facility] ) OFFICE OUTPATIENT VISIT 15 MINUTES 01/24/2021 12:00:00 AM EDT MEDENT ([facility] ) RADEX SHOULDER COMPLETE MINIMUM 2 VIEWS 01/03/2021 12: 00:00 AM EDT MEDENT ([facility] ) OFFICE OUTPATIENT VISIT 15 MINUTES 01/03/2021 12:00:00 AM EDT MEDENT ([facility] ) RADEX SHOULDER COMPLETE MINIMUM 2 VIEWS 12/06/2020 12: 00:00 AM EDT MEDENT ([facility] ) OFFICE OUTPATIENT VISIT 15 MINUTES 12/06/2020 12:00:00 AM EDT MEDENT ([facility] ) OFFICE OUTPATIENT NEW 45 MINUTES 11/29/2020 12:00:00 A M EDT MEDENT ([facility] ) CLTX PROXIMAL HUMERAL FRACTURE W/O MANIPULATION 2020 12:00:00 AM EDT MEDENT ([facility] ) OFFICE OUTPATIENT NEW 45 MINUTES 11/29/2020 12:00:00 A M EDT MEDENT ([facility] ) uro PVR (Post Voiding Residual) Bladder Scan 12:00:00 AM EDT eCW1 ([facility]) FINE NEEDLE ASPIRATION W/O IMAGING GUIDANCE 04/17/2020 12:00:00 AM EST eCW1 ([facility]) FINE NEEDLE ASPIRATION W/O IMAGING GUIDANCE 04/10/2020 12:00:00 AM EST eCW1 ([facility]) FINE NEEDLE ASPIRATION W/O IMAGING GUIDANCE 04/03/2020 12:00:00 AM EST eCW1 ([facility]) FINE NEEDLE ASPIRATION W/O IMAGING GUIDANCE 03/27/2020 12:00:00 AM EST eCW1 ([facility]) uro PVR (Post Voiding Residual) Bladder Scan 0 12:00:00 AM EST eCW1 ([facility]) uro PVR (Post Voiding Residual) Bladder Scan 0 12:00:00 AM EDT eCW1 ([facility]) Results ID Date Data Source [id number] 09/28/2020 01:20:00 PM EDT [facility] Name Value Range Interpretation Code Description Data Jayna rce(s) Supporting Document(s) Respiratory Panel Laboratory test result [facility] ([facility]) This respiratory PCR panel detects Influ hayden A H1, H3 and 2009 H1 viruses, Influenza B virus, Resp iratory Syncytial Virus, Human metapneumovirus, Parainfluenza virus 1, 2, 3 and 4, Adenovirus, Rhinovirus/Enterovirus, Coronavirus HKU1, NL63, OC43, 229E and SARS-CoV-2 (COVID 19), Bordetella pertussis, Bordetella parapertussis, Mycoplasma pneumoniae and Chlamydia pneumoniae. NEGATIVE by MULTIPLEXED NUCLEIC ACID PCR SARS-CoV-2 (COVID 19) NEGATIVE - SARS-CoV-2 (COVID19) ID Date Data Source [id number] 09/28/2020 01:20:00 PM EDT [facility] Name Value Range Interpretation Code Description Data Jayna rce(s) Supporting Document(s) SARS-CoV-2 (COVID 19) NEGATIVE - SARS-CoV-2 (COVID19) [facility] This lab was ordered by [facility] a nd reported by [facility]. ID Date Data Source [id number] 09/28/2020 01:19:00 PM EDT [facility] Name Value Range Interpretation Code Description Data Jayna rce(s) Supporting Document(s) Red Blood Count 4.92 10 4.30-6.10 MEDENT ([facility]) White Blood Count 8.4 10 4.0-10.0 MEDENT ([facility]) Hemoglobin 15.4 g/dL 13.5-17.5 MED[facility] ([facility]) Hematocrit 46.0 % 42.0-52.0 MED[facility] ([facility]) Mean Corpuscular Hemoglobin 31.3 pg 27.0-33.0 MEDENT ([facility]) Mean Corpuscular Volume 93.5 fl 80.0-96.0 M EDENT ([facility]) Red Cell Distribution Width 13.3 % 11.5-14.5 MEDENT ([facility]) Platelet Count, Automated Laboratory test result 150-450 MED[facility] ([facility]) UNABLE TO REPORT A PLATELET COUNT DUE TO CLUMPING. Mean Corpuscular HGB Conc 33.5 g/dL 32.0-36.5 MED[facility] ([facility]) Neutrophils % 67.8 % 36.0-66.0 MED[facility] ([facility]) Lymph % 14.9 % 24.0-44.0 [facility] ([facility]) [place] % 11.0 % 2.0-8.0 [facility] ([facility]) Eos % 5.1 % 0.0-3.0 [facility] ([facility]) Baso % 1.0 % 0.0-1.0 [facility] ([facility]) Immature Granulocyte % 0.2 % 0-3.0 MEDENT ([facility]) Nucleated Red Blood Cell % 0.0 % 0-0 MED ENT ([facility]) Neutrophils # 5.7 10 1.5-8.5 MEDENT ([facility]) [place] # 0.9 10 0.0-0.8 [facility] ([facility] Lymph # 1.3 10 1.5-5.0 MED[facility] ([facility]) Baso # 0.1 10 0.0-0.2 [facility] ([facility]) Eos # 0.4 10 0.0-0.5 [facility] ([facility]) ID Date Data Source [id number] 09/28/2020 01:19:00 PM EDT MEDENT ([facility]) Name Value Range Interpretation Code Description Data Jayna rce(s) Supporting Document(s) Ast/Sgot 16 U/L 7-37 [facility] ([facility] Alt/SGPT 37 U/L 12-78 MED[facility] ([facility]) Bilirubin,Total 0.3 mg/dL 0.2-1.0 MED[facility] ([facility]) Alkaline Phosphatase 102 U/L 45-117 MED[facility] ([facility]) Bilirubin,Direct 0.1 mg/dL 0.0-0.2 MED[facility] ([facility]) Albumin 3.4 GM/DL 3.2-5.2 MED[facility] ([facility]) Total Protein 6.6 GM/DL 6.4-8.2 MEDENT ([facility]) Albumin/Globulin Ratio 1.1 [facility] ([facility]) ID Date Data Source [id number] 09/24/2020 12:00:00 AM EDT eCW1 ([facility]) Name Value Range Interpretation Code Description Data Jayna rce(s) Supporting Document(s) UA URINALYSIS eCW1 ([facility]) ID Date Data Source [id number] 08/15/2020 02:17:00 PM EDT [facility] Name Value Range Interpretation Code Description Data Jayna rce(s) Supporting Document(s) ORGANISM [facility] COLONY COUNT N [facility] ID Date Data Source [id number] 08/12/2020 01:18:00 PM EDT [facility] Name Value Range Interpretation Code Description Data Jayna rce(s) Supporting Document(s) URINE COLOR Yellow N [facility] UAPR Turbid N [facility] UGLU Negative NEGATIVE N [facility] URINE BILIRUBIN Negative NEGATIVE N [facility] UKET Trace NEGATIVE [facility] USG 1.025 1.010-1.025 [facility] UBLO 1+ NEGATIVE [facility] UpH 5.0 5.0-8.0 N [facility] UPRO 1+ Negative N [facility] UUB 0.2 mg/dL 0.2-1.0 N [facility] UNIT Positive Negative N [facility] A URINE CULTURE HAS BEEN ADDED TO THIS S PECIMEN ULEU 2+ Negative N [facility] ID Date Data Source [id number] 08/12/2020 01:18:00 PM EDT [facility] Name Value Range Interpretation Code Description Data Jayna rce(s) Supporting Document(s) URINE RBC 6-10 RBCs/HPF NONE SEEN [facility] URINE WBC >200 WBCs/HPF NONE SEEN [facility] A URINE [facility] BACTERIA Many NONE SEEN [facility] l A URINE [facility]ULTURE HAS BEEN ADD[facility] URINE EPI. Rare NONE SEEN [facility] ID Date Data Source [id number] 08/12/2020 01:05:00 PM EDT [facility] Name Value Range Interpretation Code Description Data Jayna rce(s) Supporting Document(s) GLU 181 mg/dL 70-110 H [facility] Patients taking Sulfasalazine may have f alsely depressedGlucose levels. Patients taking Sulfapyridine may havefalsely elevated Glucose levels. Patients should be drawnfor Glucose before the initial administration of eitherdrug. BUN 13 mg/dL 7-23 [facility] CRE 0.679 mg/dL 0.500-1.300 [facility] GFR > 60 mL/min [facility] CHLORIDE 106 mmol/L 99-110 [facility] NA 141 mmol/L 136-147 [facility] POTASSIUM 5.2 mmol/L 3.5-5.1 H [facility] TCO2 33 mmol/L 20-33 [facility] ANION GAP 7.2 10.0-20.0 L [facility] CA 9.6 mg/dL 8.3-10.7 [facility] ALKALINE PHOS 117 U/L 45-117 [facility] TP 6.9 g/dL 6.0-7.8 [facility] ALB 3.6 g/dL 3.5-5.0 [facility] ESRD Dialysis patient Albumin reference range: 2.9-4.4 g/dL GL 3.3 g/dL 2.3-3.5 [facility] A/G 1.1 1.0-2.5 [facility] T. BILIRUBIN 0.4 mg/dL 0.1-1.1 [facility] The Dimension [place] Total Bilirubin is n ot recommended forpatients undergoing treatment with eltrombopag (Promacta)due to the potential for falsely elevated results. ALTI 64 U/L 6-54 H [facility] Patients taking Sulfasalazine and/or Sul fapyridine may havefalsely depressed ALT levels. Patients should be drawn forALT before the initial administration of either drug. AST 27 U/L 8-40 N [facility] Patients taking Sulfasalazine and/or Sul fapyridine may havefalsely depressed AST levels. Patients should be drawn forAST before the initial administration of either drug. ID Date Data Source URINE CULTURE 03/26/2020 12:00:00 AM EST eCW1 ([facility]) Name Value Range Interpretation Code Description Data Jayna rce(s) Supporting Document(s) URINE CULTURE eCW1 ([facility]) ID Date Data Source [id number] 02/11/2020 10:45:00 AM EDT [facility] Name Value Range Interpretation Code Description Data Jayna rce(s) Supporting Document(s) SARS coronavirus 2 RNA [facility] This lab was ordered by [facility] and reported by [facility]. Procedure Social History Code Duration Value Status Description Data Source(s ) Smoking 09/24/2020 12:00:00 AM EDT Current Smoker completed Curre nt Smoker eCW1 ([facility]) Smoking 09/24/2020 12:00:00 AM EDT Current Smoker completed Curre nt Smoker eCW1 ([facility]) Smoking 04/17/2020 12:00:00 AM EST Current Smoker completed Curre nt Smoker eCW1 ([facility]) Smoking 04/17/2020 12:00:00 AM EST Current Smoker completed Curre nt Smoker eCW1 ([facility]) Smoking 04/17/2020 12:00:00 AM EST Current Smoker completed Curre nt Smoker eCW1 ([facility]) Smoking 04/17/2020 12:00:00 AM EST Current Smoker completed Curre nt Smoker eCW1 ([facility]) Smoking 04/17/2020 12:00:00 AM EST Current Smoker completed Curre nt Smoker eCW1 ([facility]) Smoking 04/10/2020 12:00:00 AM EST Current Smoker completed Curre nt Smoker eCW1 ([facility]) Smoking 04/03/2020 12:00:00 AM EST Current Smoker completed Curre nt Smoker eCW1 ([facility]) Smoking 03/27/2020 12:00:00 AM EST Current Smoker completed Curre nt Smoker eCW1 ([facility]) Smoking 03/27/2020 12:00:00 AM EST Current Smoker completed Curre nt Smoker eCW1 ([facility]) Smoking 03/27/2020 12:00:00 AM EST Current Smoker completed Curre nt Smoker eCW1 ([facility]) Smoking 02/26/2020 12:00:00 AM EST Current Smoker completed Curre nt Smoker eCW1 ([facility]) Smoking 02/26/2020 12:00:00 AM EST Current Smoker completed Curre nt Smoker eCW1 ([facility]) Smoking 02/26/2020 12:00:00 AM EST Current Smoker completed Curre nt Smoker eCW1 ([facility]) Smoking 02/22/2020 12:00:00 AM EST Current Smoker completed Curre nt Smoker eCW1 ([facility]) Smoking 02/02/2020 12:00:00 AM EDT Current Smoker completed Curre nt Smoker eCW1 ([facility]) Vital Signs ID Date Data Source UNK Name Value Range Interpretation Code Description Data Source(s) Body weight 213.00 [lb_av] 213.00 [lb_av] MEDEN T ([facility]) Body mass index (BMI) [Ratio] 32.4 kg/m2 32.4 k g/m2 [facility] ([facility]) Body temperature 97.1 [degF] 97.1 [degF] [facility] Body height 68 [in_i] 68 [in_i] [facility] ([facility]) 5'8" Body weight 182.00 [lb_av] 182.00 [lb_av] MEDEN T ([facility]) Body mass index (BMI) [Ratio] 27.7 kg/m2 27.7 k g/m2 MEDENT ([facility]) [place] body weight 154 [lb_av] 154 [lb_av] MEDEN T ([facility]) Body weight 82.555 kg 82.555 kg [facility] Body surface area Derived from formula 1.96 m2 1.96 m2 MEDENT ([facility]) Systolic blood pressure 129 mm[Hg] 129 mm[Hg] M EDENT ([facility]) Diastolic blood pressure 90 mm[Hg] 90 mm[Hg] MEDENT ([facility]) Body temperature 97.6 [degF] 97.6 [degF] MEDENT ([facility]) Body height 68 [in_i] 68 [in_i] MEDENT ([facility]) 5'8" Body weight 160 [lb_av] 160 [lb_av] eCW1 ([facility]) Body height 68 [in_i] 68 [in_i] eCW1 ([facility]) Heart rate 96 /min 96 /min eCW1 ([facility]) Diastolic blood pressure 72 mm[Hg] 72 mm[Hg] eCW1 ([facility]) Respiratory rate 18 /min 18 /min eCW1 ([facility]) Body temperature 96.8 [degF] 96.8 [degF] eCW1 ( [facility]) Systolic blood pressure 136 mm[Hg] 136 mm[Hg] e CW1 ([facility]) Body mass index (BMI) [Ratio] 24.33 kg/m2 24.33 kg/m2 eCW1 ([facility]) Systolic blood pressure 134 mm[Hg] 134 mm[Hg] M EDENT ([facility]) Diastolic blood pressure 78 mm[Hg] 78 mm[Hg] MEDENT ([facility]) Heart rate 80 /min 80 /min MEDENT ([facility]) Respiratory rate 20 /min 20 /min [facility]) Oxygen saturation in Arterial blood by Pulse oximetry 98 % 98 % MEDENT ([facility]) Body temperature 97.8 [degF] 97.8 [degF] MEDENT ([facility], [facility]) Body weight 174.00 [lb_av] 174.00 [lb_av] MEDEN T ([facility]) Body height 68 [in_i] 68 [in_i] MEDAYLA ([facility]) 5'8" Body mass index (BMI) [Ratio] 26.5 kg/m2 26.5 k g/m2 MEDENT ([facility]) Body weight 194 [lb_av] 194 [lb_av] eCW1 ([facility]) Body weight kg eCW1 ([facility]) Body height 68 [in_i] 68 [in_i] eCW1 ([facility]) Body mass index (BMI) [Ratio] 29.49 kg/m2 29.49 kg/m2 W1 ([facility]) Heart rate 100 /min 100 /min eCW1 ([facility]) Respiratory rate 18 /min 18 /min eCW1 ([facility]) Body temperature 96.3 [degF] 96.3 [degF] eCW1 ( [facility]) Systolic blood pressure 120 mm[Hg] 120 mm[Hg] e CW1 ([facility]) Diastolic blood pressure 73 mm[Hg] 73 mm[Hg] eCW1 ([facility]) Body weight 194 [lb_av] 194 [lb_av] eCW1 ([facility]) Body height 68 [in_i] 68 [in_i] eCW1 ([facility]) Body mass index (BMI) [Ratio] 29.49 kg/m2 29.49 kg/m2 eCW1 ([facility]) Heart rate 72 /min 72 /min eCW1 ([facility]) Respiratory rate 18 /min 18 /min eCW1 ([facility]) Body temperature 96.9 [degF] 96.9 [degF] eCW1 ( [facility]) Systolic blood pressure 139 mm[Hg] 139 mm[Hg] e CW1 ([facility]) Diastolic blood pressure 75 mm[Hg] 75 mm[Hg] eCW1 ([facility]) Body weight 194 [lb_av] 194 [lb_av] eCW1 ([facility]) Body weight kg eCW1 ([facility]) Body height 68 [in_i] 68 [in_i] eCW1 ([facility]) Body mass index (BMI) [Ratio] 29.49 kg/m2 29.49 kg/m2 eCW1 ([facility]) Heart rate 71 /min 71 /min eCW1 ([facility]) Respiratory rate 18 /min 18 /min eCW1 ([facility]) Body temperature 97.3 [degF] 97.3 [degF] eCW1 ( [facility]) Systolic blood pressure 130 mm[Hg] 130 mm[Hg] e CW1 ([facility]) Diastolic blood pressure 62 mm[Hg] 62 mm[Hg] eCW1 ([facility]) Body weight 194 [lb_av] 194 [lb_av] eCW1 ([facility]) Body height 68 [in_i] 68 [in_i] eCW1 ([facility]) Body mass index (BMI) [Ratio] 29.49 kg/m2 29.49 kg/m2 eCW1 ([facility]) Heart rate 84 /min 84 /min eCW1 ([facility]) Respiratory rate 18 /min 18 /min eCW1 ([facility]) Body temperature 96.9 [degF] 96.9 [degF] eCW1 ( [facility]) Systolic blood pressure 116 mm[Hg] 116 mm[Hg] e CW1 ([facility]) Diastolic blood pressure 73 mm[Hg] 73 mm[Hg] eCW1 ([facility]) Body weight 194 [lb_av] 194 [lb_av] eCW1 ([facility]) Body height 68 [in_i] 68 [in_i] eCW1 ([facility]) Body mass index (BMI) [Ratio] 29.49 kg/m2 29.49 kg/m2 eCW1 ([facility]) Heart rate 92 /min 92 /min eCW1 ([facility]) Respiratory rate 18 /min 18 /min eCW1 ([facility]) Body temperature 96.6 [degF] 96.6 [degF] eCW1 ( [facility]) Systolic blood pressure 122 mm[Hg] 122 mm[Hg] e CW1 ([facility]) Diastolic blood pressure 80 mm[Hg] 80 mm[Hg] eCW1 ([facility]) Body weight 211 [lb_av] 211 [lb_av] eCW1 ([facility]) Body height 68 [in_i] 68 [in_i] eCW1 ([facility]) Body mass index (BMI) [Ratio] 32.08 kg/m2 32.08 kg/m2 eCW1 ([facility]) Heart rate 70 /min 70 /min eCW1 ([facility]) Respiratory rate 18 /min 18 /min eCW1 ([facility]) Body temperature 96.2 [degF] 96.2 [degF] eCW1 ( [facility]) Systolic blood pressure 142 mm[Hg] 142 mm[Hg] e CW1 ([facility]) Diastolic blood pressure 80 mm[Hg] 80 mm[Hg] eCW1 ([facility]) Body weight 206 [lb_av] 206 [lb_av] eCW1 ([facility]) Body height 68 [in_i] 68 [in_i] eCW1 ([facility]) Body mass index (BMI) [Ratio] 31.32 kg/m2 31.32 kg/m2 eCW1 ([facility]) Heart rate 89 /min 89 /min eCW1 ([facility]) Respiratory rate 18 /min 18 /min eCW1 ([facility]) Body temperature 97.1 [degF] 97.1 [degF] eCW1 ( [facility]) Systolic blood pressure 138 mm[Hg] 138 mm[Hg] e CW1 ([facility]) Diastolic blood pressure 84 mm[Hg] 84 mm[Hg] eCW1 ([facility]) Body weight 212 [lb_av] 212 [lb_av] eCW1 ([facility]) Heart rate 89 /min 89 /min eCW1 ([facility]) Body height 68 [in_i] 68 [in_i] eCW1 ([facility]) Respiratory rate 18 /min 18 /min eCW1 ([facility]) Body temperature 96.8 [degF] 96.8 [degF] eCW1 ( [facility]) Systolic blood pressure 128 mm[Hg] 128 mm[Hg] e CW1 ([facility]) Body mass index (BMI) [Ratio] 32.23 kg/m2 32.23 kg/m2 eCW1 ([facility]) Diastolic blood pressure 72 mm[Hg] 72 mm[Hg] eCW1 ([facility]) Patient Treatment Plan of Care Planned Activity Planned Date Details Description Data Source (s) Levofloxacin 500 MG Oral Tablet 09/26/2020 12:00:00 AM EDT eCW1 ([facility]) Polymyxin B-Trimethoprim 42162-9.1 UNIT/ML-% 07/11/2020 01:00:00 AM EDT NETSDELOIT ([facility]) BuPROPion HCl ER (Smoking Det) 150 MG 05/31/2020 12:00:00 AM EST [facility] ([facility]) Metoprolol Tartrate 100 MG 05/30/2020 12:00:00 AM EST [facility] ([facility]) Furosemide 40 MG 05/30/2020 12:00:00 AM EST [facility]) Atorvastatin Calcium 20 MG 05/30/2020 12:00:00 AM EST [facility] ([facility]) MetFORMIN HCl 1000 MG 05/30/2020 12:00:00 AM EST [facility] ([facility]) Tamsulosin HCl 0.4 MG 05/30/2020 12:00:00 AM EST [facility] ([facility]) Vitamin D3 1000 UNIT 05/30/2020 12:00:00 AM EST [facility] ([facility]) Digoxin 125 MCG 05/30/2020 12:00:00 AM EST [facility] ([facility]) Aspirin 05/30/2020 12:00:00 AM EST N [facility] ([facility]) Lisinopril 2.5 MG 05/30/2020 12:00:00 AM EST [facility] ([facility]) Docusate Sodium 100 MG 05/30/2020 12:00:00 AM EST [facility] ([facility]) Tylenol Extra Strength 500 MG 05/30/2020 12:00:00 AM EST [facility] ([facility]) Ciprofloxacin 500 MG Oral Tablet [Cipro] 03/28/2020 12:00:00 AM EST eCW1 ([facility]) Ciprofloxacin 500 MG Oral Tablet [Cipro] 03/28/2020 12:00:00 AM EST eCW1 ([facility]) Ciprofloxacin 500 MG Oral Tablet [Cipro] 03/28/2020 12:00:00 AM EST eCW1 ([facility])
--- OUTSIDE RECORDS SUMMARY | 2021-02-05 06:38 | CCD | Continuity of Care Document ---
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 Name Role Phone Kelsi Askew MD AUTM [phone] Problems Active Problems Provider Date Essential hypertension Mathieu Black MD Onset: 05/21/2017 Pure hypercholesterolemia Mathieu Black MD Onset: 018 Type 2 diabetes mellitus [...] Tylenol With Codeine #3 300-30mg T ablets 1-2 tabs every 6 hours as needed pain 30tabs S40.012D Mathieu Black MD 12/06/2020 Atorvastatin Calcium 20mg Tablets 1 [...] Result H/L Range Note Respiratory Panel 09/28/2020 [facility] ntr [address] [place] [address] (315)- - Respiratory Panel This respiratory <SEE NOTE> 1 Liver Profile 09/28/2020 [facility] ntr [address] [place] [address] (315)- - Ast/Sgot 16 U/L Normal 7-37 Alt/SGPT 37 U/L Normal 12-78 Alkaline Phosphatase 102 U/L Normal 45-117 Bilirubin,Total 0.3 mg/dL Normal 0.2-1.0 Bilirubin,Direct 0.1 mg/dL Normal 0.0-0.2 Total Protein 6.6 GM/DL Normal 6.4-8.2 Albumin 3.4 GM/DL Normal 3.2-5.2 Albumin/Globulin Ratio 1.1 Normal CBC With Differential 09/28/2020 [facility] [address] [place] [address] (315)- - White Blood Count 8.4 10 [...] 36.0-66.0 Lymph % 14.9 % Low 24.0-44.0 [place] % 11.0 % High 2.0-8.0 Eos % 5.1 % High 0.0-3.0 Baso % 1.0 % Normal 0.0-1.0 Immature Granulocyte % 0.2 % Normal 0-3.0 Nucleated Red Blood Cell % 0.0 % Normal 0-0 Neutrophils # 5.7 10 Normal 1.5-8.5 Lymph # 1.3 10 Low 1.5-5.0 [place] # 0.9 10 High 0.0-0.8 Eos # [...] TO CLUMPING. Procedures Date Code Description Status 12/06/2020 78649 X-Ray Shoulder Complete Complete d 11/29/2020 40798 Office/Outpatient New Moderate M DM 45-59 Minutes Completed 11/29/2020 64828 FX Proximal Humerus W/O Manipula tion Completed Medical Devices Description No Information Available Encounters Type Date Location Provider Dx Diagnosis Office Visit 12/06/2020 8:30a [place] Candi Black PA-C S40.012 D Contusion of left shoulder, subsequent encounter S42.255D Nondisp fx of greater tubero sity of l humer, 7thD Office Visit 11/29/2020 9:00a [place] YADIEL Davalos S40.012A Contusion of left shoulder, initial encounter S42.255A Nondisp fx of greater tubero sity of left humerus, init Assessments Date Code Description Provider 12/06/2020 S40.012D Contusion of left shoulder, subs equent encounter Candi Black PA-C 12/06/2020 S42.255D Nondisplaced fractur e of greater tuberosity of left humerus, subsequent encounter for fracture with routine healing Candi Black PA-C 11/29/2020 S40.012A Contusion of left shoulder, init ial encounter YADIEL Davalos 11/29/2020 S42.255A Nondisplaced fractur e of greater tuberosity of left humerus, initial encounter for closed fracture YADIEL Davalos Plan of Treatment 12/06/2020 - Candi Black PA-C* S40.012D Contusion of left shoulder, subsequent encounter* New Medication:* Tylenol With Codeine #3 300-30 mg - 1-2 tabs every 6 hours as needed pain * S42.255D Nondisplaced fracture of greater tuberosity of left humerus, subsequent encounter for fracture with routine healing* Follow up:* in 2 weeks with IID for repeat x-rays Functional Status Description No Information Available Mental Status Description No Information Available Referrals Description No Information Available
--- OUTSIDE RECORDS SUMMARY | 2021-02-05 06:38 | CCD | Continuity of Care Document ---
Author Author Duke OTERO PA Organization Unknown Address [address] [place] [address], [address] [place] [address] Phone [phone] Care Team Providers Care Recreation Center Director Name Role Phone Kelsi Askew MD AUTM [...] Result H/L Range Note Respiratory Panel 09/28/2020 [facility] ntr [address] [place] [address] (315)- - Respiratory Panel This respiratory <SEE NOTE> 1 Liver Profile 09/28/2020 [facility] ntr [address] [place] [address] (315)- - Ast/Sgot 16 U/L Normal 7-37 Alt/SGPT 37 U/L Normal 12-78 Alkaline Phosphatase 102 U/L Normal 45-117 Bilirubin,Total 0.3 mg/dL Normal 0.2-1.0 Bilirubin,Direct 0.1 mg/dL Normal 0.0-0.2 Total Protein 6.6 GM/DL Normal 6.4-8.2 Albumin 3.4 GM/DL Normal 3.2-5.2 Albumin/Globulin Ratio 1.1 Normal CBC With Differential 09/28/2020 [facility] [address] [place] [address] (315)- - White Blood Count 8.4 10 [...] 36.0-66.0 Lymph % 14.9 % Low 24.0-44.0 [place] % 11.0 % High 2.0-8.0 Eos % 5.1 % High 0.0-3.0 Baso % 1.0 % Normal 0.0-1.0 Immature Granulocyte % 0.2 % Normal 0-3.0 Nucleated Red Blood Cell % 0.0 % Normal 0-0 Neutrophils # 5.7 10 Normal 1.5-8.5 Lymph # 1.3 10 Low 1.5-5.0 [place] # 0.9 10 High 0.0-0.8 Eos # [...] CLUMPING. Procedures Date Code Description Status 12/06/2020 34075 Office/Outpatient Established Lo w MDM 20-29 Min Completed 12/06/2020 61833 X-Ray Shoulder Complete Complete d 11/29/2020 72786 Office/Outpatient New Moderate M DM 45-59 Minutes Completed Medical Devices Description No Information Available Encounters Type Date Location Provider Dx Diagnosis Office Visit 12/06/2020 8:30a [place] Candi Her PA-C S42.295 D Oth nondisp fx of upr end l humer, subs for fx w routn heal Office Visit 11/29/2020 9:00a [place] YADIEL Davalos S42.295A Oth nondisp fx of upper end of left humerus, init Assessments Date Code Description Provider 12/06/2020 S42.295D Other nondisplaced f racture of upper end of left humerus, subsequent encounter for fracture with routine healing Candi Her PA-C 11/29/2020 S42.295A Other nondisplaced f racture of upper end of left humerus, initial encounter for closed fracture YADIEL Davalos Plan of Treatment Future Appointment(s):* 01/03/2021 11:15 am - YADIEL Davalos at [place] 12/06/2020 - YADIEL Merino-C* S42.295D Other nondisplaced fracture of upper end of left humerus, subsequent encounter for fracture with routine healing* New Medication:* Tylenol With Codeine #3 300-30 mg - 1 tabs every 6 hours as needed pain * Follow up:* in 2 weeks with IID for repeat x-rays Functional Status Description No Information Available Mental Status Description No Information Available Referrals Description No Information Available
--- OUTSIDE RECORDS SUMMARY | 2021-02-05 06:38 | CCD | Continuity of Care Document ---
Author Author Duke OTERO PA Organization Unknown Address [address] [place] [address], [address] [place] [address] Phone [phone] Care Team Providers Care Gis Database Administrator Name Role Phone Kelsi Askew MD AUTM [phone] Problems Active Problems Provider Date Essential hypertension Mathieu Her MD Onset: 05/21/2017 Pure hypercholesterolemia Mtahieu Her MD Onset: 018 Type 2 diabetes [...] Result H/L Range Note Respiratory Panel 09/28/[address] [facility] ntr [address] [place] [address] (315)- - Respiratory Panel This respiratory <SEE NOTE> 1 Liver Profile 09/28/[address] [facility] ntr [address] [place] [address] (315)- - Ast/Sgot 16 U/L Normal 7-37 Alt/SGPT 37 U/L Normal 12-78 Alkaline Phosphatase 102 U/L Normal 45-117 Bilirubin,Total 0.3 mg/dL Normal 0.2-1.0 Bilirubin,Direct 0.1 mg/dL Normal 0.0-0.2 Total Protein 6.6 GM/DL Normal 6.4-8.2 Albumin 3.4 GM/DL Normal 3.2-5.2 Albumin/Globulin Ratio 1.1 Normal CBC With Differential 09/28/2020 [facility] [address] [place] [address] (315)- - White Blood Count 8.4 10 [...] 36.0-66.0 Lymph % 14.9 % Low 24.0-44.0 [place] % 11.0 % High 2.0-8.0 Eos % 5.1 % High 0.0-3.0 Baso % 1.0 % Normal 0.0-1.0 Immature Granulocyte % 0.2 % Normal 0-3.0 Nucleated Red Blood Cell % 0.0 % Normal 0-0 Neutrophils # 5.7 10 Normal 1.5-8.5 Lymph # 1.3 10 Low 1.5-5.0 [place] # 0.9 10 High 0.0-0.8 Eos # [...] CLUMPING. Procedures Date Code Description Status 01/03/2021 49670 X-Ray Shoulder Complete Complete d 12/06/2020 21682 Office/Outpatient Established Lo w MDM 20-29 Min Completed 12/06/2020 01414 X-Ray Shoulder Complete Complete d 11/29/2020 00864 Office/Outpatient New Moderate M DM 45-59 Minutes Completed Medical Devices Description No Information Available Encounters Type Date Location Provider Dx Diagnosis Office Visit 01/03/2021 11:15a [place] S42.295D Oth nondisp fx of upr end l humer, subs for fx w [facility] Office Visit 12/06/2020 8:30a [place] Her PA-C S42.295 D Oth nondisp fx of upr end l humer, subs for fx w [facility] Office Visit 11/29/2020 9:00a [place] S42.295A Oth nondisp fx of upper [...] closed fracture YADIEL Davalos Plan of Treatment 01/03/2021 - YADIEL Davalos* S42.295D Other nondisplaced fracture of upper end of left humerus, subsequent encounter for fracture with routine healing* Follow up:* 3 week lt shoulder recheck w/IID, please repeat x-rays Functional Status Description No Information Available Mental Status Description No Information Available Referrals Description No Information Available
--- OUTSIDE RECORDS SUMMARY | 2021-02-05 06:38 | CCD | Continuity of Care Document ---
Author Author Duke OTERO PA Organization Unknown Address [address] [place] [address], [address] [place] [address] Phone [phone] Care Team Providers Care Automobile Rental Clerk Name Role Phone Kelsi Askew MD AUTM Problems Active Problems Provider Date Essential hypertension Mathieu Her MD Onset: 05/21/2017 Pure hypercholesterolemia Mathieu Her MD Onset: 018 Social History Type Date Description Comments Sex Unknown ETOH Use Rarely consumes alcohol Tobacco Use Start: Unknown Patient is a current smoker, smo kes every day Allergies, Adverse Reactions, Alerts Description No Known Drug Allergies Medications Active Medications SIG Qnty Indications Ordering Provide r Date [place] 5-325mg Tablets take 1-2 tabs by mouth every 6 hours as needed pain 40tabs S42.254A Mathieu frazier MD 05/21/2017 Atorvastatin Calcium 20mg Tablets 1 by mouth [...] Result H/L Range Note Respiratory Panel 09/28/2020 [facility] ntr [address] [place] [address] (315)- - Respiratory Panel This respiratory <SEE NOTE> 1 Liver Profile 09/28/2020 [facility] ntr [address] [place] [address] (315)- - Ast/Sgot 16 U/L Normal 7-37 Alt/SGPT 37 U/L Normal 12-78 Alkaline Phosphatase 102 U/L Normal 45-117 Bilirubin,Total 0.3 mg/dL Normal 0.2-1.0 Bilirubin,Direct 0.1 mg/dL Normal 0.0-0.2 Total Protein 6.6 GM/DL Normal 6.4-8.2 Albumin 3.4 GM/DL Normal 3.2-5.2 Albumin/Globulin Ratio 1.1 Normal CBC With Differential 09/28/2020 [facility] [address] [place] [address] (315)- - White Blood Count 8.4 10 [...] 36.0-66.0 Lymph % 14.9 % Low 24.0-44.0 [place] % 11.0 % High 2.0-8.0 Eos % 5.1 % High 0.0-3.0 Baso % 1.0 % Normal 0.0-1.0 Immature Granulocyte % 0.2 % Normal 0-3.0 Nucleated Red Blood Cell % 0.0 % Normal 0-0 Neutrophils # 5.7 10 Normal 1.5-8.5 Lymph # 1.3 10 Low 1.5-5.0 [place] # 0.9 10 High 0.0-0.8 Eos # [...] TO CLUMPING. Procedures Date Code Description Status 11/29/2020 88811 Office/Outpatient New Moderate M DM 45-59 Minutes Completed 11/29/2020 17761 FX Proximal Humerus W/O Manipula tion Completed Medical Devices Description No Information Available Encounters Type Date Location Provider Dx Diagnosis Office Visit 11/29/2020 9:00a [place] YADIEL Davalos S40.012A Contusion of left shoulder, initial encounter S42.255A Nondisp fx of greater tubero sity of left humerus, init Assessments Date Code Description Provider 11/29/2020 S40.012A Contusion of left shoulder, init ial encounter YADIEL Davalos 11/29/2020 S42.255A Nondisplaced fractur e of greater tuberosity of left humerus, initial encounter for closed fracture YADIEL Davalos Plan of Treatment 11/29/2020 - YADIEL Davalos* S40.012A Contusion of left shoulder, initial encounter* Follow up:* 7-10 days with PA lt shoulder re-check with xrays * S42.255A Nondisplaced fracture of greater tuberosity of left humerus, initial encounter for closed fracture Functional Status Description No Information Available Mental Status Description No Information Available Referrals Description No Information Available
--- OUTSIDE RECORDS SUMMARY | 2021-02-05 06:38 | CCD | Continuity of Care Document ---
Author Author DARIO CHO, Duke Kellogg Organization Unknown Address [address] [facility] [address] [place] [address] Phone [phone] Care Team Providers Care Pay Clerk Name Role Phone EziodalilaLeslye N.P. AUTM [phone] Problems Active Problems Provider Date Essential hypertension [...] lb BMI (Body Mass Index) 27.7 kg/m2 [place] Body Weight 154 lb Weight 82.555 kg BSA (Body Surface Area) 1.96 m2 Results Description No Information Available Procedures Description No Information Available Medical Devices Description No Information Available Encounters Description No Information Available Assessments Description No Information Available Plan of Treatment No Information Available Functional Status Description No Information Available Mental Status Description No Information Available Referrals Refer to Reason for Referral Status Appt Date Naresh Haynes MD COLONOSCOPY Scheduled 10/03/[address] [place] [id number] [phone]
--- OUTSIDE RECORDS SUMMARY | 2021-02-05 06:38 | CCD | Continuity of Care Document ---
Author Author Duke BLACK PA-C Organization Unknown Address [address] [place] [address] Phone [phone] Care Team Providers Care Piece Jobber Name Role Phone Kelsi Askew MD AUTM [phone] Problems Active Problems Provider Date Essential [...] hours as needed pain 30tabs S42.295D Mathieu Black MD 12/06/2020 Atorvastatin Calcium 20mg [...] Result H/L Range Note Respiratory Panel 09/28/2020 [facility] ntr [address] [place] [address] (315)- - Respiratory Panel This respiratory <SEE NOTE> 1 Liver Profile 09/28/2020 [facility] ntr [address] [place] [address] (315)- - Ast/Sgot 16 U/L Normal 7-37 Alt/SGPT 37 U/L Normal 12-78 Alkaline Phosphatase 102 U/L Normal 45-117 Bilirubin,Total 0.3 mg/dL Normal 0.2-1.0 Bilirubin,Direct 0.1 mg/dL Normal 0.0-0.2 Total Protein 6.6 GM/DL Normal 6.4-8.2 Albumin 3.4 GM/DL Normal 3.2-5.2 Albumin/Globulin Ratio 1.1 Normal CBC With Differential 09/28/2020 [facility] [address] [place] [address] (315)- - White Blood Count 8.4 10 [...] 36.0-66.0 Lymph % 14.9 % Low 24.0-44.0 [place] % 11.0 % High 2.0-8.0 Eos % 5.1 % High 0.0-3.0 Baso % 1.0 % Normal 0.0-1.0 Immature Granulocyte % 0.2 % Normal 0-3.0 Nucleated Red Blood Cell % 0.0 % Normal 0-0 Neutrophils # 5.7 10 Normal 1.5-8.5 Lymph # 1.3 10 Low 1.5-5.0 [place] # 0.9 10 High 0.0-0.8 Eos # [...] CLUMPING. Procedures Date Code Description Status 12/06/2020 30237 Office/Outpatient Established Lo w MDM 20-29 Min Completed 12/06/2020 03737 X-Ray Shoulder Complete Complete d 11/29/2020 57077 Office/Outpatient New Moderate M DM 45-59 Minutes Completed Medical Devices Description No Information Available Encounters Type Date Location Provider Dx Diagnosis Office Visit 12/06/2020 8:30a [place] Candi Black PA-C S42.295 D Oth nondisp fx of upr end l humer, subs for fx w routn heal Office Visit 11/29/2020 9:00a [place] YADIEL Davalos S42.295A Oth nondisp fx of upper end of left humerus, init Assessments Date Code Description Provider 12/06/2020 S42.295D Other nondisplaced f racture of upper end of left humerus, subsequent encounter for fracture with routine healing Candi Black PA-C 11/29/2020 S42.295A Other nondisplaced f racture of upper end of left humerus, initial encounter for closed fracture YADIEL Davalos Plan of Treatment Future Appointment(s):* 01/03/2021 11:15 am - YADIEL Davalos at [place] 12/06/2020 - YADIEL Merino-C* S42.295D Other nondisplaced [...]
[2021-02-05] MEDS ORDERED: LIDOCAINE 2% 100MG/5ML SDV (FOR ANES.) As Ordered ONE (06:48)
[2021-02-05] MEDS ORDERED: propofoL 200 MG/20 ML VIAL As Ordered ONE (06:48)
[2021-02-05] MEDS ORDERED: ELEVIEW SUBMUCOSAL INJ 10ML AMP As Ordered ONE (08:04)
[2021-02-05] MEDS ORDERED: fentaNYL 100 MCG/2 ML INJECTION (J3010) As Ordered ONE (08:06)
--- NOTE | 2021-02-05 08:33 | ROOR ---
Patient Name: Duke Vazquez Procedure Date: 02/05/2021 7:31 AM Date of : 1950 Age: 71 Room: [facility] Gender: Male Note Status: Finalized Procedure: Colonoscopy Indications: High risk colon cancer surveillance: Personal history of colonic polyps Providers: Naresh Haynes MD Referring MD: [facility]in [facility], Admin. Requesting Provider: Medicines: Monitored Anesthesia Care Complications: No immediate complications. Procedure: Pre-Anesthesia Assessment: - Prior to the procedure, a History and Physical was performed, and patient medications and allergies were reviewed. The patient is competent. The risks and benefits of the procedure and the sedation options and risks were discussed with the patient. All questions were answered and informed consent was obtained. Patient identification and proposed procedure were verified by the physician, the nurse and the anesthesiologist in the endoscopy suite. Mental Status Examination: alert and oriented. Airway Examination: normal oropharyngeal airway and neck mobility. Respiratory Examination: clear to auscultation. CV Examination: normal. Prophylactic Antibiotics: The patient does not require prophylactic antibiotics. Prior Anticoagulants: The patient has taken no previous anticoagulant or antiplatelet agents except for aspirin. ASA Grade Assessment: III - A patient with severe systemic disease. After reviewing the risks and benefits, the patient was deemed in satisfactory condition to undergo the procedure. The anesthesia plan was to use monitored anesthesia care (MAC). Immediately prior to administration of medications, the patient was re-assessed for adequacy to receive sedatives. The heart rate, respiratory rate, oxygen saturations, blood pressure, adequacy of pulmonary ventilation, and response to care were monitored throughout the procedure. The physical status of the patient was re-assessed after the procedure. The Colonoscope was introduced through the anus and advanced to the cecum, identified by appendiceal orifice and ileocecal valve. The colonoscopy was somewhat difficult due to the patient's discomfort during the procedure. The patient tolerated the procedure fairly well. The quality of the bowel preparation was adequate to identify polyps. Findings: Hemorrhoids were found on perianal exam. Two flat polyps were found in the transverse colon. The polyps were 2 to 5 mm in size. These polyps were removed with a hot snare. Resection and retrieval were complete. Estimated blood loss was minimal. Two flat polyps were found in the splenic flexure. The polyps were 5 to 10 mm in size. Area was successfully injected with 3 mL Eleview for lesion assessment, and this injection appeared to lift the lesion adequately. These polyps were removed with a hot snare. Resection and retrieval were complete. Estimated blood loss was minimal. Three sessile polyps were found in the sigmoid colon. The polyps were 1 to 2 mm in size. These polyps were removed with a jumbo cold forceps. Resection and retrieval were complete. Estimated blood loss was minimal. A few small-mouthed diverticula were found in the sigmoid colon. The retroflexed view of the distal rectum and anal verge was normal and showed no anal or rectal abnormalities. Impression: - Hemorrhoids found on perianal exam. - Two 2 to 5 mm polyps in the transverse colon, removed with a hot snare. Resected and retrieved. - Two 5 to 10 mm polyps at the splenic flexure, removed with a hot snare. Resected and retrieved. Injected. - Three 1 to 2 mm polyps in the sigmoid colon, removed with a jumbo cold forceps. Resected and retrieved. - Diverticulosis in the sigmoid colon. - The distal rectum and anal verge are normal on retroflexion view. Recommendation: - Discharge patient to home (ambulatory). - Repeat colonoscopy in 3 - 5 years for surveillance based on pathology results. - Await pathology results. Procedure Code(s): --- Professional --- 64882, Colonoscopy, flexible; with removal of tumor(s), polyp(s), or other lesion(s) by snare technique 97853, Colonoscopy, flexible; with directed submucosal injection(s), any substance 31312, 59, Colonoscopy, flexible; with biopsy, single or multiple Diagnosis Code(s): --- Professional --- Z86.010, Personal history of colonic polyps K64.9, Unspecified hemorrhoids K63.5, Polyp of colon K57.30, Diverticulosis of large intestine without perforation or abscess without bleeding CPT copyright 2019 [employer]. All rights reserved. The codes documented in this report are preliminary and upon nurse navigator review may be revised to meet current compliance requirements. Naresh Haynes MD Naresh Haynes MD 02/05/2021 8:33:04 AM Electronically signed by Naresh Haynes MD Number of Addenda: 0 Note Initiated On: 02/05/2021 7:31 AM Estimated Blood Loss: Estimated blood loss was minimal.
[2021-02-05 08:45] VITALS: BP 128/79
== END 2021-02-05 08:59 | disposition home or self-care (01) ==
LOC: M OPP 06:34
PROVIDERS: ATTEND Surgery
DX: Z12.11 Encounter for screening for malignant neoplasm of colon (principal); Z86.010 Personal history of colon polyps; K63.5 Polyp of colon; K57.30 Diverticulosis of large intestine without perforation or abscess without bleeding; K64.8 Other hemorrhoids; E11.9 Type 2 diabetes mellitus without complications; Z79.82 Long term (current) use of aspirin; Z79.84 Long term (current) use of oral hypoglycemic drugs; Z79.899 Other long term (current) drug therapy
CPT/HCPCS: 45380; 45381; 45385; 88305; J3010

== ENCOUNTER → 2021-03-12 | Outpatient (CLI) | payer OTHER ==
[~2021-03-12] MED LIST changes: -NS 1,000 ML IV ONE
--- NOTE | 2021-03-12 14:56 | REP ---
INDICATION: SOLITARY PULMONARY NODULE COMPARISON: 03/13/2020 TECHNIQUE: Standard helical technique without contrast FINDINGS: The mediastinum and pulmonary maria esther are stable. There is no evidence of a mass or adenopathy. There is no significant change in appearance of the imaged upper abdomen or imaged osseous structures. There is multilevel spinal degenerative changes and discogenic change. Evaluation of the lung guerra shows no new abnormal nodules, masses, or opacities. The airspace opacities seen on the prior exam have all resolved. There are mild stable chronic lung field changes status quo. IMPRESSION: No evidence of acute disease. Findings as described above. <Electronically signed by Jack Adair > 03/12/21 4734
== END ==
LOC: M RAD 13:40
PROVIDERS: ATTEND Nurse Practitioner Primary Care
DX: R91.8 Other nonspecific abnormal finding of lung field (principal)

== ENCOUNTER → 2021-03-26 | Outpatient (REF) | payer OTHER ==
[~2021-03-26] MED LIST changes: -LISI-898 PO; +LISI5TAB11 PO
[2021-03-26 13:45] LABS: APPEARANCE, URINE CLEAR (CLEAR); BACTERIA, URINE AUTO 1+ (NEGATIVE); BILIRUBIN, URINE AUTO NEGATIVE (NEGATIVE); BLOOD, URINE BLOOD 1+ (NEGATIVE); COLOR, URINE STRAW (YELLOW); GLUCOSE, URINE (UA) AUTO 3+ mg/dL (NEGATIVE); KETONE, URINE AUTO NEGATIVE (NEGATIVE); LEUKOCYTE ESTERASE, URINE AUTO 2+ (NEGATIVE); MUCUS, URINE SMALL (NEGATIVE); NITRITE, URINE AUTO NEGATIVE (NEGATIVE); PROTEIN, URINE AUTO NEGATIVE (NEGATIVE); RBC, URINE AUTO 1 /HPF (0-3); SPECIFIC GRAVITY URINE AUTO 1.003 (1.002-1.035); SQUAMOUS EPITHELIAL CELL UR AU 0 /HPF (0-6); UROBILINOGEN, URINE AUTO 0.2 mg/dL (0.0-2.0); WBC, URINE AUTO 35 /HPF (0-3)
== END ==
LOC: M SMT 13:12
PROVIDERS: ATTEND Nurse Practitioner Women's Health
DX: R35.0 Frequency of micturition (principal)
CPT/HCPCS: 51798; 81001; 87088; 87186; G0463

== ENCOUNTER → 2021-06-18 | Outpatient (REF) | payer OTHER ==
[~2021-06-18] MED LIST changes: +DITR1TAB PO; +NITR100C2
[2021-06-18 19:40] LABS: APPEARANCE, URINE HAZY (CLEAR); BACTERIA, URINE AUTO 1+ (NEGATIVE); BILIRUBIN, URINE AUTO NEGATIVE (NEGATIVE); BLOOD, URINE BLOOD NEGATIVE (NEGATIVE); COLOR, URINE AMBER (YELLOW); GLUCOSE, URINE (UA) AUTO 2+ mg/dL (NEGATIVE); KETONE, URINE AUTO TRACE mg/dL (NEGATIVE); LEUKOCYTE ESTERASE, URINE AUTO 2+ (NEGATIVE); MUCUS, URINE SMALL (NEGATIVE); NITRITE, URINE AUTO NEGATIVE (NEGATIVE); PROTEIN, URINE AUTO NEGATIVE (NEGATIVE); RBC, URINE AUTO 2 /HPF (0-3); SPECIFIC GRAVITY URINE AUTO 1.028 (1.002-1.035); SQUAMOUS EPITHELIAL CELL UR AU 2 /HPF (0-6); WBC, URINE AUTO 73 /HPF (0-3)
== END ==
LOC: M SMT 16:49
PROVIDERS: ATTEND Nurse Practitioner Women's Health
DX: R31.29 Other microscopic hematuria (principal)

== ENCOUNTER 2021-06-25 07:53 | Emergency (ER) | payer MEDICARE, OTHER ==
[~2021-06-25] VITALS: Ht 172.7 cm; Wt 90.9 kg
[~2021-06-25 07:53] MED LIST changes: -DITR1TAB PO; -NITR100C2
[2021-06-25] MEDS ORDERED: DITR1TAB PO (08:02)
[2021-06-25] MEDS ORDERED: NITR100C2 (08:02)
[2021-06-25 10:42] VITALS: BP 114/68
== END 2021-06-25 11:05 | disposition home or self-care (01) ==
LOC: M ED 07:53
DX: J06.9 Acute upper respiratory infection, unspecified (principal); E11.9 Type 2 diabetes mellitus without complications; I10 Essential (primary) hypertension; J44.9 Chronic obstructive pulmonary disease, unspecified; I48.91 Unspecified atrial fibrillation; Z79.899 Other long term (current) drug therapy; Z79.82 Long term (current) use of aspirin; Z79.84 Long term (current) use of oral hypoglycemic drugs

== ENCOUNTER → 2022-08-06 | Outpatient (REF) | payer MEDICARE, OTHER ==
[~2022-08-06] MED LIST changes: -ACET1TAB16 PO; +ACET300T48 PO; +ALBU2.5V10 INH; +ALBU2.5V10 NEB; -ALBU83IN INH; -ALBU83IN NEB; +BUPR-71; -BUPR150T5; +DITR1TAB PO; +LEVO1TAB40 PO; -LEVO750T13 PO; +NITR100C2
[2022-08-06 14:47] LABS: APPEARANCE, URINE CLEAR (CLEAR); BACTERIA, URINE AUTO NEGATIVE (NEGATIVE); BILIRUBIN, URINE AUTO NEGATIVE (NEGATIVE); BLOOD, URINE BLOOD NEGATIVE (NEGATIVE); COLOR, URINE YELLOW (YELLOW); GLUCOSE, URINE (UA) AUTO 3+ mg/dL (NEGATIVE); KETONE, URINE AUTO TRACE mg/dL (NEGATIVE); LEUKOCYTE ESTERASE, URINE AUTO TRACE (NEGATIVE); NITRITE, URINE AUTO NEGATIVE (NEGATIVE); PROTEIN, URINE AUTO NEGATIVE (NEGATIVE); RBC, URINE AUTO 2 /HPF (0-3); SPECIFIC GRAVITY URINE AUTO 1.035 (1.002-1.035); SQUAMOUS EPITHELIAL CELL UR AU 0 /HPF (0-6); UROBILINOGEN, URINE AUTO 0.2 mg/dL (0.0-2.0); WBC, URINE AUTO 8 /HPF (0-3)
== END ==
LOC: M SMT 13:11
PROVIDERS: ATTEND Physician Assistant
DX: R31.9 Hematuria, unspecified (principal)

== ENCOUNTER 2022-11-23 07:58 | Emergency (ER) | payer MEDICARE, OTHER ==
[~2022-11-23 07:58] MED LIST changes: +BENZ200C70 PO; +MUCI1TAB16 PO; +POTA-298 PO; -POTA1TAB14 PO; +PROA1AER2 INH
[2022-11-23] MEDS ORDERED: IPRATROPIUM 0.5MG/ALBUTEROL 2.5MG INH SOL UD 3ML (DUONEB) NEB ONE (09:35)
[2022-11-23] MEDS ORDERED: VENTAER INH (12:10)
[2022-11-23] MEDS ORDERED: PRED20TA PO (12:10)
[2022-11-23 12:31] VITALS: BP 130/82; TEMP 98; O2SAT 95
== END 2022-11-23 12:33 | disposition home or self-care (01) ==
LOC: M ED 07:58
DX: J44.1 Chronic obstructive pulmonary disease with (acute) exacerbation (principal); I48.91 Unspecified atrial fibrillation; E11.9 Type 2 diabetes mellitus without complications; I10 Essential (primary) hypertension; E78.5 Hyperlipidemia, unspecified; F17.210 Nicotine dependence, cigarettes, uncomplicated; Z79.899 Other long term (current) drug therapy; Z79.84 Long term (current) use of oral hypoglycemic drugs

== ENCOUNTER → 2023-03-08 | Outpatient (REF) | payer OTHER ==
[~2023-03-08] MED LIST changes: +GLIP5TAB17; -GLIP5TAB8; +PRED20TA PO; +VENTAER INH
[2023-03-08 14:01] LABS: APPEARANCE, URINE HAZY (CLEAR); BACTERIA, URINE AUTO NEGATIVE (NEGATIVE); BILIRUBIN, URINE AUTO NEGATIVE (NEGATIVE); BLOOD, URINE BLOOD 1+ (NEGATIVE); COLOR, URINE YELLOW (YELLOW); GLUCOSE, URINE (UA) AUTO 3+ mg/dL (NEGATIVE); KETONE, URINE AUTO NEGATIVE (NEGATIVE); LEUKOCYTE ESTERASE, URINE AUTO 2+ (NEGATIVE); NITRITE, URINE AUTO NEGATIVE (NEGATIVE); PROTEIN, URINE AUTO NEGATIVE (NEGATIVE); RBC, URINE AUTO 1 /HPF (0-3); SPECIFIC GRAVITY URINE AUTO 1.037 (1.002-1.035); SQUAMOUS EPITHELIAL CELL UR AU 2 /HPF (0-6); UROBILINOGEN, URINE AUTO 0.2 mg/dL (0.0-2.0); WBC, URINE AUTO 47 /HPF (0-3)
== END ==
LOC: M SMT 13:27
PROVIDERS: ATTEND Physician Assistant
DX: Z87.898 Personal history of other specified conditions (principal)

== ENCOUNTER 2024-10-25 09:36 | Day surgery (SDC) | payer MEDICARE, OTHER ==
[~2024-10-25] VITALS: Ht 175.3 cm; Wt 82.0 kg
[~2024-10-25 09:36] MED LIST changes: -ASPI81TA26; +ASPI81TA26 PO; -DOCU100C16; +DOCU100C16 PO; -GLIP5TAB17; +GLIP5TAB17 PO; +JARD1TAB PO; +OXYB5TAB14 PO; +PIOG1TAB36 PO; +REFR0.5D8 OD
[2024-10-25 12:04] VITALS: TEMP 97.3
[2024-10-25 12:24] VITALS: BP 128/76; O2SAT 97
== END 2024-10-25 12:32 | disposition home or self-care (01) ==
LOC: M OPP 09:36
PROVIDERS: ATTEND Surgery
DX: K63.5 Polyp of colon (principal); K57.30 Diverticulosis of large intestine without perforation or abscess without bleeding; Z86.0100 Personal history of colon polyps, unspecified; I48.91 Unspecified atrial fibrillation; Z79.82 Long term (current) use of aspirin; Z79.84 Long term (current) use of oral hypoglycemic drugs; Z79.899 Other long term (current) drug therapy; J44.9 Chronic obstructive pulmonary disease, unspecified; F17.290 Nicotine dependence, other tobacco product, uncomplicated